=== PATIENT | male | born 1950 | race Caucasian/White ===

== ENCOUNTER 2021-12-14 21:43 | Emergency (ER) | payer MEDICARE, BC, SELFPAY ==
[2021-12-14 21:52] VITALS: PULSE 86; RESP 18; TEMP 36.9; BMI 26.2
--- NOTE | 2021-12-14 22:14 | ED_ITS ---
HPI - Male Genitourinary General Time Seen by Provider: 22:14 <Gladys Lebron MD - Last Filed: 12/15/21 01:26> Date Seen: 12/14/21 <Gladys Lebron MD - Last Filed: 12/15/21 01:26> Chief complaint: Urogenital Problems, Male <Gladys Lebron MD - Last Filed: 12/15/21 01:26> Stated complaint: fever, painful urination <Gladys Lebron MD - Last Filed: 12/15/21 01:26> Time Seen by Provider: 12/14/21 22:02 <Gladys Lebron MD - Last Filed: 12/15/21 01:26> Source: patient and RN notes reviewed <Gladys Lebron MD - Last Filed: 01:26> Mode of arrival: ambulatory <Gladys Lebron MD - Last Filed: 12/15/21 01:26> Limitations: no limitations <Gladys Lebron MD - Last Filed: 12/15/21 01:26> History of Present Illness HPI Narrative: Mr. Jim Is a very pleasant 71-year-old gentleman with remote history of urinary retention who comes to the [facility] with painful urinat ion. Patient notes the onset of urinary pain on WednesdayDecember 12. He states that this is also associated with a headache bilateral leg pain and some diarrhea. 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 that sometimes causes him headache. He did test for COVID at home on the 12 13 and then today. All his tests were negative. He denies a sore throat but has had a runny nose for approximately a week that he thinks his allergies. At home he felt like he had a fever but here in the emergency room initially that temp was normal. A 2nd check shows it to be 100.1 after he has been here and he received Tylenol. Patient denies cough wheezing chest pain difficulty breathing. He states that in the past he had to have a urinary catheter placed for urinary retention. He feels like he has some abdominal distension and thought it may be related to not being able to fully empty his bladder. He also notes that recently the bottom of his feet have been hurting him. <Gladys Lebron MD - Last Filed: 12/15/21 01:26> Related Data Home medications: Previous Rx's Medication Instructions Recorded cephalexin 500 mg capsule 500 mg PO TID Urinary infection 12/15/21 #30 caps <Gladys Lebron MD - Last Filed: 12/15/21 01:26> Allergies/Adverse reactions: Allergies Allergy/AdvReac Type Severity Reaction Status Date / Time Penicillins Allergy Unknown Verified 12/15/21 00:12 <Gladys Lebron MD - Last Filed: 12/15/21 01:26> Review of Systems Status of ROS: Reports: 10 or more systems reviewed and unremarkable except as noted in History and below <Gladys Lebrno MD - Last Filed: 12/15/21 01:26> Const: Reports: chills <Gladys Lebron MD - Last Filed: 12/15/21 01:26> Eyes: Denies: change in vision <Gladys Lebron MD - Last Filed: 12/15/21 01:26> ENMT: Denies: throat pain or throat swelling <Gladys Lebron MD - Last Filed: 12/15/21 01:26> Cardio: Denies: chest pain, palpitations or shortness of breath with exertion <Gladys Lebron MD - Last Filed: 12/15/21 01:26> Resp: Denies: shortness of breath or cough <Gladys Lebron MD - Last Filed: 12/15/21 01:26> GI: Reports: abdominal pain and diarrhea; Denies: vomiting or blood in stool <Gladys Lebron MD - Last Filed: 12/15/21 01:26> : Reports: painful urination, urinary frequency, urinary urgency and blood in urine <Gladys Lebron MD - Last Filed: 12/15/21 01:26> Musculo: Reports: back pain <Gladys Lebron MD - Last Filed: 12/15/21 01:26> Neuro: Reports: headache <Gladys Lebron MD - Last Filed: 12/15/21 01:26> Allergy/Immuno: Denies: throat swelling <Gladys Lebron MD - Last Filed: 12/15/21 01:26> Exam Const: Vital Signs, click to edit/add: Vital Signs - 24 hr 12/14/21 21:52 12/14/21 23:41 12/15/21 01:09 Temperature 98.5 F 100.1 F H 100.6 F H Pulse Rate [Pulse Oximeter] 86 86 Respiratory Rate 18 18 Blood Pressure [Ri ght Upper Arm] 140/63 H Pulse Oximetry 95 Oxygen Delivery Me thod Room Air Room Air 12/15/21 01:09 12/15/21 00:00 12/15/21 00:30 Temperature 100.6 F H Pulse Rate [Pulse Oximeter] 80 Respiratory Rate 18 18 Blood Pressure [Ri ght Upper Arm] 138/65 136/63 Pulse Oximetry 95 Oxygen Delivery Me thod Room Air Room Air 12/15/21 01:00 12/15/21 02:00 12/15/21 02:30 Temperature Pulse Rate [Pulse Oximeter] 90 88 Respiratory Rate 18 18 Blood Pressure [Ri ght Upper Arm] 136/57 L 148/66 H 147/70 H Pulse Oximetry 94 94 Oxygen Delivery Me thod Room Air Room Air Room Air <Gladys Lebron MD - Last Filed: 12/15/21 01:26> Vital Signs, click to edit/add: Vital Signs - 24 hr 12/14/21 21:52 12/14/21 23:41 12/15/21 01:09 Temperature 98.5 F 100.1 F H 100.6 F H Pulse Rate [Pulse Oximeter] 86 86 Respiratory Rate 18 18 Blood Pressure [Ri ght Upper Arm] 140/63 H Pulse Oximetry 95 Oxygen Delivery Me thod Room Air Room Air 12/15/21 01:09 12/15/21 00:00 12/15/21 00:30 Temperature 100.6 F H Pulse Rate [Pulse Oximeter] 80 Respiratory Rate 18 18 Blood Pressure [Ri ght Upper Arm] 138/65 136/63 Pulse Oximetry 95 Oxygen Delivery Me thod Room Air Room Air 12/15/21 01:00 12/15/21 02:00 12/15/21 02:30 Temperature Pulse Rate [Pulse Oximeter] 90 88 Respiratory Rate 18 18 Blood Pressure [Ri ght Upper Arm] 136/57 L 148/66 H 147/70 H Pulse Oximetry 94 94 Oxygen Delivery Me thod Room Air Room Air Room Air <Lani Yuan MD - Last Filed: 12/15/21 03:47> Documenting provider has reviewed patient's vital signs: yes <Gladys naranjo MD - Last Filed: 12/15/21 01:26> Common normals: no apparent distress, oriented x3, no limitations and alert <Gladys Lebron MD - Last Filed: 12/15/21 01:26> General appearance: cooperative, comfortable and well kempt <Gladys Lebron MD - Last Filed: 12/15/21 01:26> HENMT: Common normals: normocephalic and head/scalp atraumatic <Gladys Lebron MD - Last Filed: 12/15/21 01:26> Head and scalp: normocephalic and atraumatic <Gladys Lebron MD - Last Filed: 12/15/21 01:26> Mouth: oral and palatal mucosa normal <Gladys Lebron MD - Last Filed: 12/15/21 01:26> Throat: posterior oropharynx normal <Gladys Lebron MD - Last Filed: 12/15/21 01:26> Eye: Common normals: PERRL <Gladys Lebron MD - Last Filed: 12/15/21 01:26> General eye: normal appearance of both eyes <Gladys Lebron MD - Last Filed: 12/15/21 01:26> Pupil: PERRL <Gladys Lebron MD - Last Filed: 12/15/21 01:26> Neck & C-Spine: Common normals: full ROM, no lymphadenopathy and supple <Gladys Lebron MD - Last Filed: 12/15/21 01:26> Resp: Common normals: normal respiratory effort and clear to auscultation bilaterally <MD Arnoldo Ji Last Filed: 12/15/21 01:26> Effort & inspection: able to speak in complete sentences <MD Arnoldo Ji Last Filed: 12/15/21 01:26> Auscultation: clear to auscultation bilaterally <MD Arnoldo Ji Last Filed: 12/15/21 01:26> Cardio: Common normals: regular rate and regular rhythm <Gladys Lebron MD - Last Filed: 12/15/21 01:26> Rate: regular rate <Gladys Lebron MD - Last Filed: 12/15/21 01:26> Rhythm: regular rhythm <Gladys Lebron MD - Last Filed: 12/15/21 01:26> GI: Common normals: soft to palpation <Gladys Lebron MD - Last Filed: 12/15/21 01:26> Palpation: soft <Gladys Lebron MD - Last Filed: 12/15/21 01:26> Other: Complaints of mild discomfort when pressing abdomen. No specific masses but abdomen does appear to be somewhat protuberant. <Gladys Lebron MD - Last Filed: 12/15/21 01:26> : Common normals: no CVA tenderness <Gladys Lebron MD - Last Filed: 12/15/21 01:26> Bladder/kidney exam: no CVA tenderness <Gladys Lebron MD - Last Filed: 12/15/21 01:26> Back & Pelvis: Common normals: no CVA tenderness <Gladys Lebron MD - Last Filed: 12/15/21 01:26> Extremity: Common normals: normal to inspection <Gladys Lebron MD - Last Filed: 12/15/21 01:26> Other: No pain with palpation. Bottom of feet are with normal color. <Gladys Lebron MD - Last Filed: 12/15/21 01:26> Neuro: Common normals: oriented x3 <Gladys Lebron MD - Last Filed: 12/15/21 01:26> Sensorium/orientation: alert <Gladys Lebron MD - Last Filed: 12/15/21 01:26> Psych: Common normals: mental status grossly normal and thought process normal <Gladys Lebron MD - Last Filed: 12/15/21 01:26> Appearance: well kempt <MD Arnoldo Ji Last Filed: 12/15/21 01:26> Thought process: normal thought process <MD Arnoldo Ji Last Filed: 12/15/21 01:26> Skin: Common normals: no rashes or lesions noted <Gladys Lebron MD - Last Filed: 12/15/21 01:26> General skin exam: no rashes or lesions noted <Gladys Lebron MD - Last Filed: 12/15/21 01:26> Course Course Hospital Course: At this time patient complains of dysuria. Urine by visualization prior to being sent to lab clearly has sediment and is slightly pink. Will also add testing to include CBC, comprehensive panel, COVID, CRP, blood cultures, lactate. IV will be established 1 L of normal saline will be given. <Gladys Lebron MD - Last Filed: 12/15/21 01:26> Reevaluation(s) Reevaluation #1: Patient's urine clearly a positive for urinary tract infection. Currently waiting on CBC and comprehensive panel elevation of CRP noted. Patient will receive Rocephin 1 g IV. Patient noted to have 115 residual urinary volume for postvoid. Melgar catheters offered and patient would like to go forward with this. Uro jet ordered. <Gladys Lebron MD - Last Filed: 12/15/21 01:26> Reevaluation #2: Patient medications: Atorvastatin 20 mg charlene Flomax 0.4 mg daily Viagra <Gladys Lebron MD - Last Filed: 12/15/21 01:26> Vital Signs Vital signs: Initial Vital Signs Temperature 98.5 F 12/14/21 21:52 Temperature Source Temporal Artery Scan 12/14/21 21:52 Pulse Rate 86 12/14/21 21:52 Respiratory Rate 18 12/14/21 21:52 Blood Pressure Position Sitting 12/14/21 21:52 Oxygen Delivery Method 12/14/21 21:52 Vital Signs Temperature 98.5 F 12/14/21 21:52 Pulse Rate 86 12/14/21 21:52 Respiratory Rate 18 12/14/21 21:52 Oxygen Delivery Method 12/14/21 21:52 Temperature 100.6 F H 12/15/21 01:09 Pulse Rate 88 12/15/21 02:00 Respiratory Rate 18 12/15/21 02:00 Blood Pressure 147/70 H 12/15/21 02:30 Pulse Oximetry 94 12/15/21 02:00 Oxygen Delivery Method 12/15/21 02:30 <Gladys Lebron MD - Last Filed: 12/15/21 01:26> Initial Vital Signs Temperature 98.5 F 12/14/21 21:52 Temperature Source Temporal Artery Scan 12/14/21 21:52 Pulse Rate 86 12/14/21 21:52 Respiratory Rate 18 12/14/21 21:52 Blood Pressure Position Sitting 12/14/21 21:52 Oxygen Delivery Method 12/14/21 21:52 Vital Signs Temperature 98.5 F 12/14/21 21:52 Pulse Rate 86 12/14/21 21:52 Respiratory Rate 18 12/14/21 21:52 Oxygen Delivery Method 12/14/21 21:52 Temperature 100.6 F H 12/15/21 01:09 Pulse Rate 88 12/15/21 02:00 Respiratory Rate 18 12/15/21 02:00 Blood Pressure 147/70 H 12/15/21 02:30 Pulse Oximetry 94 12/15/21 02:00 Oxygen Delivery Method 12/15/21 02:30 <Lani Yuan MD - Last Filed: 12/15/21 03:47> MDM - Male Genitourinary MDM Narrative Medical decision making narrative: 1. Urinary tract infection-Rocephin 1 g IV. Patient has penicillin allergy but does not know what that might be. Will be observed in the ED while he is receiving this. Blood cultures have been drawn. 2. Urinary retention-this has been mild but patient does wish to have catheter inserted. I do believe this is reasonable as he did have residual noted on bladder ultrasound. Uro jet ordered. 3. Disposition-patient is signed out to my partner Dr. Yuan for further disposition and he review of remaining outstanding labs. <Gladys Lebron MD - Last Filed: 12/15/21 01:26> 1. Urinary tract infection-Rocephin 1 g IV. Patient has penicillin allergy but does not know what that might be. Will be observed in the ED while he is receiving this. Blood cultures have been drawn. 2. Urinary retention-this has been mild but patient does wish to have catheter inserted. I do believe this is reasonable as he did have residual noted on bladder ultrasound. Uro jet ordered. 3. Disposition-patient is signed out to my partner Dr. Yuan for further disposition and he review of remaining outstanding labs. Accepted care from Dr. Nation. I reviewed his normal lactate. He remains normotensive. I discussed his lab findings and plan of care. He has completed his Rocephin without complication. Will plan to discharge on Keflex 500 mg t.i .d.. He has a follow-up appointment already with his urologist next week. I have advised for him in the daylight hours to call the urologist's office to let them know that he will also need a catheter removal and trial of voiding at that appointment. I have asked the patient if he would stay in the area for 48 hours, in case there are signs of bacteremia or complications from his treatment. He had originally planned to leave tomorrow but states that he will delay his travel home by 1 day. His was agreeable to this. The only other addition I have for them is to use Desitin on the perirectal area when he mentions that he has some mild irritation from loose stools. <Lani Yuan MD - Last Filed: 12/15/21 03:47> Lab Data Attestation: I reviewed the patient's lab results. <Gladys Lebron MD - Last Filed: 12/15/21 01:26> Labs: Lab Results 12/14/21 12/14/21 12/14/21 Range/Units 00:10 00:10 22:22 WBC 13.04 H (4.50-11.00) K/uL RBC 4.15 L (4.30-5.90) m/uL Hgb 13.3 L (13.5-17.5) gm/dL Hct 38.7 (37.0-53.0) % MCV 93 (80-100) fL MCH 32 (26-34) pg MCHC 34 (32-36) gm/dL RDW Coeff of Carol 12.8 (11.5-15.5) % Plt Count 119 L (140-440) K/uL Neut % (Auto) 85.0 H (42.0-72.0) % Lymph % (Auto) 6.1 L (20-44) % [place] % (Auto) 6.1 (0.0-11.0) % Eos % (Auto) 1.5 (0.0-7.0) % Baso % (Auto) 0.1 (0.0-3.0) % Neut # (Auto) 11.10 H (1.7-7.0) K/uL Lymph # (Auto) 0.80 L (0.90-2.90) K/uL [place] # (Auto) 0.80 (0.00-0.90) K/UL Eos # (Auto) 0.20 (0.00-0.50) K/uL Baso # (Auto) 0.00 (0.00-0.30) K/uL Abs Immat Gran (auto) 0.15 (0.00-0.30) K/uL Sodium 136 (135-149) mmol/L Potassium 3.8 (3.6-5.1) mmol/L Chloride 103 (96-114) mmol/L Carbon Dioxide 25 (20-32) mmol/L BUN 21 (7-30) mg/dL Creatinine 1.2 (0.5-1.5) mg/dL Estimated Creat Clear 65.53 Estimated GFR 64 ml/min Glucose 139 H (60-115) mg/dL Venous Lactic Acid (Serial Order) Calcium 9.2 (8.4-10.6) mg/dL Total Bilirubin 0.5 (0.1-1.5) mg/dL AST 89 H (12-35) U/L ALT 61 H (4-50) U/L Alkaline Phosphatase 130 (40-150) U/L C-Reactive Protein 19.8 H (0.5-1.0) mg/dL Total Protein 7.2 (6.0-8.3) g/dL Albumin 4.0 (3.3-5.0) g/dL Urine Color Yellow (Yellow) Urine Appearance Cloudy A (Clear) Urine pH 5.5 (5.0-8.5) Ur Specific [place] 1.020 (1.000-1.030) Urine Protein 2+ A (Negative) Urine Glucose (UA) Negative (Negative) Urine Ketones Trace A (Negative) Urine Blood 3+ A (Negative) Urine Nitrite Positive A (Negative) Urine Bilirubin Negative (Negative) Urine Urobilinogen 1.0 (0.2-1.0) Ur Leukocyte Esterase 3+ A (Negative) Urine RBC 2-5 A (0-2) Urine WBC 25-50 A (0-5) Ur Squamous Epith Cells None (None-Few) Urine Bacteria Many A (None) SARS-CoV-2 (PCR) (Negative) Influenza Type A (PCR) (Negative) Influenza Type B (PCR) (Negative) 12/14/21 12/15/21 Range/Units 22:40 01:04 WBC (4.50-11.00) K/uL RBC (4.30-5.90) m/uL Hgb (13.5-17.5) gm/dL Hct (37.0-53.0) % MCV (80-100) fL MCH (26-34) pg MCHC (32-36) gm/dL RDW Coeff of Carol (11.5-15.5) % Plt Count (140-440) K/uL Neut % (Auto) (42.0-72.0) % Lymph % (Auto) (20-44) % [place] % (Auto) (0.0-11.0) % Eos % (Auto) (0.0-7.0) % Baso % (Auto) (0.0-3.0) % Neut # (Auto) (1.7-7.0) K/uL Lymph # (Auto) (0.90-2.90) K/uL [place] # (Auto) (0.00-0.90) K/UL Eos # (Auto) (0.00-0.50) K/uL Baso # (Auto) (0.00-0.30) K/uL Abs Immat Gran (auto) (0.00-0.30) K/uL Sodium (135-149) mmol/L Potassium (3.6-5.1) mmol/L Chloride (96-114) mmol/L Carbon Dioxide (20-32) mmol/L BUN (7-30) mg/dL Creatinine (0.5-1.5) mg/dL Estimated Creat Clear Estimated GFR ml/min Glucose (60-115) mg/dL Venous Lactic Acid (Serial Order) Calcium (8.4-10.6) mg/dL Total Bilirubin (0.1-1.5) mg/dL AST (12-35) U/L ALT (4-50) U/L Alkaline Phosphatase (40-150) U/L C-Reactive Protein (0.5-1.0) mg/dL Total Protein (6.0-8.3) g/dL Albumin (3.3-5.0) g/dL Urine Color (Yellow) Urine Appearance (Clear) Urine pH (5.0-8.5) Ur Specific [place] (1.000-1.030) Urine Protein (Negative) Urine Glucose (UA) (Negative) Urine Ketones (Negative) Urine Blood (Negative) Urine Nitrite (Negative) Urine Bilirubin (Negative) Urine Urobilinogen (0.2-1.0) Ur Leukocyte Esterase (Negative) Urine RBC (0-2) Urine WBC (0-5) Ur Squamous Epith Cells (None-Few) Urine Bacteria (None) SARS-CoV-2 (PCR) Negative SARS-CoV-2 (Negative) Influenza Type A (PCR) Negative PCR FLU A (Negative) Influenza Type B (PCR) Negative PCR FLU B (Negative) <Gladys Lebron MD - Last Filed: 12/15/21 01:26> Lab Results 12/14/21 12/14/21 12/14/21 Range/Units 00:10 00:10 22:22 WBC 13.04 H (4.50-11.00) K/uL RBC 4.15 L (4.30-5.90) m/uL Hgb 13.3 L (13.5-17.5) gm/dL Hct 38.7 (37.0-53.0) % MCV 93 (80-100) fL MCH 32 (26-34) pg MCHC 34 (32-36) gm/dL RDW Coeff of Carol 12.8 (11.5-15.5) % Plt Count 119 L (140-440) K/uL Neut % (Auto) 85.0 H (42.0-72.0) % Lymph % (Auto) 6.1 L (20-44) % [place] % (Auto) 6.1 (0.0-11.0) % Eos % (Auto) 1.5 (0.0-7.0) % Baso % (Auto) 0.1 (0.0-3.0) % Neut # (Auto) 11.10 H (1.7-7.0) K/uL Lymph # (Auto) 0.80 L (0.90-2.90) K/uL [place] # (Auto) 0.80 (0.00-0.90) K/UL Eos # (Auto) 0.20 (0.00-0.50) K/uL Baso # (Auto) 0.00 (0.00-0.30) K/uL Abs Immat Gran (auto) 0.15 (0.00-0.30) K/uL Sodium 136 (135-149) mmol/L Potassium 3.8 (3.6-5.1) mmol/L Chloride 103 (96-114) mmol/L Carbon Dioxide 25 (20-32) mmol/L BUN 21 (7-30) mg/dL Creatinine 1.2 (0.5-1.5) mg/dL Estimated Creat Clear 65.53 Estimated GFR 64 ml/min Glucose 139 H (60-115) mg/dL Venous Lactic Acid (Serial Order) Calcium 9.2 (8.4-10.6) mg/dL Total Bilirubin 0.5 (0.1-1.5) mg/dL AST 89 H (12-35) U/L ALT 61 H (4-50) U/L Alkaline Phosphatase 130 (40-150) U/L C-Reactive Protein 19.8 H (0.5-1.0) mg/dL Total Protein 7.2 (6.0-8.3) g/dL Albumin 4.0 (3.3-5.0) g/dL Urine Color Yellow (Yellow) Urine Appearance Cloudy A (Clear) Urine pH 5.5 (5.0-8.5) Ur Specific [place] 1.020 (1.000-1.030) Urine Protein 2+ A (Negative) Urine Glucose (UA) Negative (Negative) Urine Ketones Trace A (Negative) Urine Blood 3+ A (Negative) Urine Nitrite Positive A (Negative) Urine Bilirubin Negative (Negative) Urine Urobilinogen 1.0 (0.2-1.0) Ur Leukocyte Esterase 3+ A (Negative) Urine RBC 2-5 A (0-2) Urine WBC 25-50 A (0-5) Ur Squamous Epith Cells None (None-Few) Urine Bacteria Many A (None) SARS-CoV-2 (PCR) (Negative) Influenza Type A (PCR) (Negative) Influenza Type B (PCR) (Negative) 12/14/21 12/15/21 Range/Units 22:40 01:04 WBC (4.50-11.00) K/uL RBC (4.30-5.90) m/uL Hgb (13.5-17.5) gm/dL Hct (37.0-53.0) % MCV (80-100) fL MCH (26-34) pg MCHC (32-36) gm/dL RDW Coeff of Carol (11.5-15.5) % Plt Count (140-440) K/uL Neut % (Auto) (42.0-72.0) % Lymph % (Auto) (20-44) % [place] % (Auto) (0.0-11.0) % Eos % (Auto) (0.0-7.0) % Baso % (Auto) (0.0-3.0) % Neut # (Auto) (1.7-7.0) K/uL Lymph # (Auto) (0.90-2.90) K/uL [place] # (Auto) (0.00-0.90) K/UL Eos # (Auto) (0.00-0.50) K/uL Baso # (Auto) (0.00-0.30) K/uL Abs Immat Gran (auto) (0.00-0.30) K/uL Sodium (135-149) mmol/L Potassium (3.6-5.1) mmol/L Chloride (96-114) mmol/L Carbon Dioxide (20-32) mmol/L BUN (7-30) mg/dL Creatinine (0.5-1.5) mg/dL Estimated Creat Clear Estimated GFR ml/min Glucose (60-115) mg/dL Venous Lactic Acid (Serial Order) Calcium (8.4-10.6) mg/dL Total Bilirubin (0.1-1.5) mg/dL AST (12-35) U/L ALT (4-50) U/L Alkaline Phosphatase (40-150) U/L C-Reactive Protein (0.5-1.0) mg/dL Total Protein (6.0-8.3) g/dL Albumin (3.3-5.0) g/dL Urine Color (Yellow) Urine Appearance (Clear) Urine pH (5.0-8.5) Ur Specific [place] (1.000-1.030) Urine Protein (Negative) Urine Glucose (UA) (Negative) Urine Ketones (Negative) Urine Blood (Negative) Urine Nitrite (Negative) Urine Bilirubin (Negative) Urine Urobilinogen (0.2-1.0) Ur Leukocyte Esterase (Negative) Urine RBC (0-2) Urine WBC (0-5) Ur Squamous Epith Cells (None-Few) Urine Bacteria (None) SARS-CoV-2 (PCR) Negative SARS-CoV-2 (Negative) Influenza Type A (PCR) Negative PCR FLU A (Negative) Influenza Type B (PCR) Negative PCR FLU B (Negative) <Lani Yuan MD - Last Filed: 12/15/21 03:47> Discharge Plan Discharge Clinical Impression: Complicated urinary tract infection <Gladys Lebron MD - Last Filed: 12/15/21 01:26> Patient Disposition: Home, Self-Care <Gladys Lebron MD - Last Filed: 12/15/21 01:26> Instructions: Urinary Tract Infection in Men (DC), Melgar Catheter Placement and Care (ED) <Gladys Lebron MD - Last Filed: 12/15/21 01:26> Additional Instructions: He will begin antibiotics tonight to continue treatment of your urinary infection. The catheter often will stay in place for several days or even up to a few weeks. Please call your urologist right away in the daylight hours to confirm that you can have the catheter removed at your planned follow-up appointment next week. Please stay in the area for the next 48 hours, it is important that we can get a hold of you and initiate more aggressive IV antibiotic therapy if your blood cultures come back unexpectedly positive or if your condition worsens. Unfortunately, I cannot offer you a sooner urology appointment than the 1 that you already have pending. Symptoms worsened significantly in the interim such as fever, weakness, shaking chills, confusion, come back to the emergency department. Unfortunately, bladder spasms and catheter discomfort are common. We also discussed using Desitin cream, zinc oxide paste, to treat irritation around the rectum. This may also be used around the tip of the penis to help with irritation from the catheter. <Gladys Lebron MD - Last Filed: 12/15/21 01:26> Activity Level: No Restrictions <Gladys Lebron MD - Last Filed: 12/15/21 01:26> No Restrictions <Lani Yuan MD - Last Filed: 12/15/21 03:47> Discharge Diet: Regular <Gladys Lebron MD - Last Filed: 12/15/21 01:26> Regular <Lani Yuan MD - Last Filed: 12/15/21 03:47> Prescriptions: New cephalexin 500 mg capsule 500 mg PO TID Qty: 30 0RF <Gladys Lebron MD - Last Filed: 12/15/21 01:26> Follow Up/Referrals: Provider,Not a Local [Primary Care Provider] - <Gladys Lebron MD - Last Filed: 12/15/21 01:26> Stand Alone Forms: [facility] Info Instructions <Gladys Lebron MD - Last Filed: 12/15/21 01:26>
[2021-12-14 23:37] LABS: Appearance Urine Cloudy (Clear); Bilirubin Urine Negative (Negative); Blood Urine 3+ (Negative); Color Urine Yellow (Yellow); Glucose Urine Negative (Negative); Ketones Urine Trace (Negative); Leukocyte Esterase Urine 3+ (Negative); Nitrite Urine Positive (Negative); Protein Urine 2+ (Negative); pH Urine 5.5 (5.0-8.5)
[2021-12-14 23:41] VITALS: BP 140/63; PULSE 86; RESP 18; TEMP 37.8; O2SAT 95
[2021-12-15] VITALS: BP 138/65; RESP 18
[2021-12-15 00:05] LABS: PCR FLU A Negative PCR FLU A (Negative); PCR FLU B Negative PCR FLU B (Negative)
[2021-12-15] MEDS: ACETAMINOPHEN 500 MG TABLET 1000 MG PO (00:10)
[2021-12-15 00:16] LABS: SARS PCR* Negative SARS-CoV-2 (Negative)
[2021-12-15 00:18] LABS: Basophils Percent Auto 0.1 % (0.0-3.0); Eosinophils Percent Auto 1.5 % (0.0-7.0); Hematocrit 38.7 % (37.0-53.0); Hemoglobin* 13.3 gm/dL (13.5-17.5); Immature Granulocytes Abs Auto 0.15 K/uL (0.00-0.30); Lymphocytes Percent Auto 6.1 % (20-44); Mean Corpuscular HGB Conc 34 gm/dL (32-36); Mean Corpuscular Hemoglobin 32 pg (26-34); Mean Corpuscular Volume 93 fL (80-100); Monocytes Percent Auto 6.1 % (0.0-11.0); Platelet Count* 119 K/uL (140-440); RDW Coefficient of Variation % 12.8 % (11.5-15.5); Red Blood Count 4.15 m/uL (4.30-5.90); White Blood Count* 13.04 K/uL (4.50-11.00)
[2021-12-15 00:20] LABS: Slide Review Reflex No
[2021-12-15 00:23] LABS: Bacteria Urine Many; WBC Urine 25-50 (0-5)
[2021-12-15 00:30] VITALS: BP 136/63; PULSE 80; RESP 18; O2SAT 95
[2021-12-15 00:32] LABS: Chloride* 103 mmol/L (96-114); Sodium* 136 mmol/L (135-149)
[2021-12-15 00:33] LABS: Potassium* 3.8 mmol/L (3.6-5.1)
[2021-12-15 00:35] LABS: Alkaline Phosphatase* 130 U/L (40-150); Aspartate Amino Transferase* 89 U/L (12-35); Bilirubin Total* 0.5 mg/dL (0.1-1.5); Carbon Dioxide* 25 mmol/L (20-32); Creatinine* 1.2 mg/dL (0.5-1.5); Est. Creatinine Clearance* 65.53; Estimated Glomerular Filt Rate 64 ml/min; Total Protein* 7.2 g/dL (6.0-8.3)
[2021-12-15 00:36] LABS: Alanine Aminotransferase* 61 U/L (4-50); Blood Urea Nitrogen* 21 mg/dL (7-30); Calcium* 9.2 mg/dL (8.4-10.6); Glucose* 139 mg/dL (60-115)
[2021-12-15 00:55] LABS: C Reactive Protein* 19.8 mg/dL (0.5-1.0)
[2021-12-15 01:00] VITALS: BP 136/57; PULSE 90; RESP 18; O2SAT 94
[2021-12-15 01:09] VITALS: TEMP 38.1
[2021-12-15 01:37] LABS: Lactate Sepsis w/Reflex* 1.4 mmol/L (0.5-1.9)
[2021-12-15] MEDS: cefTRIAXone 1 GM in 0.9 % SODIUM CHLORIDE Mini-bag 100 ML IVPB (01:42)
[2021-12-15] MEDS: 0.9 % SODIUM CHLORIDE 1000 ml 1,000 ML IV (01:45)
[2021-12-15] MEDS: lidocaine HCL 2 % JELLY (TOP) STERILE 6 ML UR (01:45)
[2021-12-15 02:00] VITALS: BP 148/66; PULSE 88; RESP 18; O2SAT 94
[2021-12-15 02:30] VITALS: BP 147/70
== END 2021-12-15 02:57 | disposition home or self-care (01) ==
PROVIDERS: Family Medicine; Emergency Provider Family Medicine
DX: N39.0 Urinary tract infection, site not specified (principal); R33.9 Retention of urine, unspecified
CPT/HCPCS: 36415; 51702; 80053; 81001; 85025; 86140; 87040; 87086; 87186; 87631; 96374; 99284; A9270; J0696; J7030

== ENCOUNTER 2021-12-16 09:25 | Emergency (ER) | payer MEDICARE, BC, SELFPAY ==
[2021-12-16 09:41] VITALS: BP 148/80; PULSE 68; RESP 18; TEMP 36.7; O2SAT 95; BMI 28.2
--- NOTE | 2021-12-16 11:04 | ED.NURSE ---
urine is draining more clear urine now. no leaking. catheter bulb was intact with saline. did aspirate and was in good alignment. catheter draining well now. emptied additional 100 ml reports that he only has the pain when he needs to have a bm.
--- NOTE | 2021-12-16 11:13 | ED.MALEGU ---
HPI - Male Genitourinary General Date Seen: 12/16/21 Chief complaint: Urogenital Problems, Male Stated complaint: Catheter issues/leaking Time Seen by Provider: 12/16/21 09:53 Source: patient Mode of arrival: ambulatory Limitations: no limitations History of Present Illness HPI Narrative: Patient is delightful 71-year-old gentleman who was in the emergency room yesterday, for urinary retention, UTI, and some hematuria. Is a Melgar catheter in place and seems to be flowing around the catheter. No fevers or chills nausea vomiting but would really like the catheter removed. He was placed on Keflex, given a shot of Rocephin in the emergency department. I do note that his urine culture is growing Gram-negative rods. Blood cultures are negative to date. Related Data Previous Rx's Medication Instructions Recorded cephalexin 500 mg capsule 500 mg PO TID Urinary infection 12/15/21 #30 caps Allergies Allergy/AdvReac Type Severity Reaction Status Date / Time Penicillins Allergy Unknown Verified 12/15/21 00:12 Review of Systems Status of ROS: Reports: 6 or more systems reviewed and unremarkable except as noted in History and below PFSH PFS Social History Smoking Status: Former smoker Do you use any of these nicotine containing products: None Second hand tobacco smoke exposure: No How often do you have a drink containing alcohol: 2-4 times a month How many standard drinks containing alcohol do you have on a typical day: 1 or 2 How often do you have six or more drinks on one occasion: Never AUDIT-C Alcohol total score: 2 Non-prescribed substance use: denies use service: Yes Exam Narrative: Exam Narrative: Patient is a maurice gentleman in no apparent distress alert and oriented x3, his abdomen is soft there is no guarding no past splenomegaly, catheter is protruding from his penis with no evidence of redness swelling and not urinating around this area. His catheter shows some clearish reddish tinged urine. But otherwise is draining very well. His abdomen has no percussible tenderness. New No CVA tenderness is noted, there is no groin all swelling, I did have the nurse check him with bladder scan he had 60 mL urine, she checked the ball but was all good. And flushed at x1. At this point he is requesting to go home and I do not think this is unreasonable, his catheterization is draining very well. He is on Keflex which gives good brought strength coverage for Gram-negative rods which likely is E coli. We did talk about worsening signs symptoms he will come back and be seen if this occurs. Const: Vital Signs, click to edit/add: Vital Signs - 24 hr 12/16/21 09:41 Temperature 98.0 F Pulse Rate [Right Pulse Oximeter] 68 Respiratory Rate 18 Blood Pressure [Ri ght Upper Arm] 148/80 H Pulse Oximetry 95 Oxygen Delivery Me thod Room Air Course Vital Signs Vital signs: Initial Vital Signs Temperature 98.0 F 12/16/21 09:41 Temperature Source Temporal Artery Scan 12/16/21 09:41 Pulse Rate 68 12/16/21 09:41 Respiratory Rate 18 12/16/21 09:41 Blood Pressure 148/80 H 12/16/21 09:41 Blood Pressure Mean 102 12/16/21 09:41 Blood Pressure Position Sitting 12/16/21 09:41 Pulse Oximetry 95 12/16/21 09:41 Oxygen Delivery Method 12/16/21 09:41 Vital Signs Temperature 98.0 F 12/16/21 09:41 Pulse Rate 68 12/16/21 09:41 Respiratory Rate 18 12/16/21 09:41 Blood Pressure 148/80 H 12/16/21 09:41 Pulse Oximetry 95 12/16/21 09:41 Oxygen Delivery Method 12/16/21 09:41 Temperature 98.0 F 12/16/21 09:41 Pulse Rate 68 12/16/21 09:41 Respiratory Rate 18 12/16/21 09:41 Blood Pressure 148/80 H 12/16/21 09:41 Pulse Oximetry 95 12/16/21 09:41 Oxygen Delivery Method 12/16/21 09:41 Discharge Plan Discharge Clinical Impression: Urinary tract infection, Melgar catheter in place Patient Disposition: Home w/ Parent or Adult Instructions: Urinary Tract Infection in Men (ED) Additional Instructions: Home rest please call tomorrow to check on whether not the sensitivities are right with your UTI. Return if increasing fevers chills nausea vomiting or other issues. Prescriptions: No Action cephalexin 500 mg capsule 500 mg PO TID Qty: 30 0RF Follow Up/Referrals: Provider,Not a Local [Primary Care Provider] - Stand Alone Forms: [employer] Info Instructions
== END 2021-12-16 11:20 | disposition home or self-care (01) ==
PROVIDERS: Emergency Provider Family Medicine
DX: N39.0 Urinary tract infection, site not specified (principal)
CPT/HCPCS: 99282

== ENCOUNTER 2022-02-07 10:06 | Emergency (ER) | payer MEDICARE, BC, SELFPAY ==
[2022-02-07 10:13] VITALS: BP 123/79; PULSE 71; RESP 20; TEMP 36.6; O2SAT 96; BMI 27.5
[2022-02-07 11:06] LABS: PCR FLU A Negative PCR FLU A (Negative); PCR FLU B Negative PCR FLU B (Negative); PCR RSV Negative PCR RSV (Negative)
--- NOTE | 2022-02-07 11:12 | ED.GENADULT ---
HPI - General Adult General Chief complaint: Cough Stated complaint: Coming down with bronchitis Time Seen by Provider: 02/07/22 11:02 History of Present Illness HPI narrative: 71-year-old man presenting to the emergency department with his with concern of cough and cold symptoms. Cough cough is actually less when prone. He has not had a fever but does have body aches, shoulders ache, slight headache. Notes a history of a bronchitis around this time last year cured up within 2 days with a Z-Jesus. 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 I believe then subsequent pneumonia. Does have some runny nose now. No chest pain. Here in town from [place] hoping to see the grand kids. Started feeling sick yesterday. Related Data Home Medications Medication Instructions Recorded Confirmed atorvastatin 10 mg tablet 10 mg PO DAILY 02/07/22 02/07/22 tamsulosin 0.4 mg capsule (Flomax) 0.8 mg PO DAILY 02/07/22 02/07/22 Previous Rx's Medication Instructions Recorded nirmatrelvir 300 mg (150 mg See Rx Instructions PO .COMPLEX 02/07/22 x2)-ritonavir 100 mg tablet,dose #30 ea pack(EUA) (Paxlovid) Allergies Allergy/AdvReac Type Severity Reaction Status Date / Time Penicillins Allergy Unknown Verified 12/15/21 00:12 Review of Systems Status of ROS: Reports: 6 or more systems reviewed and unremarkable except as noted in History and below PFSH PFSH Social History Smoking Status: Former smoker Do you use any of these nicotine containing products: None Second hand tobacco smoke exposure: No How often do you have a drink containing alcohol: 2-4 times a month How many standard drinks containing alcohol do you have on a typical day: 1 or 2 How often do you have six or more drinks on one occasion: Never AUDIT-C Alcohol total score: 2 Non-prescribed substance use: denies use service: Yes Exam Narrative: Exam Narrative: Seated tall in the bed. Breathing easily. Speaking easily. Sounds congested. Oropharynx is a little irritated in the far posterior oropharynx but no significant cobblestoning. Neck is supple without lymphadenopathy. Cardiovascular is regular rate and rhythm. Lungs are clear with breath sounds throughout. There is no supraclavicular crepitus. No facial swelling erythema or tenderness. Moving all extremities out difficulty. Well-perfused. Const: Vital Signs, click to edit/add: Vital Signs - 24 hr 02/07/22 10:13 Temperature 97.9 F Pulse Rate [Right Pulse Oximeter] 71 Respiratory Rate 20 Blood Pressure [Le ft Upper Arm] 123/79 Pulse Oximetry 96 Oxygen Delivery Me thod Room Air Documenting provider has reviewed patient's vital signs: yes Course Vital Signs Vital signs: Initial Vital Signs Temperature 97.9 F 02/07/22 10:13 Temperature Source Temporal Artery Scan 02/07/22 10:13 Pulse Rate 71 02/07/22 10:13 Respiratory Rate 20 02/07/22 10:13 Blood Pressure 123/79 02/07/22 10:13 Blood Pressure Mean 93 02/07/22 10:13 Blood Pressure Position Sitting 02/07/22 10:13 Pulse Oximetry 96 02/07/22 10:13 Oxygen Delivery Method 02/07/22 10:13 Vital Signs Temperature 97.9 F 02/07/22 10:13 Pulse Rate 71 02/07/22 10:13 Respiratory Rate 20 02/07/22 10:13 Blood Pressure 123/79 02/07/22 10:13 Pulse Oximetry 96 02/07/22 10:13 Oxygen Delivery Method 02/07/22 10:13 Temperature 97.9 F 02/07/22 10:13 Pulse Rate 71 02/07/22 10:13 Respiratory Rate 20 02/07/22 10:13 Blood Pressure 123/79 02/07/22 10:13 Pulse Oximetry 96 02/07/22 10:13 Oxygen Delivery Method 02/07/22 10:13 Medical Decision Making MDM Narrative Medical decision making narrative: Triple swab has already been collected. He would prefer to wait on that result before moving on chest x-ray. Ultimately was COVID positive. Has good renal function --confirmed with patient to move forward with Paxlovid on followup phone call. Lab Data Labs: Lab Results 02/07/22 02/07/22 Range/Units 10:25 12:20 Sodium 140 (135-149) mmol/L Potassium 4.8 (3.6-5.1) mmol/L Chloride 105 (96-114) mmol/L Carbon Dioxide 25 (20-32) mmol/L BUN 17 (7-30) mg/dL Creatinine 0.9 (0.5-1.5) mg/dL Estimated Creat Clear 76.49 Estimated GFR 90 ml/min Glucose 101 (60-115) mg/dL Calcium 9.3 (8.4-10.6) mg/dL SARS-CoV-2 (PCR) POSITIVE SARS-CoV-2 A (Negative) Influenza Type A (PCR) Negative PCR FLU A (Negative) Influenza Type B (PCR) Negative PCR FLU B (Negative) RSV (PCR) Negative PCR RSV (Negative) Discharge Plan Discharge Clinical Impression: SARS-CoV-2 positive, Myalgia Patient Disposition: Home, Self-Care Condition: Stable Additional Instructions: When this blood test is resulted I will call you to confirm whether not you can take this Paxlovid. I have sent this meanwhile to the pharmacy presuming that all will be well. If you start the Paxlovid, should hold your atorvastatin for 8 days, and as I verified in reviewing medication interactions, your tamsulosin as well for the same time. Given what you said, if that is not possible you could dose the tamsulosin every other day. Stay well-hydrated. Quarantine for 10 days from 1st day of symptoms. If becoming increasingly short of breath, get an oximetry monitor and return to the emergency department for oxygen saturations of 90% or less. Prescriptions: New Paxlovid (EUA) 300 mg (150 mg x 2)-100 mg tablets,dose pack See Rx Instructions .ROUTE .COMPLEX Qty: 30 0RF Rx Instructions: take TWO 150 mg tablets of nirmatrelvir with ONE 100 mg tablet of ritonavir twice daily for 5 days No Action tamsulosin [Flomax] 0.4 mg capsule 0.8 mg PO DAILY atorvastatin 10 mg tablet 10 mg PO DAILY Follow Up/Referrals: Provider,Not a Local [Primary Care Provider] - Stand Alone Forms: [employer] Info Instructions
[2022-02-07 11:29] LABS: SARS PCR* POSITIVE SARS-CoV-2 (Negative)
--- OUTSIDE RECORDS SUMMARY | 2022-02-07 12:08 | XMS_ITS | Continuity of Care Document ---
:1950 Author Organization [facility] Care Team Providers Name Role Phone [facility] Unavailable Unavailable Problems Combined list of problems from Department of Defense and [facility] facilities. It does not include entries that were removed or entered in error. Problem Status Onset Problem Date of Comments Source Date Type Resolution History of cardiac Active 06/15/19 Condition Mar 13, 2021 [facility] catheterization 21 Entered By: ALLYSSA GARCIA Comment: cardiac cath LM-NL/LAD-lumina l irreg/LCX-lumina l irreg/RCA-lumina l irregularity/khanh us - normal/ EF 65%/ED 20 Adenomatous polyp Active 02/04/20 Condition Jun 21, 013 [facility] of colon (SNOMED CT Entered By : [facility] [id number]) [place] MAS Comment: tubular adenomas, 2012Jun 07, 2015 Entered By: AUGUSTINE ENRIQUEZ Comment: colonosc 2014 - next due 2017 Benign prostatic Active Condition [facility] hyperplasia (SNOMED [facility] [place] [id number]) Elevated PSA Active Condition [place] [facility] A (SNOMED CT [facility] [id number]) H/O Malignant Active Condition Mar 03, 2017 [facility] melanoma (SNOMED CT Entered By : [facility] [id number]) AUGUSTINE ENRIQUEZ Comment: right shoulder H/O: osteoarthritis Active Condition Jun 07, 2015 [facility] Entered By: AUGUSTINE PATEL Comment: left knee corticosteroid injection 06/18 Impaired fasting Active Condition [facility] glucose [facility] Tobacco dependence Active Condition [facility] [place] [facility] remission [facility] Diagnosis: Active Diagnosis [facility] ICD-10-CM N41.0 [facility] Acute prostatitiswith Provider Comments: Acute prostatitis Diagnosis: Active Diagnosis [place] ICD-10-CM Z23 [facility] CLI CARL Encounter for immunizationwith Provider Comments: Encounter for Immunization Diagnosis: Active Diagnosis [place] ICD-10-CM N39.0 [facility] Urinary tract infection, site not specifiedwith Provider Comments: Urinary tract infection, site not specified Diagnosis: Active Diagnosis [place] ICD-10-CM R73.01 [facility] Impaired fasting glucosewith Provider Comments: Impaired fasting glucose ([facility] [id number]) Diagnosis: Active Diagnosis [place] ICD-10-CM M17.12 [facility] Unilateral primary osteoarthritis, left kneewith Provider Comments: Unilateral Primary Osteoarthritis, left Knee Diagnosis: Active Diagnosis [place] ICD-10-CM R68.89 [facility] Other general symptoms and signswith Provider Comments: General Symptoms & Signs Diagnosis: Active Diagnosis [facility] ICD-10-CM J06.9 [facility] Acute upper respiratory infection, unspecifiedwith Provider Comments: Acute upper Respiratory Infection, unspecified Diagnosis: Active Diagnosis [facility] ICD-10-CM Z71.9 [facility] Counseling, unspecifiedwith Provider Comments: Counseling, unspecified Diagnosis: Active Diagnosis [facility] ICD-10-CM N40.1 [facility] Benign prostatic hyperplasia with lower urinary tract sympwith Provider Comments: Benign prostatic hyperplasia ([facility] [id number]) Diagnosis: Active Diagnosis [place] ICD-10-CM S27.1XXS [facility] Traumatic hemothorax, sequelawith Provider Comments: Traumatic Hemothorax, Sequela Diagnosis: Active Diagnosis [place] ICD-10-CM Z00.01 [facility] Encounter for general adult medical exam w abnormal findingswith Provider Comments: Encounter for General Adult Medical Examination with Abnormal Findings Medications Combined list of outpatient medications from Department of Defense and [facility] facilities. Medications provided include 1) outpatient medications from the last 15 months, and 2) patient-reported medications. Medication Details Route Status Patient Prescription Prescription Last Ordering Order Source Instructions Expires Number Dispense Provider Date Date ASPIRIN TAKE ONE ORAL ACTIVE Nakia MAS 01/08/ MATHEW MONAHAN 81MG TAB,EC TABLET ATRICIA J 2010 [facility] BY MOUTH EVERY 24 HOURS ATORVASTATI TAKE ONE ORAL ACTIVE 11/06/2022 [id number] MINA ,DREA 11/05/ BRONWYN N CA 10MG TABLET 2 2021 [facility] TAB BY [facility]OUTH CLINIC AT BEDTIME FOR CHOLESTE ROL ATORVASTATI TAKE ORAL DISCONT 10/25/2021 [id number] MINA, DREA 12/23/ BRONWYN N CA 20MG ONE-HALF INUED 2 2020 [facility] TAB TABLET CLINIC BY MOUTH AT BEDTIME FOR CHOLESTE ROL CIPROFLOXAC TAKE ONE ORAL 01/24/2022 [id number] M ILLER,RE 12/25/ [place] IN HCL TABLET 2 2021 [facility] 500MG TAB BY MOUTH EVERY 12 HOURS FOR PROSTATI TIS (TAKE 2 HOURS BEFORE OR 6 HOURS AFTER PRODUCTS WITH IRON, CALCIUM, ALUMINUM , MAGNESIU M OR ZINC) FINASTERIDE TAKE ONE ORAL DISCONT 10/25/2021 [id number] MINA,DREA 11/30/ JAMESTO 5MG TAB TABLET INUED 1 2020 [facility] BY [facility] EVERY 24 HOURS FISH OIL TAKE BY ORAL ACTIVE MAS,P 01/08/ FAR GO CAP,ORAL MOUTH ATRICIA J 2010 [facility] EVERY MORNING OTHER-ENTER TAKE VIT ORAL ACTIVE MAS,P 01/08/ [place] NAME IN D 3 1999 ATRICIA J 2010 [facility] S COMMENTS UNITS CAP/TAB MOUTH EVERY MORNING PSYLLIUM TAKE 1 ORAL ACTIVE MAS,P 01/08/ FARG O SUGAR FREE TEASPOON ATRICIA J 2010 [facility] PWDR,ORAL FUL BY MOUTH PRN SULFAMETHOX TAKE 1.5 ORAL DISCONT 01/24/2022 [id number] M ILLER,RE 12/25/ [place] AZOLE TABLETS INUED 2 2021 [facility] 800MG/TRIME (800/160 THOPRIM MG) BY 160MG TAB MOUTH EVERY 12 HOURS ACUTE PROSTATI TIS SULFAMETHOX TAKE 1 ORAL DISCONT 01/24/2022 [id number] BURK ,RE 12/25/ [place] AZOLE TABLET INUED 2 2021 [facility] 800MG/TRIME (800/160 THOPRIM MG) BY 160MG TAB MOUTH EVERY 12 HOURS ACUTE PROSTATI TIS TAMSULOSIN TAKE TWO ORAL ACTIVE 11/06/2022 [id number] DREA ENRIQUEZ 11/05/ JAMESTO HCL 0.4MG CAPSULES 2 2021 [facility] CAP BY [facility]OUTH [facility]INIC EVERY 24 HOURS AFTER SAME MEAL FOR IMPROVED URINATIO N TAMSULOSIN TAKE ONE ORAL DISCONT 10/25/2021 [id number] G EIERDREA 11/30/ JAMESTO HCL 0.4MG CAPSULE INUED 2 2020 [facility] CAP BY [facility]INIC EVERY 24 HOURS AFTER SAME MEAL FOR IMPROVED URINATIO N ZZMULTIVIT TAKE ONE ORAL ACTIVE MAS,P GO W/MINERALS TABLET ATRICIA J 2010 [facility] TAB (WITH MOUTH Q VIT K) DAY Allergies, Adverse Reactions, Alerts Combined list of allergies from Department of Defense and Veterans Affairs facilities. It does not include entries that were removed or entered in error. Substance Category Reaction Severity Reaction Status Date Comments S ource type Reported PENICILLIN Propensity Propensity active [place] to adverse to adverse 1 [facility] reactions to reactions drug to drug (finding) (finding) Immunizations Combined list of available immunizations from the Department of Defense and Veterans Affairs facilities. Immunization Series Date Administered Site Reaction Lot CVX Drug St atus Comments Source Given By Number Code Cosmetologist INFLUENZA complet J AMESTO VACCINE, 2021 ed [facility] QUADRIVALENT, CLINIC ADJUVANTED COVID-19 4 complet FA RGO (MODERNA), 2021 ed [facility] MRNA, LNP-S, PF, 100 MCG/0.5ML DOSE OR 50 MCG/0.25ML DOSE COVID-19 3 complet FA RGO (MODERNA), 2020 ed [facility] MRNA, LNP-S, PF, 100 MCG OR 50 MCG DOSE INFLUENZA, complet JAMESTO INJECTABLE, 2020 ed [facility] QUADRIVALENT, [facility] PRESERVATIVE FREE COVID-19 2 complet FA RGO (MODERNA), 2020 ed [facility] MRNA, LNP-S, PF, 100 MCG/0.5 ML DOSE COVID-19 1 complet FA RGO (MODERNA), 2020 ed [facility] MRNA, LNP-S, PF, 100 MCG/0.5 ML DOSE INFLUENZA, complet PUBLIC UNSPECIFIED 2020 ed HE ALTH FORMULATION SE RVICE ZOSTER 1 complet TONY STO RECOMBINANT 2017 ed [facility] INFLUENZA, complet PUBLIC HIGH DOSE 2017 ed HEAL TH SEASONAL SERVI CE PNEUMOCOCCAL complet [employer]Co [place] POLYSACCHARID 2017 ed [id number] [facility] E [id number] INFLUENZA, complet [place] HIGH DOSE 2016 ed [facility] SEASONAL INFLUENZA, complet [place] HIGH DOSE 2014 ed [facility] SEASONAL PNEUMOCOCCAL complet Wyet h lot [place] CONJUGATE PCV 2015 ed # [id number] [facility] 13 exp 06/19 DTAP, complet SANOFI FARG O UNSPECIFIED 2013 ed LOT:[id number] [facility] FORMULATION AA EXP: INFLUENZA, complet [place] UNSPECIFIED 2012 ed [facility] FORMULATION ZOSTER LIVE complet Merck , [place] 2012 ed lot [facility] #[id number], Exp. Mar 14, 2013 INFLUENZA, complet PUBLIC UNSPECIFIED 2011 ed HE ALTH FORMULATION SE RVICE TD(ADULT) complet [place] UNSPECIFIED 2011 ed [facility] FORMULATION INFLUENZA, complet [place] UNSPECIFIED 2010 ed [facility] FORMULATION PNEUMOCOCCAL, complet Eileen ck lot [place] UNSPECIFIED 2010 ed # [id number] [facility] FORMULATION exp [id number] Results Combined list of recent chemistry, hematology and other laboratory results from Department of Defense and Veterans Affairs, ranging from 15 months to all on record, depending upon the facility. Order Results Value Reference Date Interpretation Specimen Commen ts Source Name Range PROSTATE PROSTATE 17.59 0 - 4 12/22 H Specimen Type: SERUM [facility] SPECIFIC SPECIFIC /2021 Comment: PSA comments: Finasteride and Dutasteride can cause a reduction in serum PSA by approximately 50%. Free PSA levels are not affected. Due to potential for Biotin interference, especially in pat HCS ANTIGEN AG ients taking bio tin in doses of thousands of micrograms/day, the following bias may be seen: Positive: B12, Folate, FT4, Vit D, Testosterone Negative: CEA, PTH, BNP, PSA, HCG, Troponin, HCV, AHBs, HbsAG [MASS/VOLU Ordering Pro vider: MALINA BURK ME] IN Report Released Date/Time: Dec 25, 2020 10:29 AM SERUM OR Reporting Lab: [facility] [address] [place] [address] Performing Lab: [facility] [address] [place] [address] URINALYS SPECIFIC 1.012 1.000 - 12/22 Specimen Type: URINE [facility] IS GRAVITY OF 1.030 /2021 Comment: Pat ients with asymptomatic bacteriuria/funguria/pyuria without UTI symptoms usually do not require treatment with an antimicrobial agent. [facility] URINE Ordering Provid er: MALINA BURK Report Released Date/Time: Dec 25, 2020 10:29 AM Reporting Lab: [facility] [address] [place] [address] Performing Lab: [facility] [address] [place] [address] URINALYS KETONES Neg 12/22 Specimen Type: URINE [facility] IS [PRESENCE] /2021 Comment: Pat ients with asymptomatic bacteriuria/funguria/pyuria without UTI symptoms usually do not require treatment with an antimicrobial agent. [facility] IN URINE Ordering Provi kasie: MALINA BURK Report Released Date/Time: Dec 25, 2020 10:29 AM Reporting Lab: [facility] [address] [place] [address] Performing Lab: [facility] [address] [place] [address] URINALYS GLUCOSE Neg 12/22 Specimen Type: URINE [facility] IS [MASS/VOLU /2021 Comment: Pat ients with asymptomatic bacteriuria/funguria/pyuria without UTI symptoms usually do not require treatment with an antimicrobial agent. [facility] ME] IN Ordering Provid er: MALINA BURK URINE BY Report Release d Date/Time: Dec 25, 2020 10:29 AM TEST STRIP Reporting La b: [facility] [address] [place] [address] Performing Lab: [facility] [address] [place] [address] URINALYS PROTEIN Neg 12/22 Specimen Type: URINE [facility] IS [MASS/VOLU /2021 Comment: Pat ients with asymptomatic bacteriuria/funguria/pyuria without UTI symptoms usually do not require treatment with an antimicrobial agent. [facility] ME] IN Ordering Provid er: MALINA BURK URINE BY Report Release d Date/Time: Dec 25, 2020 10:29 AM TEST STRIP Reporting La b: [facility] [address] [place] [address] Performing Lab: [facility] [address] [place] [address] URINALYS PH OF 5.5 5.0 - 8.0 12/22 Specimen Type : URINE [facility] IS URINE BY /2021 Comment: Patie nts with asymptomatic bacteriuria/funguria/pyuria without UTI symptoms usually do not require treatment with an antimicrobial agent. [facility] TEST STRIP Ordering Pro vider: MALINA BURK Report Released Date/Time: Dec 25, 2020 10:29 AM Reporting Lab: [facility]CS [address] [place] [address] Performing Lab: [facility] [address] [place] [address] URINALYS LEUKOCYTES 4-7 0 - 7 12/22 Specimen Typ e: URINE [facility] IS [#/AREA] /2021 Comment: Patie nts with asymptomatic bacteriuria/funguria/pyuria without UTI symptoms usually do not require treatment with an antimicrobial agent. [facility] IN URINE Ordering Provi kasie: MALINA BURK SEDIMENT Report Release d Date/Time: Dec 25, 2020 10:29 AM BY Reporting Lab: [facility] MICROSCOPY [address] [place] [address] HIGH POWER Performing L ab: [facility] FIELD [address] [place] [address] URINALYS BACTERIA 1+ 12/22 Specimen Type: URINE [facility] IS [PRESENCE] /2021 Comment: Pat ients with asymptomatic bacteriuria/funguria/pyuria without UTI symptoms usually do not require treatment with an antimicrobial agent. [facility] IN URINE Ordering Provi kasie: MALINA BURK SEDIMENT Report Release d Date/Time: Dec 25, 2020 10:29 AM BY LIGHT Reporting Lab: [facility] MICROSCOPY [address] [place] [address] Performing Lab: [facility] [address] [place] [address] URINALYS ERYTHROCYT 8-20 0 - 3 12/22 H Specimen Typ e: URINE [facility] IS ES /2021 Comment: Patien ts with asymptomatic bacteriuria/funguria/pyuria without UTI symptoms usually do not require treatment with an antimicrobial agent. [facility] [#/AREA] Ordering Provi kasie: MALINA BURK IN URINE Report Release d Date/Time: Dec 25, 2020 10:29 AM SEDIMENT Reporting Lab: [facility] H[facility] BY [address] [place] [address] MICROSCOPY Performing L ab: [facility]CS HIGH POWER [address] [place] [address] FIELD URINALYS HEMOGLOBIN 2+ 12/22 Specimen Typ e: URINE [facility] IS [PRESENCE] /2021 Comment: Pat ients with asymptomatic bacteriuria/funguria/pyuria without UTI symptoms usually do not require treatment with an antimicrobial agent. [facility] IN URINE Ordering Provi kasie: MALINA BURK BY TEST Report Released Date/Time: Dec 25, 2020 10:29 AM STRIP Reporting Lab: [facility] [address] [place] [address] Performing Lab: [facility] [address] [place] [address] URINALYS NITRITE Neg 12/22 Specimen Type: URINE [facility] IS [PRESENCE] /2021 Comment: Pat ients with asymptomatic bacteriuria/funguria/pyuria without UTI symptoms usually do not require treatment with an antimicrobial agent. [facility] IN URINE Ordering Provi kasie: MALINA BURK BY TEST Report Released Date/Time: Dec 25, 2020 10:29 AM STRIP Reporting Lab: [facility] [address] [place] [address] Performing Lab: [facility] [address] [place] [address] URINALYS LEUKOCYTE Trace 12/22 Specimen Type : URINE [facility] IS ESTERASE Comment: Patie nts with asymptomatic bacteriuria/funguria/pyuria without UTI symptoms usually do not require treatment with an antimicrobial agent. [facility] [PRESENCE] Ordering Pro vider: MALINA BURK IN URINE Report Release d Date/Time: Dec 25, 2020 10:29 AM BY TEST Reporting Lab: [facility] HCS STRIP [address] [place] [address] Performing Lab: [facility] [address] [place] [address] URINALYS MICROSCOPI YES 12/22 Specimen Typ e: URINE [facility] IS C Comment: Patien ts with asymptomatic bacteriuria/funguria/pyuria without UTI symptoms usually do not require treatment with an antimicrobial agent. [facility] OBSERVATIO Ordering Pro vider: MALINA BURK Report Released Date/Time: Dec 25, 2020 10:29 AM [IDENTIFIE Reporting La b: [facility] R] IN [address] [place] [address] URINE Performing Lab: [facility] HCS SEDIMENT [address] [place] [address] BY LIGHT MICROSCOPY HEMOGLOB HEMOGLOBIN 5.6 4.0 - 6.0 11/05 Specimen T ype: BLOOD [place] IN A1C A1C/HEMOGL /2021 Comment: Tar get A1C values should be individualized. Better understanding of A1C test result accuracy is essential if clinicians are to interpret results for Veterans, and discuss treatment options thr [facility] OBIN.TOTAL ough the proc ess of Shared Decision Making. Providers may contact the Laboratory for performance characteristics of this assay. IN BLOOD Ordering Provi kasie: AUGUSTINE ENRIQUEZ Report Released Date/Time: Nov 05, 2021 08:42 AM Reporting Lab: [facility] [address] [place] [address] Performing Lab: [facility] [address] [place] [address] LIPID CHOLESTERO 128 11/05 Specimen Type : PLASMA [place] PROFILE, L Comment: OSVALDO STEROL comments: Desirable: <200 mg/dL Borderline High: 200-239 mg/dL High: >=240 mg/dL HDL comments: <40 mg/dL: Low HDL-cholesterol (major risk factor for CHD) & [facility] NON-FAST [MASS/VOLU gt;= 60 mg/d L: High HDL-Cholesterol (Negative risk factor for CHD) LDL comments: <100 mg/dL Optimal 100-129 mg/dL Near or above optimal 130-159 mg/dL Borderline high 160-189 mg/dL Hig ING ME] IN h >= 190 mg/dL V elenita High VLDL is not accurate when the trig >400 mg/dl: result not reported Glucose reference range is based on fasting specimen. Estimated Glomerular Filtration Rate (eGFR SERUM OR ) calculated us ing the 2020 Chronic Kidney Disease-Epidemiology (CKD-EPI) Collaboration creatinine equation; units of measure are mL/min/1.73 m2. PLASMA Ordering Provid er: AUGUSTINE ENRIQUEZ Report Released Date/Time: Nov 05, 2021 08:42 AM Reporting Lab: [facility] [address] [place] [address] Performing Lab: [facility] [address] [place] [address] LIPID TRIGLYCERI 59 0 - 150 11/05 Specimen Type : PLASMA [place] PROFILE, [place] Comment: OSVALDO STEROL comments: Desirable: <200 mg/dL Borderline High: 200-239 mg/dL High: >=240 mg/dL HDL comments: <40 mg/dL: Low HDL-cholesterol (major risk factor for CHD) & [facility] NON-FAST [MASS/VOLU gt;= 60 mg/d L: High HDL-Cholesterol (Negative risk factor for CHD) LDL comments: <100 mg/dL Optimal 100-129 mg/dL Near or above optimal 130-159 mg/dL Borderline high 160-189 mg/dL Hig ING ME] IN h >= 190 mg/dL V elenita High VLDL is not accurate when the trig >400 mg/dl: result not reported Glucose reference range is based on fasting specimen. Estimated Glomerular Filtration Rate (eGFR SERUM OR ) calculated us ing the 2020 Chronic Kidney Disease-Epidemiology (CKD-EPI) Collaboration creatinine equation; units of measure are mL/min/1.73 m2. PLASMA Ordering Provid er: AUGUSTINE ENRIQUEZ Report Released Date/Time: Nov 05, 2021 08:42 AM Reporting Lab: [facility] [address] [facility] [address] Performing Lab: [facility] [address] [facility] [address] LIPID CHOLESTERO 59 11/05 Specimen Type : PLASMA [place] PROFILE, L IN /2021 Comment: CHOL ESTEROL comments: Desirable: <200 mg/dL Borderline High: 200-239 mg/dL High: >=240 mg/dL HDL comments: <40 mg/dL: Low HDL-cholesterol (major risk factor for CHD) & [facility] NON-FAST [MASS/VOLU gt;= 60 mg/d L: High HDL-Cholesterol (Negative risk factor for CHD) LDL comments: <100 mg/dL Optimal 100-129 mg/dL Near or above optimal 130-159 mg/dL Borderline high 160-189 mg/dL Hig ING ME] IN h >= 190 mg/dL V elenita High VLDL is not accurate when the trig >400 mg/dl: result not reported Glucose reference range is based on fasting specimen. Estimated Glomerular Filtration Rate (eGFR SERUM OR ) calculated us ing the 2020 Chronic Kidney Disease-Epidemiology (CKD-EPI) Collaboration creatinine equation; units of measure are mL/min/1.73 m2. PLASMA Ordering Provid er: AUGUSTINE ENRIQUEZ Report Released Date/Time: Nov 05, 2021 08:42 AM Reporting Lab: [address] [address] Performing Lab: [address] [address] LIPID CHOLESTERO 61 11/05 Specimen Type : PLASMA [place] PROFILE, L IN LDL /2021 Comment: CHOL ESTEROL comments: Desirable: <200 mg/dL Borderline High: 200-239 mg/dL High: >=240 mg/dL HDL comments: <40 mg/dL: Low HDL-cholesterol (major risk factor for CHD) & [facility] [MASS/VOLU gt;= 60 mg/d L: High HDL-Cholesterol (Negative risk factor for CHD) LDL comments: <100 mg/dL Optimal 100-129 mg/dL Near or above optimal 130-159 mg/dL Borderline high 160-189 mg/dL Hig ING ME] IN h >= 190 mg/dL V elenita High VLDL is not accurate when the trig >400 mg/dl: result not reported Glucose reference range is based on fasting specimen. Estimated Glomerular Filtration Rate (eGFR SERUM OR ) calculated us ing the 2020 Chronic Kidney Disease-Epidemiology (CKD-EPI) Collaboration creatinine equation; units of measure are mL/min/1.73 m2. PLASMA BY Ordering Prov ider: AUGUSTINE ENRIQUEZ DIRECT Report Released Date/Time: Nov 05, 2021 08:42 AM ASSAY Reporting Lab: [address] [address] Performing Lab: [address] [address] LIPID CHOLESTERO 12 5 - 40 11/05 Specimen Type : PLASMA [place] PROFILE, L IN VLDL /2021 Comment: CHO LESTEROL comments: Desirable: <200 mg/dL Borderline High: 200-239 mg/dL High: >=240 mg/dL HDL comments: <40 mg/dL: Low HDL-cholesterol (major risk factor for CHD) & [facility] [MASS/VOLU gt;= 60 mg/d L: High HDL-Cholesterol (Negative risk factor for CHD) LDL comments: <100 mg/dL Optimal 100-129 mg/dL Near or above optimal 130-159 mg/dL Borderline high 160-189 mg/dL Hig ING ME] IN h >= 190 mg/dL V elenita High VLDL is not accurate when the trig >400 mg/dl: result not reported Glucose reference range is based on fasting specimen. Estimated Glomerular Filtration Rate (eGFR SERUM OR ) calculated us ing the 2020 Chronic Kidney Disease-Epidemiology (CKD-EPI) Collaboration creatinine equation; units of measure are mL/min/1.73 m2. PLASMA BY Ordering Prov ider: AUGUSTINE ENRIQUEZ CALCULATIO Report Relea sed Date/Time: Nov 05, 2021 08:42 AM N Reporting Lab: [facility] [address] [place] [address] Performing Lab: [facility] [address] [place] [address] CHEM7 CREATININE 1.0 0.7 - 1.2 11/05 Specimen Ty pe: PLASMA [place] [MASS/VOLU /2021 Comment: CHO LESTEROL comments: Desirable: <200 mg/dL Borderline High: 200-239 mg/dL High: >=240 mg/dL HDL comments: <40 mg/dL: Low HDL-cholesterol (major risk factor for CHD) & [facility] ME] IN gt;= 60 mg/dL: H igh HDL-Cholesterol (Negative risk factor for CHD) LDL comments: <100 mg/dL Optimal 100-129 mg/dL Near or above optimal 130- 159 mg/dL Borderline high 160-189 mg/dL Hig SERUM OR h >= 190 mg/dL Very High VLDL is not accurate when the trig >400 mg/dl: result not reported Glucose reference range is based on fasting specimen. Estimated Glomerular Filtration Rate (eGFR PLASMA ) calculated usi ng the 2020 Chronic Kidney Disease-Epidemiology (CKD-EPI) Collaboration creatinine equation; units of measure are mL/min/1.73 m2. Ordering Provid er: AUGUSTINE ENRIQUEZ Report Released Date/Time: Nov 05, 2021 08:42 AM Reporting Lab: [facility] [address] [place] [address] Performing Lab: [facility] [address] [place] [address] CHEM7 UREA 15 - 11/05 Specimen Type: P LASMA [place] NITROGEN /2021 Comment: OSVALDO STEROL comments: Desirable: <200 mg/dL Borderline High: 200-239 mg/dL High: >=240 mg/dL HDL comments: <40 mg/dL: Low HDL-cholesterol (major risk factor for CHD) & [facility] [MASS/VOLU gt;= 60 mg/dL : High HDL-Cholesterol (Negative risk factor for CHD) LDL comments: <100 mg/dL Optimal 100-129 mg/dL Near or above optimal 130- 159 mg/dL Borderline high 160-189 mg/dL Hig ME] IN h >= 190 mg/dL V elenita High VLDL is not accurate when the trig >400 mg/dl: result not reported Glucose reference range is based on fasting specimen. Estimated Glomerular Filtration Rate (eGFR SERUM OR ) calculated us ing the 2020 Chronic Kidney Disease-Epidemiology (CKD-EPI) Collaboration creatinine equation; units of measure are mL/min/1.73 m2. PLASMA Ordering Provid er: AUGUSTINE ENRIQUEZ Report Released Date/Time: Nov 05, 2021 08:42 AM Reporting Lab: [facility] [address] [place] [address] Performing Lab: [facility] [address] [place] [address] CHEM7 GLUCOSE 108 74 - 109 11/05 Specimen Type: PLASMA NENANA [MASS/VOLU /2021 Comment: CHO LESTEROL comments: Desirable: <200 mg/dL Borderline High: 200-239 mg/dL High: >=240 mg/dL HDL comments: <40 mg/dL: Low HDL-cholesterol (major risk factor for CHD) [facility]] IN gt;= 60 mg/dL: H igh HDL-Cholesterol (Negative risk factor for CHD) LDL comments: <100 mg/dL Optimal 100-129 mg/dL Near or above optimal 130- 159 mg/dL Borderline high 160-189 mg/dL Hig SERUM OR h >= 190 mg/dL Very High VLDL is not accurate when the trig >400 mg/dl: result not reported Glucose reference range is based on fasting specimen. Estimated Glomerular Filtration Rate (eGFR PLASMA ) calculated usi ng the 2020 Chronic Kidney Disease-Epidemiology (CKD-EPI) Collaboration creatinine equation; units of measure are mL/min/1.73 m2. Ordering Provid er: AUGUSTINE ENRIQUEZ Report Released Date/Time: Nov 05, 2021 08:42 AM Reporting Lab: [facility] [address] [facility] [address] Performing Lab: [facility] [address] [facility] [address] CHEM7 SODIUM 140 136 - 145 11/05 Specimen Type: PLASMA NENANA [MOLES/ /2021 Comment: GENEVA VANEGAS comments: Desirable: <200 mg/dL Borderline High: 200-239 mg/dL High: >=240 mg/dL HDL comments: <40 mg/dL: Low HDL-cholesterol (major risk factor for CHD) & [facility]] IN gt;= 60 mg/dL: H igh HDL-Cholesterol (Negative risk factor for CHD) LDL comments: <100 mg/dL Optimal 100-129 mg/dL Near or above optimal 130- 159 mg/dL Borderline high 160-189 mg/dL Hig SERUM OR h >= 190 mg/dL Very High VLDL is not accurate when the trig >400 mg/dl: result not reported Glucose reference range is based on fasting specimen. Estimated Glomerular Filtration Rate (eGFR PLASMA ) calculated usi ng the 2020 Chronic Kidney Disease-Epidemiology (CKD-EPI) Collaboration creatinine equation; units of measure are mL/min/1.73 m2. Ordering Provid er: AUGUSTINE ENRIQUEZ Report Released Date/Time: Nov 05, 2021 08:42 AM Reporting Lab: [facility] [address] [facility] [address] Performing Lab: [facility] [address] [facility] [address] CHEM7 POTASSIUM 4.0 3.5 - 5.0 11/05 Specimen Typ e: PLASMA NENANA [/ /2021 Comment: GENEVA VANEGAS comments: Desirable: <200 mg/dL Borderline High: 200-239 mg/dL High: >=240 mg/dL HDL comments: <40 mg/dL: Low HDL-cholesterol (major risk factor for CHD) [facility]] IN gt;= 60 mg/dL: H igh HDL-Cholesterol (Negative risk factor for CHD) LDL comments: <100 mg/dL Optimal 100-129 mg/dL Near or above optimal 130- 159 mg/dL Borderline high 160-189 mg/dL Hig SERUM OR h >= 190 mg/dL Very High VLDL is not accurate when the trig >400 mg/dl: result not reported Glucose reference range is based on fasting specimen. Estimated Glomerular Filtration Rate (eGFR PLASMA ) calculated usi ng the 2020 Chronic Kidney Disease-Epidemiology (CKD-EPI) Collaboration creatinine equation; units of measure are mL/min/1.73 m2. Ordering Provid er: AUGUSTINE ENRIQUEZ Report Released Date/Time: Nov 05, 2021 08:42 AM Reporting Lab: [facility] [address] [facility] [place] [address] Performing Lab: [facility] [address] [facility] [address] CHEM7 CHLORIDE 107 98 - 107 11/05 Specimen Type: PLASMA NENANA [MOLES/VOL /2021 Comment: CHO LESTEROL comments: Desirable: <200 mg/dL Borderline High: 200-239 mg/dL High: >=240 mg/dL HDL comments: <40 mg/dL: Low HDL-cholesterol (major risk factor for CHD) [facility]] IN gt;= 60 mg/dL: H igh HDL-Cholesterol (Negative risk factor for CHD) LDL comments: <100 mg/dL Optimal 100-129 mg/dL Near or above optimal 130- 159 mg/dL Borderline high 160-189 mg/dL Hig SERUM OR h >= 190 mg/dL Very High VLDL is not accurate when the trig >400 mg/dl: result not reported Glucose reference range is based on fasting specimen. Estimated Glomerular Filtration Rate (eGFR PLASMA ) calculated usi ng the 2020 Chronic Kidney Disease-Epidemiology (CKD-EPI) Collaboration creatinine equation; units of measure are mL/min/1.73 m2. Ordering Provid er: AUGUSTINE ENRIQUEZ Report Released Date/Time: Nov 05, 2021 08:42 AM Reporting Lab: [facility] [address] [facility] [place] [address] Performing Lab: [facility] [address] [facility] [address] [facility] [address] CHEM7 CARBON 21 - 11/05 L Specimen Type: P LASMA NENANA DIOXIDE, /2021 Comment: OSVALDO STEROL comments: Desirable: <200 mg/dL Borderline High: 200-239 mg/dL High: >=240 mg/dL HDL comments: <40 mg/dL: Low HDL-cholesterol (major risk factor for CHD) [facility] TOTAL gt;= 60 mg/dL: H igh HDL-Cholesterol (Negative risk factor for CHD) LDL comments: <100 mg/dL Optimal 100-129 mg/dL Near or above optimal 130-159 mg/dL Borderline high 160-189 mg/dL Hig [MOLES/VOL h >= 190 mg/d L Very High VLDL is not accurate when the trig >400 mg/dl: result not reported Glucose reference range is based on fasting specimen. Estimated Glomerular Filtration Rate (eGFR UME] IN ) calculated usi ng the 2020 Chronic Kidney Disease-Epidemiology (CKD-EPI) Collaboration creatinine equation; units of measure are mL/min/1.73 m2. SERUM OR Ordering Provi kasie: AUGUSTINE ENRIQUEZ PLASMA Report Released Date/Time: Nov 05, 2021 08:42 AM Reporting Lab: [facility] [address] [facility] [address] Performing Lab: [facility] [address] [facility] [address] CHEM7 GLOMERULAR 79.0 60 11/05 Specimen Type : PLASMA NENANA /2021 Comment: CHO LESTEROL comments: Desirable: <200 mg/dL Borderline High: 200-239 mg/dL High: >=240 mg/dL HDL comments: <40 mg/dL: Low HDL-cholesterol (major risk factor for CHD) & [facility] RATE/1.73 gt;= 60 mg/dL: High HDL-Cholesterol (Negative risk factor for CHD) LDL comments: <100 mg/dL Optimal 100-129 mg/dL Near or above optimal 130- 159 mg/dL Borderline high 160-189 mg/dL Hig SQ h >= 190 mg/dL V elenita High VLDL is not accurate when the trig >400 mg/dl: result not reported Glucose reference range is based on fasting specimen. Estimated Glomerular Filtration Rate (eGFR M.PREDICTE ) calculated using the 2020 Chronic Kidney Disease-Epidemiology (CKD-EPI) Collaboration creatinine equation; units of measure are mL/min/1.73 m2. D [VOLUME Ordering Prov ider: AUGUSTINE ENRIQUEZ RATE/AREA] Report Relea sed Date/Time: Nov 05, 2021 08:42 AM IN SERUM Reporting Lab: [facility] OR PLASMA [address] [facility] [address] BY Performing Lab: [facility] CREATININE [address] [facility] [address] -BASED FORMULA (MDRD) CBC+DIFF LEUKOCYTES 5.7 4.8 - 10.8 11/05 Specimen Type: BLOOD NENANA [#/VOLUME] /2021 No comment en tered. [facility] IN BLOOD Ordering Provi kasie: AUGUSTINE ENRIQUEZ BY Report Released Date/Time: Nov 05, 2021 08:42 AM AUTOMATED Reporting Lab : [facility] COUNT [address] [place] [address] Performing Lab: [facility] [address] [place] [address] CBC+DIFF ERYTHROCYT 4.79 4.5 - 6.1 11/05 Specimen T ype: BLOOD NENANA ES No comment enter ed. [facility] [#/VOLUME] Ordering Pro vider: AUGUSTINE ENRIQUEZ IN BLOOD Report Release d Date/Time: Nov 05, 2021 08:42 AM BY Reporting Lab: [facility] AUTOMATED [address] [place] [address] COUNT Performing Lab: [facility] [address] [place] [address] CBC+DIFF HEMOGLOBIN 15.3 13.5 - 11/05 Specimen Typ e: BLOOD NENANA [MASS/VOLU 17.5 /2021 No comment en tered. [facility] ME] IN Ordering Provid er: AUGUSTINE ENRIQUEZ BLOOD Report Released Date/Time: Nov 05, 2021 08:42 AM Reporting Lab: [facility] [address] [place] [address] Performing Lab: [facility] [address] [place] [address] CBC+DIFF HEMATOCRIT 44 42 - 52 11/05 Specimen Typ e: BLOOD NENANA [VOLUME /2021 No comment enter ed. [facility] FRACTION] Ordering Prov ider: AUGUSTINE ENRIQUEZ OF BLOOD Report Release d Date/Time: Nov 05, 2021 08:42 AM BY Reporting Lab: [facility] AUTOMATED [address] [place] [address] COUNT Performing Lab: [facility] [address] [place] [address] CBC+DIFF MCV 92.7 80 - 100 11/05 Specimen Type: BLOOD NENANA [ENTITIC /2021 No comment ente red. [facility] VOLUME] BY Ordering Pro vider: AUGUSTINE ENRIQUEZ AUTOMATED Report Releas ed Date/Time: Nov 05, 2021 08:42 AM COUNT Reporting Lab: [facility] [address] [place] [address] Performing Lab: [facility] [address] [place] [address] CBC+DIFF MCH 31.9 27 - 31 08/03 H Specimen Type: BLOOD NENANA [ENTITIC /2021 No comment ente red. [facility] MASS] BY Ordering Provi kasie: AUGUSTINE ENRIQUEZ AUTOMATED Report Releas ed Date/Time: Nov 05, 2021 08:42 AM COUNT Reporting Lab: [facility] [address] [place] [address] Performing Lab: [facility] [address] [place] [address] CBC+DIFF MCHC 34.5 33 - 37 08/ Specimen Type: BLOOD NENANA [MASS/VOLU /2021 No comment en tered. [facility] ME] BY Ordering Provid er: AUGUSTINE ENRIQUEZ AUTOMATED Report Releas ed Date/Time: Nov 05, 2021 08:42 AM COUNT Reporting Lab: [facility] [address] [place] [address] Performing Lab: [facility] [address] [place] [address] CBC+DIFF PLATELETS 200 150 - 450 08 Specimen Ty pe: BLOOD NENANA [#/VOLUME] /2021 No comment en tered. [facility] IN BLOOD Ordering Provi kasie: AUGUSTINE ENRIQUEZ BY Report Released Date/Time: Nov 05, 2021 08:42 AM AUTOMATED Reporting Lab : [facility] COUNT [address] [place] [address] Performing Lab: [facility] [address] [place] [address] CBC+DIFF PLATELET 10.5 7.4 - 10.4 08 H Specimen Ty pe: BLOOD NENANA MEAN /2021 No comment enter ed. [facility] VOLUME Ordering Provid er: AUGUSTINE ENRIQUEZ [ENTITIC Report Release d Date/Time: Nov 05, 2021 08:42 AM VOLUME] IN Reporting La b: [facility] BLOOD BY [address] [place] [address] AUTOMATED Performing La b: [facility] COUNT [address] [place] [address] CBC+DIFF ERYTHROCYT 42.0 36.0 - 08/ Specimen Typ e: BLOOD NENANA E 47.0 /2021 No comment enter ed. [facility] DISTRIBUTI Ordering Pro vider: RIMA ENRIQUEZA A ON WIDTH Report Release d Date/Time: Nov 05, 2021 08:42 AM [RATIO] BY Reporting La b: [facility] AUTOMATED [address] [place] [address] COUNT Performing Lab: [facility] [address] [place] [address] CBC+DIFF EOSINOPHIL 3.9 08/ Specimen Typ e: BLOOD NENANA S/ No comment enter ed. [facility] LEUKOCYTES Ordering Pro vider: RIMA ENRIQUEZA A IN BLOOD Report Release d Date/Time: Nov 05, 2021 08:42 AM BY Reporting Lab: [facility] AUTOMATED [address] [place] [facility] [place] [place] [address] COUNT Performing Lab: [facility] [address] [place] [address] CBC+DIFF EOSINOPHIL 0.2 0 - 0.5 11/05 Specimen Typ e: BLOOD NENANA S No comment enter ed. [facility] [#/VOLUME] Ordering Pro vider: RIMA ENRIQUEZA A IN BLOOD Report Release d Date/Time: Nov 05, 2021 08:42 AM BY Reporting Lab: [facility] AUTOMATED [address] [place] [facility] [place] [place] [address] COUNT Performing Lab: [facility] [address] [place] [address] CBC+DIFF BASOPHILS/ 0.7 08/ Specimen Typ e: BLOOD NENANA No comment enter ed. [facility] LEUKOCYTES Ordering Pro vider: RIMA ENRIQUEZA A IN BLOOD Report Release d Date/Time: Nov 05, 2021 08:42 AM BY Reporting Lab: [facility] AUTOMATED [address] [place] [address] COUNT Performing Lab: [facility] [address] [place] [address] CBC+DIFF BASOPHILS 0.0 0 - 0.2 08/03 Specimen Type : BLOOD NENANA [#/VOLUME] /2021 No comment en tered. [facility] IN BLOOD Ordering Provi kasie: AUGUSTINE ENRIQUEZ A BY Report Released Date/Time: Nov 05, 2021 08:42 AM AUTOMATED Reporting Lab : [facility] COUNT [address] [place] [address] Performing Lab: [facility] [address] [place] [address] CBC+DIFF NEUTROPHIL 59.5 11/05 Specimen Typ e: BLOOD NENANA S/ No comment enter ed. [facility] LEUKOCYTES Ordering Pro vider: RIMA ENRIQUEZA A IN BLOOD Report Release d Date/Time: Nov 05, 2021 08:42 AM BY Reporting Lab: [facility] AUTOMATED [address] [place] [address] COUNT Performing Lab: [facility] [address] [place] [address] CBC+DIFF NEUTROPHIL 3.4 2 - 8 11/05 Specimen Typ e: BLOOD NENANA No comment enter ed. [facility] [#/VOLUME] Ordering Pro vider: RIMA ENRIQUEZA A IN BLOOD Report Release d Date/Time: Nov 05, 2021 08:42 AM BY Reporting Lab: [facility] AUTOMATED [address] [place] [address] COUNT Performing Lab: [facility] [address] [place] [address] CBC+DIFF LYMPHOCYTE 29.4 11/05 Specimen Typ e: BLOOD NENANA S/ No comment enter ed. [facility] LEUKOCYTES Ordering Pro vider: RIMA ENRIQUEZA A IN BLOOD Report Release d Date/Time: Nov 05, 2021 08:42 AM BY Reporting Lab: [facility] AUTOMATED [address] [place] [address] COUNT Performing Lab: [facility] [address] [place] [address] CBC+DIFF LYMPHOCYTE 1.7 1 - 4 11/05 Specimen Typ e: BLOOD NENANA No comment enter ed. [facility] [#/VOLUME] Ordering Pro vider: RIMA ENRIQUEZA A IN BLOOD Report Release d Date/Time: Nov 05, 2021 08:42 AM BY Reporting Lab: [facility] AUTOMATED [address] [place] [address] COUNT Performing Lab: [facility] [address] [place] [address] CBC+DIFF MONOCYTES/ 6.1 11/05 Specimen Typ e: BLOOD NENANA 100 /2021 No comment enter ed. [facility] LEUKOCYTES Ordering Pro vider: AUGUSTINE ENRIQUEZ IN BLOOD Report Release d Date/Time: Nov 05, 2021 08:42 AM BY Reporting Lab: [facility] AUTOMATED [address] [place] [address] COUNT Performing Lab: [facility] [address] [place] [address] CBC+DIFF MONOCYTES 0.4 0 - 0.6 11/05 Specimen Type : BLOOD NENANA [#/VOLUME] /2021 No comment en tered. [facility] IN BLOOD Ordering Provi kasie: AUGUSTINE ENRIQUEZ BY Report Released Date/Time: Nov 05, 2021 08:42 AM AUTOMATED Reporting Lab : [facility] COUNT [address] [place] [address] Performing Lab: [facility] [address] [place] [address] CBC+DIFF IMMATURE 0.4 11/05 Specimen Type: BLOOD NENANA GRANULOCYT /2021 No comment en tered. [facility] ES/100 Ordering Provid er: AUGUSTINE ENRIQUEZ LEUKOCYTES Report Relea sed Date/Time: Nov 05, 2021 08:42 AM IN BLOOD Reporting Lab: [facility] BY [address] [place] [address] AUTOMATED Performing La b: [facility] COUNT [address] [place] [address] CBC+DIFF IMMATURE 0.0 0 - 0.07 11/05 Specimen Type : BLOOD NENANA GRANULOCYT /2021 No comment en tered. [facility] ES Ordering Provid er: AUGUSTINE ENRIQUEZ [#/VOLUME] Report Relea sed Date/Time: Nov 05, 2021 08:42 AM IN BLOOD Reporting Lab: [facility] BY [address] [place] [address] AUTOMATED Performing La b: [facility] COUNT [address] [place] [address] CBC+DIFF NUCLEATED 0.0 0 - 0.13 11/05 Specimen Typ e: BLOOD NENANA ERYTHROCYT /2021 No comment en tered. [facility] ES/100 Ordering Provid er: AUGUSTINE ENRIQUEZ LEUKOCYTES Report Relea sed Date/Time: Nov 05, 2021 08:42 AM [RATIO] IN Reporting La b: [facility] BLOOD BY [address] [facility] [address] AUTOMATED Performing La b: [facility] COUNT [address] [place] [address] COVID-19 SARS-COV-2 Negative 03/04 Specimen Ty pe: NASOPHARYNX [facility] DIAGNOST (COVID-19) /2020 Comment: Myriam domínguez ([phone]) This is an emergency use authorized test. Testing performed on the [employer] MDX PCR instrument. [facility] IC PANEL RNA Ordering Provi kasie: ALLYSSA RIZVI (DIASORI [PRESENCE] Report Rele ased Date/Time: Mar 03, 2021 02:07 PM N) IN Reporting Lab: [facility] RESPIRATOR [address] [facility] [address] Y SPECIMEN Performing L ab: [facility] BY RAJENDRA [address] [facility] [address] WITH PROBE DETECTION PROSTATE PROSTATE 2.62 0 - 4 12/11 Specimen Type: SERUM [facility] SPECIFIC SPECIFIC /2020 Comment: PSA comments: Finasteride and Dutasteride can cause a reduction in serum PSA by approximately 50%. Free PSA levels are not affected. Due to potential for Biotin interference, especially in [facility] ANTIGEN [employer] ients taking bio tin in doses of thousands of micrograms/day, the following bias may be seen: Positive: B12, Folate, FT4, Vit D, Testosterone Negative: CEA, PTH, BNP, PSA, HCG, Troponin, HIV, HCV, AHBs, HbsAG [MASS/VOLU Ordering Pro vider: MALINA BURK] IN Report Released Date/Time: Dec 25, 2019 10:53 AM SERUM OR Reporting Lab: [facility] PLASMA [address] [facility] [address] Performing Lab: [facility] [address] [facility] [address] URINALYS SPECIFIC 1.013 1.000 - 12/11 Specimen Type: URINE [facility] IS GRAVITY OF 1.030 /2020 Comment: Pat ients with asymptomatic bacteriuria/funguria/pyuria without UTI symptoms usually do not require treatment with an antimicrobial agent. [facility] URINE Ordering Provid er: MALINA BURK Report Released Date/Time: Dec 25, 2019 10:53 AM Reporting Lab: [facility] [address] [facility] [address] Performing Lab: [facility] [address] [facility] [address] URINALYS KETONES Neg 12/11 Specimen Type: URINE [facility] IS [PRESENCE] /2020 Comment: Pat ients with asymptomatic bacteriuria/funguria/pyuria without UTI symptoms usually do not require treatment with an antimicrobial agent. [facility] IN URINE Ordering Provi kasie: MALINA BURK Report Released Date/Time: Dec 25, 2019 10:53 AM Reporting Lab: [facility] [address] [facility] [address] Performing Lab: [facility] [address] [facility] [address] URINALYS GLUCOSE Neg 12/11 Specimen Type: URINE [facility] IS [MASS/VOLU /2020 Comment: Pat ients with asymptomatic bacteriuria/funguria/pyuria without UTI symptoms usually do not require treatment with an antimicrobial agent. [facility]] IN Ordering Provid er: MALINA BURK URINE BY Report Release d Date/Time: Dec 25, 2019 10:53 AM TEST STRIP Reporting La b: [facility] [address] [facility] [address] Performing Lab: [facility] [address] [facility] [address] URINALYS PROTEIN Neg 12/11 Specimen Type: URINE [facility] IS [MASS/VOLU /2020 Comment: Pat ients with asymptomatic bacteriuria/funguria/pyuria without UTI symptoms usually do not require treatment with an antimicrobial agent. [facility]] IN Ordering Provid er: MALINA BURK URINE BY Report Release d Date/Time: Dec 25, 2019 10:53 AM TEST STRIP Reporting La b: [facility] [address] [facility] [address] Performing Lab: [facility] [address] [facility] [address] URINALYS PH OF 5.5 5.0 - 8.0 12/11 Specimen Type : URINE [facility] IS URINE BY /2020 Comment: Patie nts with asymptomatic bacteriuria/funguria/pyuria without UTI symptoms usually do not require treatment with an antimicrobial agent. [facility] TEST STRIP Ordering Pro vider: MALINA BURK Report Released Date/Time: Dec 25, 2019 10:53 AM Reporting Lab: [facility] [address] [facility] [address] Performing Lab: [facility] [address] [facility] [address] URINALYS HEMOGLOBIN Neg 12/11 Specimen Typ e: URINE [facility] IS [PRESENCE] /2020 Comment: Pat ients with asymptomatic bacteriuria/funguria/pyuria without UTI symptoms usually do not require treatment with an antimicrobial agent. [facility] IN URINE Ordering Provi kasie: MALINA BURK BY TEST Report Released Date/Time: Dec 25, 2019 10:53 AM STRIP Reporting Lab: [facility] [address] [facility] [address] Performing Lab: [facility] [address] [facility] [address] URINALYS NITRITE Neg 12/11 Specimen Type: URINE [facility] IS [PRESENCE] /2020 Comment: Pat ients with asymptomatic bacteriuria/funguria/pyuria without UTI symptoms usually do not require treatment with an antimicrobial agent. [facility] IN URINE Ordering Provi kasie: MALINA BURK BY TEST Report Released Date/Time: Dec 25, 2019 10:53 AM STRIP Reporting Lab: [facility] [address] [facility] [address] Performing Lab: [facility] [address] [facility] [address] URINALYS LEUKOCYTE Neg 12/11 Specimen Type : URINE [facility] IS ESTERASE Comment: Patie nts with asymptomatic bacteriuria/funguria/pyuria without UTI symptoms usually do not require treatment with an antimicrobial agent. [facility] [PRESENCE] Ordering Pro vider: MALINA BURK IN URINE Report Release d Date/Time: Dec 25, 2019 10:53 AM BY TEST Reporting Lab: [facility] STRIP [address] [facility] [address] Performing Lab: [facility] [address] [facility] [address] CHEM7 CREATININE 1.1 0.7 - 1.2 12/11 Specimen Ty pe: PLASMA NENANA [MASS/VOLU /2020 Comment: Non -Fasting Reference range is based on fasting specimen. eGFR results >60 are somewhat imprecise. Chronic Kidney Disease less than 60 ml/min/1.73 m2. Kidney failure less than 15 ml/min/1.[address] [facility]] IN Ordering Provid er: AUGUSTINE ENRIQUEZ SERUM OR Report Release d Date/Time: Dec 11, 2020 02:11 PM PLASMA Reporting Lab: [address] [address] Performing Lab: [address] [address] CHEM7 UREA 15 8 - 12/11 Specimen Type: P LASMA NENANA NITROGEN /2020 Comment: Non-F asting Reference range is based on fasting specimen. eGFR results >60 are somewhat imprecise. Chronic Kidney Disease less than 60 ml/min/1.73 m2. Kidney failure less than 15 ml/min/1.73 m2. [facility] [MASS/VOLU Ordering Pro vider: AUGUSTINE ENRIQUEZ ID] IN Report Released Date/Time: Dec 11, 2020 02:11 PM SERUM OR Reporting Lab: [facility] PLASMA [address] [place] [address] Performing Lab: [address] [address] CHEM7 GLUCOSE 100 74 - 109 12/11 Specimen Type: PLASMA NENANA [MASS/VOLU /2020 Comment: Non -Fasting Reference range is based on fasting specimen. eGFR results >60 are somewhat imprecise. Chronic Kidney Disease less than 60 ml/min/1.73 m2. Kidney failure less than 15 ml/min/1.[address] [facility]] IN Ordering Provid er: AUGUSTINE ENRIQUEZ SERUM OR Report Release d Date/Time: Dec 11, 2020 02:11 PM PLASMA Reporting Lab: [address] [address] Performing Lab: [address] [address] CHEM7 SODIUM 136 136 - 145 12/11 Specimen Type: PLASMA NENANA [MOLES/VOL /2020 Comment: Non -Fasting Reference range is based on fasting specimen. eGFR results >60 are somewhat imprecise. Chronic Kidney Disease less than 60 ml/min/1.73 m2. Kidney failure less than 15 ml/min/1.73 m2. [facility] UME] IN Ordering Provid er: MINAAUGUSTINE VARELA Judit SERUM OR Report Release d Date/Time: Dec 11, 2020 02:11 PM PLASMA Reporting Lab: [address] [address] Performing Lab: [address] [address] CHEM7 POTASSIUM 4.1 3.5 - 5.0 12/11 Specimen Typ e: PLASMA NENANA [MOLES/VOL /2020 Comment: Non -Fasting Reference range is based on fasting specimen. eGFR results >60 are somewhat imprecise. Chronic Kidney Disease less than 60 ml/min/1.73 m2. Kidney failure less than 15 ml/min/1.73 m2. [facility] UME] IN Ordering Provid er: AUGUSTINE ENRIQUEZ SERUM OR Report Release d Date/Time: Dec 11, 2020 02:11 PM PLASMA Reporting Lab: [address] [address] Performing Lab: [address] [address] [address] CHEM7 CHLORIDE 100 98 - 107 12/11 Specimen Type: PLASMA NENANA [MOLES/VOL /2020 Comment: Non -Fasting Reference range is based on fasting specimen. eGFR results >60 are somewhat imprecise. Chronic Kidney Disease less than 60 ml/min/1.73 m2. Kidney failure less than 15 ml/min/1.73 m2. [facility] UME] IN Ordering Provid er: AUGUSTINE ENRIQUEZ SERUM OR Report Release d Date/Time: Dec 11, 2020 02:11 PM PLASMA Reporting Lab: [address] [address] Performing Lab: [address] [address] CHEM7 CARBON 23 22 - 29 12/11 Specimen Type: P LASMA NENANA DIOXIDE Comment: Non-F asting Reference range is based on fasting specimen. eGFR results >60 are somewhat imprecise. Chronic Kidney Disease less than 60 ml/min/1.73 m2. Kidney failure less than 15 ml/min/1.73 m2. [facility] TOTAL Ordering Provid er: AUGUSTINE ENRIQUEZ [MOLES/VOL Report Relea sed Date/Time: Dec 11, 2020 02:11 PM UME] IN Reporting Lab: [facility] [place] [address] [address] PLASMA Performing Lab: [facility] [address] [address] CHEM7 GLOMERULAR >60.0 60 12/11 Specimen Type : PLASMA NENANA Comment: Non -Fasting Reference range is based on fasting specimen. eGFR results >60 are somewhat imprecise. Chronic Kidney Disease less than 60 ml/min/1.73 m2. Kidney failure less than 15 ml/min/1.73 m2. [facility] RATE/1.73 Ordering Prov ider: AUGUSTINE ENRIQUEZ SQ Report Released Date/Time: Dec 11, 2020 02:11 PM M.PREDICTE Reporting La b: [facility] D [[address] [address] RATE/AREA] Performing L ab: [facility] IN SERUM [address] [address] OR PLASMA BY CREATININE -BASED FORMULA (MDRD) Vital Signs Combined list of inpatient and outpatient Vital Signs from Department of Defense and Veterans Affairs, ranging from 12 months to all on record, depending upon the facility. Vital Sign Value Date Comments Source PAIN 1 12/25/2021 10:51:00 [facility] PAIN 7 12/22/2021 11:02:21 [facility] SYSTOLIC BLOOD PRESSURE 117 11/05/2021 08:52:53 [facility] DIASTOLIC BLOOD PRESSURE 69 11/05/2021 08:52:53 [facility] PULSE OXIMETRY 95% 11/05/2021 08:52:53 [facility] WEIGHT 223.2 11/05/2021 08:52:53 [facility] BMI 30kg/m2 11/05/2021 08:52:53 [facility] PAIN 2 11/05/2021 08:52:53 [facility] HEIGHT 72.5 11/05/2021 08:52:53 [facility] TEMPERATURE 98.2 11/05/2021 08:52:53 [facility] PULSE 61 11/05/2021 08:52:53 [facility] RESPIRATION 20 11/05/2021 08:52:53 [facility] SYSTOLIC BLOOD PRESSURE 119 05/21/2021 14:09:06 [facility] DIASTOLIC BLOOD PRESSURE 69 05/21/2021 14:09:06 [facility] PULSE OXIMETRY 95% 05/21/2021 14:09:06 [facility] WEIGHT 220.4 05/21/2021 14:09:06 [facility] BMI 30kg/m2 05/21/2021 14:09:06 [facility] PAIN 4 05/21/2021 14:09:06 [facility] HEIGHT 72.5 05/21/2021 14:09:06 [facility] TEMPERATURE 98.4 05/21/2021 14:09:06 [facility] PULSE 70 05/21/2021 14:09:06 [facility] RESPIRATION 20 05/21/2021 14:09:06 [facility] Encounters Combined list of: 1) Encounters from Department of [facility] facilities going back up to the last 18 months. 2) Encounters from the Department of Defense facilities going back up to 280 months. Location Location Encounter Encounter Reason Attending ADM DC Stat us Disposition Source Details Type Number For Provider Date Date Visit Outpatient 42680-5.43 DREA GUTIÉRREZ 10/03 [place] Encounter [id number] RA MD HC S Outpatient 25040-5.43 10/22 TONY STO Encounter 7GK. [facility] 17 CLINIC Outpatient 06709-1.43 MIN[place],DEBR 10/24 [place] Encounter [id number] A [facility] 09 CLINIC TRIAMCINOL 65121-7.43 Diagnos MINA,DEBR 10/24 JAMESTO ONE ACET [id number] is: A [facility] INJ NOS 07 ICD-10- CLINIC CM Z00.01 Encount er for general adult medical exam w abnorma l finding s
w ith Provide r Comment s: Encount er for General Adult Medical Examina tion with Abnorma l Finding s Outpatient 21134-4.43 10/24 TONY STO Encounter [id number] [facility] Outpatient 85560-6.43 10/25 [place] [id number] [facility] 08937-9.43 10/30 T[place]Y STO Encounter [id number] [facility] Outpatient 14653-0.43 ANIBAL BARCLAY 11/22 [place] Encounter [id number] [facility] 48286-5.43 [place],DEBR 11/25 [place] [id number] [facility] 02287-6.43 12/02 [place] Encounter [id number] /[facility]21 [facility] 39004-4.43 12/04 [place] Encounter [id number] /2021 MD HC S HC PRO 40625-5.43 Diagnos DREA GUTIÉRREZ 12/06 [employer] PHONE CALL [id number] is: [facility] V A 11-20 MIN 35 ICD-10- CLINIC CM Z71.9 Motor Equipment Captain ing, unspeci fied
with Provide r Comment s: Motor Equipment Captain ing, unspeci fied Outpatient 29386-5.43 Jaky SPARKS 12/06 [place] Encounter [id number] [facility] 03757-7.43 12/07 [place] [facility] [id number] [facility] 78163-3.43 12/07 [place] Encounter [id number] [facility] 44976-8.43 Jaky SPARKS 12/10 [place] Encounter [id number] [facility] 17576-7.43 BHARGAV FLORES 12/10 [place] Encounter [id number] VINCE R [facility] Outpatient 69943-4.43 12/11 [place] Encounter [id number] [facility] 38790-4.43 12/11 TONY STO Encounter [id number] [facility] 12 CLINIC OFFICE O/P 34235-0.43 Diagnos MINA,DEBR 12/11 JAMESTO EST MOD [id number] is: A [facility] 30-39 MIN 12 ICD-10- CLINIC CM S27.1XX S Traumat ic hemotho rax, sequela
wi th Provide r Comment s: Traumat ic Hemotho rax, Sequela Outpatient 67161-5.43 TOY BURK 12/11 [place] Encounter [id number] CY R [facility]2020 [facility] 49161-7.43 12/11 [place] Encounter [id number] [facility] 52941-8.43 BROCK,DREA 12/12 [place] Encounter [id number] RA J /2020 [facility] 83130-0.43 12/17 [place] Encounter [id number] [facility] 28387-4.43 12/17 [place] Encounter [id number] [facility] 27358-1.43 12/18 [place] Encounter [id number] [facility] 69916-3.43 12/18 [place] Encounter [id number] [facility] 58398-0.43 DREA GUTIÉRREZ 12/23 [place] Encounter [id number] RA J /2020 [facility] 61258-1.43 Diagnos BURK,REG 12/25 [place] Encounter [id number] is: AN R /2020 [facility] ICD-10- CM N40.1 Benign prostat ic hyperpl wayne with lower urinary tract symp
with Provide r Comment s: Benign prostat ic hyperpl way[place] ([facility] [id number]) Outpatient 60081-1.43 01/15 [place] Encounter [id number] [facility] 30506-8.43 02/11 [place] Encounter [id number] [facility] 71997-2.43 02/24 [place] Encounter [id number] [facility] HC PRO 18701-5.43 Diagnos CARMITA DE 03/03 F KAREN PHONE CALL [id number] is: EEN C /2020 [facility] 5-10 MIN ICD-10- CM Z71.9 Motor Equipment Captain ing, unspeci fied
with Provide r Comment s: Motor Equipment Captain ing, unspeci fied Outpatient 92499-9.43 Diagnos STADUM,LIS 03/03 [place] Encounter [id number] is: A [facility] S ICD-10- CM J06.9 Acute upper respira tory infecti on, unspeci fied
with Provide r Comment s: Acute upper Respira tory Infecti on, unspeci fied Outpatient 93098-3.43 03/04 TONY STO Encounter [id number] [facility] 18 CLINIC HC PRO 92868-1.43 Diagnos PELAYIC,RA 03/05 F KAREN PHONE CALL [id number] is: [facility] 5-10 MIN ICD-10- CM Z71.9 Motor Equipment Captain ing, unspeci fied
with Provide r Comment s: Motor Equipment Captain ing, unspeci fied Outpatient 71247-2.43 Diagnos STADUM,LIS 03/05 [place] Encounter [id number] is: A [facility] S ICD-10- CM J06.9 Acute upper respira tory infecti on, unspeci fied
with Provide r Comment s: Acute upper Respira tory Infecti on, unspeci fied HC PRO 30450-1.43 Diagnos BROCK,DREA 03/12 J AMESTO PHONE CALL [id number] is: RA WN V A 5-10 MIN 48 ICD-10- CLINIC CM R68.89 Other general symptom s and signs<b r/>with Provide r Comment s: General Symptom s & Signs Outpatient 24757-6.43 04/07 [facility] O Encounter [id number] MD HC S Outpatient 65175-3.43 GUSSIAAS,M 04/15 [place] Encounter [id number] ONICA [facility] H[facility] Outpatient 49507-3.43 05/21 TONY STO Encounter [id number] [facility] 16 CLINIC OFFICE O/P 76222-6.43 Diagnos MINA,DEBR 05/21 JAMESTO EST LOW [id number] is: A [facility] 20-29 MIN 20 ICD-10- CLINIC CM M17.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
with Provide r Comment s: Unilate ral Primary Osteoar thritis , left Knee Outpatient 38199-8.43 05/21 [facility] [id number] [facility] 16341-3.43 08/19 [place] En[facility] [id number] [facility] 95020-2.43 09/23 [facility] ST[place] Encounter [id number] [facility] Outpatient 20922-6.43 10/23 [place] ST[place] Encounter [id number] [facility] Outpatient 79801-5.43 11/05 T[place] ST[place] Encounter [id number] [facility] OFFICE O/P 01889-2.43 Diagnos MINA,DEBR 11/05 [facility] EST MOD [id number] is: A A [facility] 30-39 MIN 77 ICD-10- CLINIC CM R73.01 Impaire d fasting glucose
wi Provide r Comment s: Impaire d fasting glucose (SCT [id number] 07) OFFICE O/P 08645-8.43 Diagnos [id number]: RA J /2021 [facility] MINIMAL 07 ICD-10- CLINIC PROB CM N39.0 Urinary tract infecti on, site not specifi ed
with Provide r Comment s: Urinary tract infecti on, site not specifi ed IMMUNIZATI 20170-9.43 Diagnos RAUSER,CAR 12/24 [facility] ON ADMIN [id number] is: LI N /2021 [facility] 48 ICD-10- CLINIC CM Z23 Encount er for immuniz ation<b r/>with Provide r Comment s: Encount er for Immuniz ation OFFICE O/P 71375-0.43 Diagnos BURK,REG 12/25 [place] EST MOD [id number] is: AN R /2021 [facility] 30-39 MIN ICD-10- CM N41.0 Acute prostat itis
with Provide r Comment s: Acute prostat itis Outpatient 08407-8.43 [place] 12/29 [place] Encounter [id number] ,TRISHA [facility] Outpatient 03559-8.43 [place] 12/30 [place] Encounter [id number] ,TRISHA /2021 [facility] RYANN Social History Combined list of available smoking, tobacco, and other social history [facility]. Social History Type Response Date Comment Source Tobacco smoking [facility] FORMER USER 11/05/2021 [facility] status NHIS History of tobacco VA-TOBACCO QUIT 15 YRS 11/05/2021 [facility] use OR MORE History of tobacco VA-TOBACCO FORMER USER 10/24/2020 [facility] use History of tobacco VA-TOBACCO FORMER USER 11/21/2019 [facility] use History of tobacco LIFETIME NON-TOBACCO 12/15/2017 [facility] use USER History of tobacco FORMER TOBACCO USE >1Y 03/03/2017 [facility] use <7Y History of tobacco FORMER TOBACCO USE >1Y 05/07/2016 [facility] use <7Y History of tobacco FORMER TOBACCO USE >1Y 06/07/2015 [facility] use <7Y History of tobacco CURRENT TOBACCO USER 05/10/2013 F [facility] use History of tobacco CURRENT TOBACCO USER 05/04/2012 F [facility] use History of tobacco CURRENT TOBACCO USER 01/08/2011 F [facility] use Plan of Care List of future care activities from Department of Veterans Affairs facilities. Additional future care activities may be listed in the Assessment and Plan section. Date/Time Care Activity Care Activity Detail Facility 02/19/2022 AMBULATORY - MEDICINE AMBULATORY - MEDICINE [facility]
--- OUTSIDE RECORDS SUMMARY | 2022-02-07 12:09 | XMS_ITS | Encounter Summary ---
:1950 Author Organization [facility] Address [address] [place] [id number] Support Name Relationship Address Phone USHA CORNEJO Unavailable [address] [place] [address] USHA CORNEJO Unavailable [address] [place] [address] Insurance Providers: All historical and current Section Date Range: From patient's date of to the date document was created.This section includes the names of all active insurance providers for the patient. Insurance Type of Plan Start of End of Group Member Insurance Policy P atient's Provider Coverage Name Policy Policy Number ID Provider's Haji's Relationship Coverage Coverage Telephone Name to Policy Number Haji [place] Apr 05, [id number],W P ATIENT SUPPLEMEN ARE 2018 09 [id number] [phone] ILLARD LIU SUPPL 1A EMENT [place] Apr 05, [id number], W [facility] SUPPLEMEN ARE [id number] [phone] ILLARD LIU SUPPL 1A EMENT [place] Oct 03, [id number], W [facility] SUPPLEMEN ARE [phone] ILLARD LIU SUPPL ENT MEDICARE MEDICARE PART Oct 03, PART A [id number] 800 CLEMENTE,W P ATIENT (WNR) (M) A 2013 [id number] [phone] ILLARD MEDICARE MEDICARE PART Oct 03, PART B [id number] 800 CLE[place],W P ATIENT (WNR) (M) B 2013 [id number] [phone] ILLARD MEDICARE MEDICARE PART Oct 03, PART A [id number] 800 CLEMENT[place],W P ATIENT (WNR) (M) A 2013 EV03 [id number] AMOS MEDICARE MEDICARE PART Oct 03, PART B [id number] [address] Nakia RAMIREZIENT (WNR) (M) B 2013 EV03 [phone] [facility] [place] [facility] Apr 05, [id number] [phone] Layla MARTÍNEZ [facility] [place] [facility] 2018 [id number] 1 AMOS [place] SUPPL 1A EMENT Selected Encounter This section includes the information on record at [place] for the Encounter. Date/Time Encounter Type Encounter Reason Provider Source Description Dec 25, 2021 OFFICE O/P EST UROLOGY CLINIC ICD-10-CM N41.0 BURKROB Starkey 10:30 AM MOD 30-39 MIN Acute prostatitis with Provider Comments: Acute prostatitis IHE Encounter Template Text not used by CO Assessments - Encounter Diagnoses This section includes the primary and secondary diagnoses documented for the Encounter. Date/Time Primary/Secondary Diagnosis Name Provider Source Diagnosis Dec 25, 2021 PRIMARY Acute prostatitis MALINA BURK R [facility] 11:17 AM Dec 25, 2021 SECONDARY Benign prostatic WMMALINA R [facility] 11:17 AM hyperplasia with lower urinary tract symp Dec 25, 2021 SECONDARY Elevated prostate [facility] 11:17 AM specific antigen [PSA] Dec 25, 2021 SECONDARY Feeling of WMMALINA R [facility] 11:17 AM incomplete bladder emptying Dec 25, 2021 SECONDARY Male erectile WMMALINA R [facility] 11:17 AM dysfunction, unspecified Dec 25, 2021 SECONDARY Nocturia WMMALINA R [facility] 11:17 AM Plan of Treatment: Future Appointments (+ 6 months) and Future Tests (+/- 45 days) The Plan of Treatment section includes future care activities for the patient from all [place] treatmentfacilities. This section includes future appointments and future orders which are active, pending orscheduled.Future Appointments This section includes appointments that were scheduled to occur 6 months from the date of the Encounter, up to a maximum of 20 appointments. The data comes from all [place] treatment facilities. Appointment Date/Time Appointment Type Appointment Facili ty Name Feb 19, 2022 09:00 AM AMBULATORY - MEDICINE [facility] Feb 20, 2022 07:30 AM AMBULATORY - SURGERY [facility] Lab Results: +/- 30 days of the encounter This section includes the Chemistry and Hematology Lab Results on record with CO for the patient. Radiology Reports and Pathology Reports are provided separately, in subsequent sections.Lab Results This section contains the Chemistry/Hematology Results that were resulted 30 days before or 30 daysafter the date of the Encounter. Date/Time Source Result Type Result - Unit Interpretation Reference Range Comment Dec 22, 2021 08:49 [facility] PROSTATE SPECIFIC Specimen T ype: SERUM AM ANTIGEN Comment: PSA co mments: Finasteride and Dutasteride can cause a reduction in serum PSA by approximately 50%. Free PSA levels are not affected. Due to potential for Biotin interference, especially in pat ients taking bio tin in doses of thousands of micrograms/day, the following bias may be seen: Positive: B12, Folate, FT4, Vit D, Testosterone Negative: CEA, PTH, BNP, PSA, HCG, Troponin, HCV, AHBs, HbsAG Ordering Provid er: MALINA BURK Report Released Date/Time: Dec 25, 2020 10:29 AM Reporting Lab: [facility] [address] [place] [address] Performing Lab: [facility] [address] [place] [address] PROSTATE SPECIFIC ANTIGEN 17.59 H 0-4 Dec 22, 2021 08:49 [facility] URINALYSIS Specimen Typ e: URINE AM Comment: Patien ts with asymptomatic bacteriuria/funguria/pyuria without UTI symptoms usually do not require treatment with an antimicrobial agent. Ordering Provid er: MALINA BURK Report Released Date/Time: Dec 25, 2020 10:29 AM Reporting Lab: [facility] [address] [place] [address] Performing Lab: [facility] [address] [place] [address] SPECIFIC GRAVITY 1.012 1.000-1.030 URINE KETONES Neg Neg-Trace URINE GLUCOSE Neg Neg-Trace URINE PROTEIN Neg Neg-Trace URINE PH 5.5 5.0-8.0 URINE WBC/HPF 4-7 0-7 URINE BACTERIA 1+ URINE RBC/HPF 8-20 H 0-3 URINE BLOOD 2+ Neg-Trace NITRITE, URINE Neg Neg LEUKOCYTE ESTERASE Trace Neg-Trace URINE MICROSCOPIC YES Vital Signs: All taken on the encounter date This section contains inpatient and outpatient Vital Signs collected on the date of the Encounter. Date/Time Temperature Pulse Blood Respiratory SP02 Pain Height Weight Arias dy Source Pressure Rate Mass Index Dec 25 [facility] 2021 10:51 [facility] AM Social History: Smoking Status (Most current) and Tobacco Use (All prior to encounter date) This section includes the most current, and the historical, smoking and tobacco-related health factors from the [facility] where the Encounter took place.Current Smoking Status This section includes the most current smoking, or tobacco-related health factor, from the [facility] where the Encounter took place. Date/Time Current Smoking Status Comment Facility May 07, 2016 08:37 AM FORMER TOBACCO USE >1Y <7Y [facility] Tobacco Use History This section includes a history of the smoking, or tobacco- related health factors, that were collected on or before the date of the Encounter. The data comes from the [facility] where the Encounter took place. Date/Time Smoking Status/Tobacco Use Comment [facility] Jun 07, 2015 09:01 AM FORMER TOBACCO USE >1Y <7Y [facility] May 10, 2013 08:37 AM CURRENT TOBACCO USER [facility] May 04, 2012 08:46 AM CURRENT TOBACCO USER [facility] Jan 08, 2011 08:48 AM CURRENT TOBACCO USER [facility] Radiology Reports: +/- 30 days of the encounter Radiology Reports For cases when an order for radiology services may have been completed prior to the date of the Encounter, the report list includes the Radiology Reports that were completed up to 30 days before date of the Encounter. For cases when an order for radiology services may have been completed after the date of the Encounter, the report list also includes the Radiology Reports that were completed up to 30days after date of the Encounter. The data comes from all [place] treatment facilities. Date/Time Radiology Report Provider Source Dec 25, 2021 11:[address] CHEST W/O CONTRAST: STEPHON MCKNIGHT [facility] AMY CORNEJO [id number] -[birth year] 7 M Exm Date: DEC 25, 2021@11:23 Req Phys: AUGUSTINE ENRIQUEZ Loc: [facility] PACT TEA M 2 (Req'g Loc) Img Loc: OOS CT SCAN Service: Unknown (Case [id number] COMPLETE) CT CHEST W/O CONTRAST (CT De tailed) CPT:66493 Reason for Study: tobacco use, lung cancer scre en Clinical History: Coordinate with: Urology Please contact the ordering provider at Ext. na or pager for critical results. Imaging Status Past 90 Days: No data available Report Status: Verified Date Reported: DEC 25, 2021 Date Verified: DEC 25, 2021 [facility] E-Sig:/ES/Stephon Mcknight MD Report: EXAMINATION: CT chest without IV contrast. DLP: 80.04/CTDIvol Mean: 2.02/Effective Dose: 1.1. ClearRead softw are was also used to assess the images; in this regard, findings not specifically highlighted by the radiologist are implied to b e inconsequential or false positives. \H\ \N\INDICATION: tobacco use, lung cancer screen \H\ \N\COMPARISON: CT chest dated 020\H\ \N\ FINDINGS: Lungs: No acute airspace opacity. No pleural ef fusion. No pneumothorax. No suspicious pulmonary nodule. A couple scattered punctate pulmonary nodules, similar versus comp arison. Right lower lobe focal scarring. Minimal centrilobula r emphysema. No significant interstitial fibrosis. Mediastinum: No pathologic lymphadenopathy. No ascending thoracic aortic aneurysm. No cardiomegaly. No significan t calcific coronary atherosclerosis. Thoracic wall: Unremarkable. Upper abdomen: Hepatic steatosis. Punctate focu s of left-sided nonobstructing nephrolithiasis. Moderate pancre atic fatty atrophy. Osseous: No acute osseous findings or aggressiv e osseous lesions. Mild/moderate multilevel vertebral osteoarthrit is. A couple chronic midthoracic mild vertebral body anterio r wedge compression deformities. Multiple right-sided r ib deformities, from old healed fractures. L1 pedicular enostos is. Other: Unremarkable. Impression: No suspicious pulmonary nodule. If patient meet s appropriate criteria, recommend continued annual CT lung ca ncer screening. Primary Diagnostic Code: NO ALERT REQUIRED Primary Interpreting Staff: Stephon Mcknight MD, Radiologist [facility]) /MIKEL Pathology Reports: +/- 30 days of the encounter Pathology Reports For cases when an order for pathology services may have been completed prior to the date of the Encounter, the report list includes the Pathology Reports that were completed up to 30 days before date of the Encounter. For cases when an order for pathology services may have been completed after the date of the Encounter, the report list also includes the Pathology Reports that were completed up to 30days after date of the Encounter. The data comes from all [place] treatment facilities. Date/Time Pathology Report Provider Source Dec 22, 2021 08:49 AM LR MICROBIOLOGY REPORT: [facility] Accession [UID]: [id number] [[id number]] Receive d: Dec 23, 2021@07:51 Collection sample: URINE Collection date: Dec 08:49 Provider: MALINA BURK Test(s) ordered: CULT, URINE ................. completed: Dec 25, 2021 10:39 * BACTERIOLOGY FINAL REPORT => Dec 25, 2021 10:5 4 TECH CODE: [id number] CULTURE RESULTS: PSEUDOMONAS AERUGINOSA - Quanti ty: 70,000 CFU/mL ANTIBIOTIC SUSCEPTIBILITY TEST RESULTS: PSEUDOMONAS AERUGINOSA : SUSC INTP GENTAMICIN.................... <=1 S CIPROFLOXACIN................. S S CEFTAZIDIME................... 4 S TOBRAMYCIN.................... <=1 S IMIPENEM (GR NEG)............. 1 S PIPER/TAZO.................... 8 S LEVOFLOXACIN(GN).............. I I =--=--=--=--=--=--=--=--=--=--=--=--=--= --=--=--=--=--=--=--=--=--=--=--=--=-- Performing Laboratory: Bacteriology Report Performed By: [facility] [CLIA# [id number]] [address] [place] [id number] Encounter Notes: All associated encounter notes This section contains the clinical notes associated to the Encounter. Date/Time Encounter Note(s) Provider Source Dec 25, 2021 11:18 AM MEDICATION MGT NOTE: MALINA BURK [facility] LOCAL TITLE: MEDICATION RECONCILIATION SURGICAL SPECIALTY 2B STANDARD TITLE: MEDICATION MGT NOTE DATE OF NOTE: DEC 25, 2021@11:18 ENTRY DATE: DEC 25, 2021@11:18:08 AUTHOR: MALINA BURK EXP COSIGNER: URGENCY: STATUS: COMPLETED AMY CORNEJO Date of : Oct Today's Date: DEC 25, 2021 This medication list was provided to you and/or caregiver per your medical record at the [facility]. (This list is accurate as of the time & date of this appointment.) The following have been reviewed with patient/ca regiver: Active VA Medications, Remote Active VA Prescriptions, Non-VA Medicatio ns, and Discontinued VA Prescriptions within the last 90 days, Pending I npatient and Outpatient Medication orders, Inpatient Medications, and Al lergies - Remote and Local Counseling was provided on new/revised medicatio ns; written instructions provided; understanding was verbalized on all ch anges. Antibiotics have also been prescribed and written instructions provide d on antimicrobial stewardship, understanding was verbalized. If there are any discrepancies, please address t hem with the provider who ordered that medication for you. ACTIVE = Medication you should be taking at [facility] e. HOLD = Active medication that hasn't been fille d by pharmacy yet due to patient request. PENDING = Active medication ordered by your prov ider that will be processed and filled by the pharmacy. * Always take medications exactly as prescribed. * Carry the most current medication list with yo u at all times. * Always bring your current medications (and lis t) to clinic visits * to be sure they are correct. Active and Recently Outpatient Medicatio ns (including Supplies): Active Outpatient Medications Status 1) ATORVASTATIN CALCIUM 10MG TAB TAKE ONE TABLET BY ACTIVE MOUTH AT BEDTIME FOR CHOLESTEROL 2) SULFAMETHOXAZOLE 800/TRIMETH 160MG TAB TAKE 1 .5 ACTIVE TABLETS (800/160MG) BY MOUTH EVERY 12 HOURS ACU TE PROSTATITIS 3) TAMSULOSIN HCL 0.4MG CAP TAKE TWO CAPSULES BY MOUTH ACTIVE EVERY 24 HOURS AFTER SAME MEAL FOR IMPROVED URINATION Active Non-VA Medications Status 1) Non-VA ASPIRIN 81MG EC TAB 81MG MOUTH EVERY 2 4 HOURS ACTIVE 2) Non-VA FISH OIL 1000MG ORAL CAP MOUTH EVERY M ORNING ACTIVE 3) Non-VA OTHER-ENTER NAME IN COMMENTS CAP/TAB V IT D 3 ACTIVE 2000 UNITS MOUTH EVERY MORNING 4) Non-VA PSYLLIUM SF ORAL PWD 1 TEASPOONFUL JAMIE TH ACTIVE NEEDED 5) Non-VA ZZMULTIVIT W/MINERALS TAB (WITH VIT K) 1 ACTIVE TABLET MOUTH EVERY DAY 8 Total Medications FACILITY ALLERGY/ADR -------- No Remote Allergy/ADR Data available for this [facility] PENICILLIN For standard medication refills please call: 04-12 [phone] or by going to: [email or web address]. Dec 25, 2021 11:18 AM SURGERY NOTE: MALINA BURK CO H LOCAL TITLE: SURGERY/ANESTHESIA SCHEDULING NOTE STANDARD TITLE: SURGERY NOTE DATE OF NOTE: DEC 25, 2021@11:18 ENTRY DATE: DEC 25, 2021@11:18:27 AUTHOR: MALINA BURK EXP COSIGNER: URGENCY: STATUS: COMPLETED SURGERY/ANESTHESIA SCHEDULING NOTE Has ADDE NDA SURGERY/PROCEDURE: cystoscopy LENGTH OF PROCEDURE: 20 minutes SIDE/LATERALITY: Other DIAGNOSIS: urinary retention/frequent UTIs. ankita knowles seen in clinic. needs lab draw PSA prior to cysto in the AM. no need for C T urogram. PATIENT DISPOSITION: Outpatient Only SPECIAL EQUIPMENT: Yes Special equipment flexibl e cystoscope PROSTHETIC CONSULT: not needed CLEARED FOR SURGERY: Yes IS PLANNED SURGICAL PROCEDUR E FOR PALLIATION, EITHER THERAPEUTIC OR DIAGNOSTIC: Yes FROZEN SECTIONS: No ANESTHESIA: local CLINICALLY INDICATED DATE: Feb ATTENDING SURGEON: Dr. Weaver Patient is not on dialysis. Patient is on blood thinners. Aspirin Do not hold this medication. Patient is not on immunosuppressants. /jaiml/ MALINA BURK PA-C [facility]IN[facility] Signed: 12/25/2021 11:19 12/25/2021 ADDENDUM STATUS: COMPLETED schedule 02/20/22 /jamil/ K[facility]IL [facility] Signed: 12/25/2021 11:30 Dec 25, 2021 11:13 AM EDUCATION NOTE: ESTELA DE [facility] LOCAL TITLE: EDUCATION NOTE - OUTPATIENT STANDARD TITLE: EDUCATION NOTE DATE OF NOTE: DEC 25, 2021@11:13 ENTRY DATE: DEC 25, 2021@11:13:43 AUTHOR: ESTELA DE EXP COSIGNER: URGENCY: STATUS: COMPLETED EDUCATION NOTE - OUTPATIENT Has ADDENDA EDUCATION NEEDS: Patient has the following education needs: test s/procedures cystoscopy BARRIERS AFFECTING LEARNING: No barriers to education INSTRUCTIONAL PREFERENCE Doing Hearing Reading Visual Education: Clinical Skills' education given. Title of document: cystoscopy Level of Understanding: Good Education provided to: Patient , Family/other Verbalizes understanding OPTIONAL comment: scheduled for Feb 20 at 0730 /jamil/ Estela De [facility] Signed: 12/25/2021 11:15 12/25/2021 ADDENDUM STATUS: COMPLETED Will do a PSA blood draw in [facility] the day before /pita De [facility] Signed: 12/25/2021 11:19 Dec 25, 2021 11:11 AM UROLOGY PHYSICIAN REMITTANCE CLERK NOTE: Jkay BURK [facility] LOCAL TITLE: UROLOGY PHYSICIAN REMITTANCE CLERK NOTE STANDARD TITLE: UROLOGY PHYSICIAN REMITTANCE CLERK NOTE DATE OF NOTE: DEC 25, 2021@11:11 ENTRY DATE: DEC 25, 2021@11:11:21 AUTHOR: MALINA BURK EXP COSIGNER: URGENCY: STATUS: COMPLETED UROLOGY PHYSICIAN REMITTANCE CLERK NOTE Has ADDEND A REASON FOR VISIT: F/U BPH/LUTS; ELEVATED PSA (Bi ll) PRESENT ILLNESS:AMY Monroy is a 71 y.o. male who is seen in the urology clinic today for f/u of BPH/LUTS. Last s een/contacted Dec 2020 with recs of continuing meds, cont viagra prn and rec heck in 1 year. Pt called in Apr 2021 and reported dizziness and then quit e finasteride and the dizziness went away. Urinary shelley, pt had significant UTI treated in [facility] on . was given 10 days of keflex for thi s. needed an indwelling yoo for a week as well because he couldnt urin ate. the yoo was removed at [facility] on . prior to 12sept h ad a day or two of frequency/urgency and pain in the prostate area. pain got too great, so went into the local UC and was txd for UTI. pt is onl y so,so with urination. he can urinate on his own now, but nocturia is 4-5. frequency is q1-2hrs. no more dysuria. no burning. no testicular pain. no f/c/n/v/d. has 1 more pill of keflex left. To note, he did have increa sing trouble to urinate this past summer and appx 3 months ago flomax was inc reased from 1 to 2 capsules. Drinks 1 (12 oz) mug coffee in am. No tea or pop . Drinks 64 oz water. Meds: Reviewed. Uro Meds: flomax 0.8mg, viagra P RN PSH: TRUS + BIOPSY OF PROSTATE 2013 BILATERAL INGUINAL HERNIA REPAIR COLONOSCOPY RIGHT ANKLE SURGERY HEMORRHOIDECTOMY CHEST TUBE FOR COLLAPSED LUNG 2020 VATS 2020 FH: NO FAMILY H/O PROSTATE CANCER SOC: Claudine, LACEY; , RETIRED, WORKED FOR [employer]; avid [employer] (likes pheasants in [facility]) PHYSICAL EXAM: General Appearance: WD, middle aged WM in NAD Rectum: no rectal masses. Prostate: soft, nontender, no nodules; approx. 3 0-35 grams (2019) deferred today due to prostate infection. PVR = 100 mL; 36 mL 2019; 116 mL 2018; 138 mL 2 018; 150 mL 2016 LABS: SERUM PSA Ref range low 0 Ref range high 4 ng/mL [b] Dec 22, 2021 08:49 17.59 H [b] Dec 11, 2020 14:16 2.62 Stopped finasteride Apr 2021 [c] Nov 21, 2019 09:24 2.11 [b] Dec 12, 2018 08:53 2.13 [b] Dec 23, 2017 15:16 2.61 [e] Dec 16, 2016 09:28 3.02 [f] Apr 22, 2016 08:58 2.50 [j] Apr 25, 2015 11:43 5.05 H [m] Jul 31, 2014 11:01 6.03 H [n] Jan 04, 2014 08:17 6.82 H [o] Jun 29, 2013 09:22 4.07 H [q] Jun 01, 2013 08:37 4.07 H [v] May 10, 2013 08:38 4.42 H [z] May 04, 2012 11:04 3.60 ---- CHEMISTRY PROFILE ---- SERUM Nov 20 Nov 20 Dec 27 May 12 Reference 2019 2019 2018 2017 09:24 09:24 09:37 08:20 Units Ranges CREAT 1.0 1.1 1.0 mg/dL .7 - 1. TESTOS 508 ng/dl ---- URINALYSIS PROFILE ---- URINE Dec 22 Dec 11 Nov 20 Dec 12 Reference 2021 2020 2019 2018 08:49 14:16 09:24 08:53 Units Ranges COLOR APPEARA SP.GRAV 1.012 1.013 1.017 1.015 1 - 1.03 UR. BLD 2+ Neg Neg Neg Ref: Neg-Trace KETONES Neg Neg Neg Neg Ref: Neg-Trace GLU Neg Neg Neg Neg Ref: Neg-Trace PROTEIN Neg Neg Neg Neg Ref: Neg-Trace PH 5.5 5.5 5.5 6.0 5 - 8 NITRITE Neg Neg Neg Neg Ref: Neg LEUK ES Trace Neg Neg Neg Ref: Neg-Trace WBC/HPF 4-7 /HPF 0 - 7 RBC/HPF 8-20 H /HPF 0 - 3 UR.BACT 1+ PROSTATE SIZE BY US: 92 GRAMS IN 2014 IMPRESSION: ACUTE PROSTATITIS ENLARGED PROSTATE WITH LUTS INCOMPLETE BLADDER EMPTYING NOCTURIA ELEVATED PSA MALE ERECTILE DYSFUNCTION PLAN: PSA/UA/PVR dw pt and spouse. culture not b ack Stop keflex Start bactrim DS f30d #60. RBSIsaiah dw pt Cont flomax. THe combo of flomax and finasteirde caused too much dizziness Will do cysto in mid February to see if pt is s urgical candidate pt continues to get UTIs at times. likely due t o not emptying well and cant tolerate finasteride Will repeat PSA prior to cysto that AM as well and make sure PSA is coming down. PSA should be around 5 with out finasteirde if PSA still up significantly, then will need b x. last bx 2013 F/u depends on cysto or f/u PRN TEST RESULTS, ASSESSMENT AND RECOMENDATIONS DISC USSED WITH PATIENT WHO UNDERSTANDS AND ACCEPTS. /jamil/ MALINA BURK PA-C UROLOGY CLINIC Signed: 12/25/2021 11:17 12/25/2021 ADDENDUM STATUS: COMPLETED called [id number]. nee ds to stop bactrim. pseudo is resistant to bactrim. pt verbalized understanding. will mail praveen Vuong. GREER diaz pt. he verbalized understanding. ---- MICROBIOLOGY ---- Accession [UID]: [id number] [[id number]] Receiv ed: Dec 23, 2021@07:51 Collection sample: URINE Collection date: Dec 042021 08:49 Test(s) ordered: CULT, URINE ................. completed: Dec 25, 2021 10:39 * BACTERIOLOGY FINAL REPORT => Dec 25, 2021 10: 54 TECH CODE: [id number] CULTURE RESULTS: PSEUDOMONAS AERUGINOSA - Quant ity: 70,000 CFU/mL ANTIBIOTIC SUSCEPTIBILITY TEST RESULTS: PSEUDOMONAS AERUGINOSA : SUSC INTP GENTAMICIN.................... <=1 S CIPROFLOXACIN................. S S CEFTAZIDIME................... 4 S TOBRAMYCIN.................... <=1 S IMIPENEM (GR NEG)............. 1 S PIPER/TAZO.................... 8 S LEVOFLOXACIN(GN).............. I I =--=--=--=--=--=--=--=--=-- =--=--=--=--=--=--=--=--=--=--=--=--=--=--=--=--=-- /jamil/ MALINA BURK PA-C UROLOGY CLINIC Signed: 12/25/2021 16:14 Dec 25, 2021 10:50 AM UROLOGY NURSING NOTE: ESTELA DE [facility] LOCAL TITLE: UROLOGY NURSING NOTE STANDARD TITLE: UROLOGY NURSING NOTE DATE OF NOTE: DEC 25, 2021@10:50 ENTRY DATE: DEC 25, 2021@10:50:47 AUTHOR: ESTELA DE EXP COSIGNER: URGENCY: STATUS: COMPLETED MEDICATION REVIEW for MEDICATION RECONCILIATION: * ACTIVE OUTPATIENT MEDICATIONS: Active and Recently Outpatient Medicatio ns (including Supplies): Active Outpatient Medications Status 1) ATORVASTATIN CALCIUM 10MG TAB TAKE ONE TABLET BY ACTIVE MOUTH AT BEDTIME FOR CHOLESTEROL 2) TAMSULOSIN HCL 0.4MG CAP TAKE TWO CAPSULES BY MOUTH ACTIVE EVERY 24 HOURS AFTER SAME MEAL FOR IMPROVED URINATION Active Non-VA Medications Status 1) Non-VA ASPIRIN 81MG EC TAB 81MG MOUTH EVERY 2 4 HOURS ACTIVE 2) Non-VA FISH OIL 1000MG ORAL CAP MOUTH EVERY M ORNING ACTIVE 3) Non-VA OTHER-ENTER NAME IN COMMENTS CAP/TAB V IT D 3 ACTIVE 2000 UNITS MOUTH EVERY MORNING 4) Non-VA PSYLLIUM SF ORAL PWD 1 TEASPOONFUL JAMIE TH ACTIVE NEEDED 5) Non-VA ZZMULTIVIT W/MINERALS TAB (WITH VIT K) 1 ACTIVE TABLET MOUTH EVERY DAY 7 Total Medications Medication review for medication reconciliation done. No changes noted. WOMEN's HEALTH: PATIENT is EXCLUDED from the women's health que stions. ABUSE SCREENING: Do you have any concerns about feeling safe, neg lected or abused? No reported concerns. Are you having or have you had thoughts of harmi ng yourself in the last 12 months? No Allergy/Adverse Drug Reaction information * ALLERGY/ADVERSE DRUG REACTION: PENICILLIN (Jan 08, 2011) Does the patient report any new allergies? No Latex Allergy: Does patient have latex allergy or sensitivity? Patient previously reports No latex allergy/se nsitivity at this time. Pain Screening: Patient's last recorded pain score: 7 (12/23/19 22 11:02) Does patient have pain?: Yes Patient pain rating. 1 Has ongoing problems with pain?:No Is on pain control medications/treatments?: No Comprehensive Pain Assessment: Origin/Cause of pain: Comment: UTI Location of pain: Comment: penis while urinating Quality: Describe the pain. Comment: Burning Onset, duration, patterns, alleviating/aggravat ing factors: Effects of pain on day to day living. Comment: Sleep, Physical Activity Pain Goal: 0 Post Void Residual (PVR) obtained today? Yes, PVR obtained today. Patient instructed to void and empty bladder pr ior to bladder scan. Bladder scan ordered per provider for LUTs Bladder scan showed 100 mL of urine remaining i n bladder. Patient tolerated procedure well. Results repor santiago to provider. Comments: f/u BPH/LUTs; elevated PSA /es/ Estela Carmen De LPN [facility] Signed: 12/25/2021 10:57
--- OUTSIDE RECORDS SUMMARY | 2022-02-07 12:09 | XMS_ITS | Encounter Summary ---
:[address] [facility] Address [address] [place] [address] Support Name Relationship Address Phone USHA CORNEJO Unavailable [address] [place] [address] USHA CORNEJO Unavailable [address] [place] [address] Insurance Providers: All historical and current Section [...] Haji [place] Apr 05, [id number],W P ATIENT SUPPLEMEN ARE 2018 09 [id number] [phone] ILLARD LIU SUPPL 1A EMENT [place] Apr 05, [id number], W [facility] SUPPLEMEN ARE 2018 09 [id number] [phone] ILLARD LIU SUPPL 1A EMENT [place] MED[place] Oct 03, [id number], W [facility] SUPPLEMEN ARE [phone] ILLARD LIU SUPPL EMENT MEDICARE MEDICARE PART Oct 03, PART A [id number] 800 [place],W P ATIENT (WNR) (M) A 2013 EV03 [phone] ILLARD MEDICARE MEDICARE PART Oct 03, PART B [id number] 800 [place],W P ATIENT (WNR) (M) B 2013 EV03 [phone] ILLARD MEDICARE MEDICARE PART Oct 03, PART A [id number] 800 [place],W P ATIENT (WNR) (M) A 2013 EV03 [phone] AMOS MEDICARE MEDICARE PART Oct 03, PART B [id number] Layla CORNEJO ATIENT (WNR) (M) B 2013 EV03 [phone] [facility] Apr 05, [id number] [phone] Layla MARTÍNEZ PATIENT OF [facility] ARE 2018 09 [id number] [facility] [place] SUPPL 1A EMENT Selected Encounter This section includes the information on record at [facility] for the Encounter. Date/Time Encounter Type Encounter Reason Provider Source Description Nov 05, 2021 OFFICE O/P EST PRIMARY ICD-10-CM MINAGRACIELA A 09:00 AM MOD 30-39 MIN CARE/MEDICINE R73.01 Impaired fasting glucose with Provider Comments: Impaired fasting glucose ([facility] [id number]) IHE Encounter Template Text not used by [facility] Assessments - Encounter Diagnoses This section includes the primary and secondary diagnoses documented for the Encounter. Date/Time Primary/Secondary Diagnosis Name Provider Source Diagnosis Nov 06, 2021 PRIMARY Impaired fasting MINA,GRACIELA BARNHARTWN [place] 07:19 AM glucose CLINIC Nov 06, 2021 SECONDARY Benign prostatic MINA,GRACIELA MCLAIN [place] 07:19 AM hyperplasia with CLINIC lower urinary tract symp Nov 06, 2021 SECONDARY Elevated prostate MINAGRACIELA VARELA [place] 07:19 AM specific antigen CLINIC [PSA] Nov 06, 2021 SECONDARY Nocturia GRACIELA ENRIQUEZWN [place] 07:19 AM CLINIC Nov 06, 2021 SECONDARY Other specified MINAGRACIELA V A 07:19 AM postprocedural CLINIC states Nov 06, 2021 SECONDARY Personal history of MINA,GRACIELA BARNHART [facility] 07:19 AM colonic polyps CLINIC Nov 06, 2021 SECONDARY Personal history of MINAGRACIELA [facility] 07:19 AM malignant melanoma CLINIC of skin Nov 06, 2021 SECONDARY Personal history of MINAGRACIELA VARELA [facility] 07:19 AM nicotine dependence CLINIC Nov 06, 2021 SECONDARY Poor urinary stream MINAGRACIELA VARELA [facility] 07:19 AM CLINIC Nov 06, 2021 SECONDARY Spontaneous [place]AGRACIELAWN [place] 07:19 AM ecchymoses CLINIC Nov 06, 2021 SECONDARY Unspecified MINA,GRACIELA MCLAIN [place] 07:19 AM osteoarthritis, CLINIC unspecified site Plan of Treatment: Future Appointments (+ 6 months) and Future Tests (+/- 45 days) The Plan of Treatment section includes future care activities for the patient from [facility] This section includes future appointments and future orders which are active, pending orscheduled.Future Appointments This section includes appointments that were scheduled to occur 6 months from the date of the Encounter, up to a maximum of 20 appointments. The data comes from all [facility]. Appointment Date/Time Appointment Type Appointment Facili ty Name Dec 22, 2021 09:00 AM AMBULATORY MEDICINE [facility] Dec 22, 2021 09:30 AM AMBULATORY MEDICINE [facility] Dec 25, 2021 10:30 AM [facility] SURGERY [facility] Dec 25, 2021 11:30 AM [facility] Feb 19, 2022 09:00 [facility] Feb 20, 2022 07:30 AM [facility] Active, Pending, and Scheduled Orders This section includes a listing of several types of active, pending, and scheduled orders, including clinic medications orders, diagnostic test orders, procedure orders and consult orders; where the start date of the order is 45 days before the date of the Encounter or 45 days after the date of the Encounter. The data comes from all [facility]. 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 Radiology Reports and Pathology Reports are provided separately, in subsequent sections.Lab Results This section contains the Chemistry/Hematology Results that were resulted 30 days before or 30 daysafter the date of the Encounter. Date/Time Source Result Type Result - Unit Interpretation Reference Range Comment Nov 05, 2021 09:26 [facility] HEMOGLOBIN A1C Specimen Type: BLOOD AM Comment: Target A1C values should be individualized. Better understanding of A1C test result accuracy is essential if clinicians are to interpret results for Veterans, and discuss treatment options thr ough the process of Shared Decision Making. Providers may contact the Laboratory for performance characteristics of this assay. Ordering Provid er: GRACIELA ENRIQUEZ Report Released Date/Time: Nov 05, 2021 08:42 AM Reporting Lab: [facility] [address] [place] [address] Performing Lab: [address] [place] [address] HEMOGLOBIN A1C 5.6 4.0-6.0 Nov 05, 2021 09:26 AM [facility] CHEM7 Speci men Type: PLASMA Comment: SEA SALMERON comments: Desirable: <200 mg/dL Borderline High: 200- 239 mg/dL High: >=240 mg/dL HDL comments: <40 mg/dL: Low HDL-cholesterol (major risk factor for CHD) >= 60 mg/dL: H igh HDL-Choleste rol (Negative risk factor for CHD) LDL comments: <100 mg/dL Optimal 100-129 mg/dL Near or above optimal 130-159 mg/dL Borderline high 160- 189 mg/dL High >= 190 mg/dL Very High VL DL is not accura te when the trig >400 mg/dl: result not reported Glucose reference range is based on fasting specimen. Estimated Glomerular Filtration Rate (eGFR) calculated using the 2020 Chronic Ki dney Disease-Epi demiology (CKD-EPI) Collaboration creatinine equation; units of measure are mL/min/1.73 m2. Ordering Provid er: GRACIELA ENRIQUEZ Report Released Date/Time: Nov 05, 2021 08:42 AM Reporting Lab: [facility] [address] [place] [address] Performing Lab: [place] [address] [place] [address] CREATININE 1.0 0.7-1.2 UREA NITROGEN 15 8-23 GLUCOSE 108 74-109 SODIUM 140 136-145 POTASSIUM 4.0 3.5-5.0 CHLORIDE 107 98-107 CO2 21 L 22-29 EGFR_CKD_EPI 79.0 >=60 Nov 05, 2021 [facility] LIPID PROFILE, Specimen Ty pe: PLASMA 09:26 AM NON-FASTING Comment: SEA SALMERON comments: Desirable: <200 mg/dL Borderline High: 200-239 mg/dL High: >=240 mg/dL HDL comments: <40 mg/dL: Low HDL-cholesterol (major risk factor for CHD) >= 60 mg/dL: H igh HDL-Choleste rol (Negative risk factor for CHD) LDL comments: <100 mg/dL Optimal 100-129 mg/dL Near or above optimal 130-159 mg/dL Borderline high 160- 189 mg/dL High >= 190 mg/dL Very High VL DL is not accura te when the trig >400 mg/dl: result not reported Glucose reference range is based on fasting specimen. Estimated Glomerular Filtration Rate (eGFR) calculated using the 2020 Chronic dney Disease-Epi demiology (CKD-EPI) Collaboration creatinine equation; units of measure are mL/min/1.73 m2. Ordering Provid er: GRCAIELA ENRIQUEZ Report Released Date/Time: Nov 05, 2021 08:42 AM Reporting Lab: [facility] [address] [place] [address] Performing Lab: [facility] [address] [place] [address] CHOLESTEROL 128 SEE COMMENTS TRIGLYCERIDE 59 0-150 HDL 59 SEE COMMENTS LDL MEASURED 61 SEE COMMENTS VLDL CALCULATION 12 5-40 Nov 05, 2021 09:26 AM [facility] CBC+DIFF Speci men Type: BLOOD No comment enter ed. Ordering Provid er: GRACIELA ENRIQUEZ Report Released Date/Time: Nov 05, 2021 08:42 AM Reporting Lab: [facility] [address] [place] [address] Performing Lab: [facility] [address] [place] [address] WBC 5.7 4.8-10.8 RBC 4.79 4.5-6.1 HGB 15.3 13.5-17.5 HCT 44 42-52 MCV 92.7 80-100 MCH 31.9 H 27-31 MCHC 34.5 33-37 PLT 200 150-450 MPV 10.5 H 7.4-10.4 RDW 42.0 36.0-47.0 EO % 3.9 EO ABS 0.2 0-0.5 BASO % 0.7 BASO ABS 0.0 0-0.2 NEUTROPHIL % 59.5 NEUTROPHIL ABS 3.4 2-8 LYMPH % 29.4 LYMPH, ABS 1.7 1-4 MONO % 6.1 MONO,ABS 0.4 0-0.6 IMMATURE GRAN % 0.4 IMMATURE GRAN ABS 0.0 0-0.07 NRBC % 0.0 0-0.13 Vital Signs: All taken on the encounter date This section contains inpatient and outpatient Vital Signs collected on the date of the Encounter. Date/Time Temperature Pulse Blood Respiratory SP02 Pain Height Weight Michelle dy Source Pressure Rate Mass Index Nov 05 [facility]2021 08:56 [facility] Nov 05, 98.2 F 61 117/69 20 /min 95 % 2 72.5 in 223.2 30 JAMEST O 2021 08:52 /min mm[Hg] lb WN [facility] Social History: Smoking Status (Most current) and Tobacco Use (All prior to encounter date) This section includes the most current, and the historical, smoking and tobacco-related health factors from the [place] facility where the Encounter took place.Current Smoking Status This section includes the most current smoking, or tobacco-related health factor, from the [place] facility where the Encounter took place. Date/Time Current Smoking Status Comment Facility Nov 05, 2021 09:00 AM SD-TOBACCO FORMER USER [facility] Tobacco Use History This section includes a history of the smoking, or tobacco- related health factors, that were collected on or before the date of the Encounter. The data comes from the [facility] where the Encounter took place. Date/Time Smoking Status/Tobacco Use Comment [facility] it Nov 05, 2021 09:00 AM SD-TOBACCO QUIT 15 YRS OR MORE [facility] Oct 24, 2020 08:30 AM VA-TOBACCO FORMER USER [facility] Oct 24, 2020 08:30 AM VA-TOBACCO QUIT 5 TO < 15 YRS [facility] Nov 21, 2019 09:00 AM VA-TOBACCO FORMER USER [facility] Nov 21, 2019 09:00 AM SD-TOBACCO QUIT 5 TO < 15 YRS [facility] Dec 15, 2017 04:23 PM LIFETIME NON-TOBACCO USER [facility] Mar 03, 2017 08:30 AM FORMER TOBACCO USE >1Y <7Y [facility] Encounter Notes: All associated encounter notes This section contains the clinical notes associated to the Encounter. Date/Time Encounter Note(s) Provider Source Nov 06, 2021 04:16 PM PRIMARY CARE LETTERS: GRACIELA ENRIQUEZ [facility] LOCAL TITLE: PRIMARY CARE LETTER STANDARD TITLE: PRIMARY CARE LETTERS DATE OF NOTE: NOV 06, 2021@16:16 ENTRY DATE: NOV 06, 2021@16:16:22 AUTHOR: GRACIELA ENRIQUEZ EXP COSIGNER: URGENCY: STATUS: COMPLETED [facility] [address] [place] [address] KHURRAM CORNEJO [address] [facility] [address] NOV 06, 2021 Dear [place]: I am writing to review the results of your recen t lab testing. The blood counts, including white cells, red mari ls and platelets, are normal. There is no anemia or blood disorder. The A1c is a screening test for diabetes. Your r esults are normal. Keep up the good work! The cholesterol levels are within target. Please continue your current regimen. The kidney function and electrolytes are normal. This looks fine. To clarify any of the information in this letter , to coordinate the scheduling of appointments, or for health care advice regar ding new symptoms or illness, please call . CELL COUNTS (CBC): White cells: 5.7 (11/05/21 09:26) Hemoglobin: 15.3 (11/05/21 09:26) Platelets: 200 (11/05/21 09:26) DIABETES LABS: Blood sugar: 108 (11/05/21 09:26) A1C: 5.6 (11/05/21 09:26) Your goal is less than 5.7 CHOLESTEROL PANEL: Total cholesterol: 128 (11/05/21 09:26) Your goal is less than 200 Triglycerides: 59 (11/05/21 09:26) Your goal is less than 150 HDL (Good cholesterol): 59 (11/05/21 09:26) Your goal is more than 40 LDL (Bad cholesterol): Collection DT Spec LDL-c a 10/24/2020 09:22 PLASM 58 target <70 - 100 KIDNEY FUNCTION: Creatinine: 1.0 (11/05/21 09:26) BUN: 15 (11/05/21 09:26) Sodium: 140.0 (11/05/21:26) Potassium: 4.0 (11/05/21 09:26) The [facility] strives to fulfill the p romise of caring for those who have borne the chong by serving and honori ng the men and women who are [employer]. Sincerely, Graciela Enriquez MD Nov 05, 2021 09:30 AM MEDICATION MGT NOTE: GRACIELA ENRIQUEZ [facility] LOCAL TITLE: MEDICATION RECONCILIATION [facility] STANDARD TITLE: MEDICATION MGT NOTE DATE OF NOTE: NOV 05, 2021@09:30 ENTRY DATE: NOV 05, 2021@09:30:25 AUTHOR: GRACIELA ENRIQUEZ EXP COSIGNER: URGENCY: STATUS: COMPLETED KHURRAM CORNEJO Date of : Oct Today's Date: NOV 05, 2021 1. lab today 2. increase tamsulosin (flomax) to 2 capsules (0 .8mg) nightly for bladder emptying and prostate - urology to followup in S eptember 3. CT for lung cancer screen [facility]. dermatology referral for melanoma surveillanc e 5. 1 year [facility] appt This medication list was provided to you and/or caregiver per your medical record at the [facility] (This list is accurate as of the time & date of this appointment.) The following have been revi ewed with patient/caregiver: Active VA Medications, Remote Active VA Prescriptio ns, Non-VA Medications, and Discontinued VA Prescriptions within the last 90 days, Pending I npatient and Outpatient Medication orders, Inpatient Medications, and Al lergies - Remote and Local Counseling was provided on new/revised medicatio ns; written instructions provided; understanding was verbalized on all ch anges. If there are any discrepancies, please address t hem with the provider who ordered that medication for you. ACTIVE = Medication you should be taking at [facility] e. HOLD = Active medication that hasn't [...] 10MG TAB TAKE ONE TABLET BY ACTIVE (S) MOUTH AT BEDTIME FOR CHOLESTEROL 2) TAMSULOSIN HCL 0.4MG CAP TAKE TWO CAPSULES BY MOUTH ACTIVE (S) EVERY 24 HOURS AFTER SAME MEAL FOR [...] TABLET MOUTH EVERY DAY 7 Total Medications FACILITY ALLERGY/ADR -------- No Remote Allergy/ADR Data available for this [facility] PENICILLIN For standard medication refills please call: [phone] or by going to: [email or web address].[place].gov. Nov 05, 2021 08:53 AM PRIMARY CARE NURSING NOTE: VICENTE DICKEY [facility] LOCAL TITLE: PRIMARY CARE NURSING NOTE STANDARD TITLE: PRIMARY CARE NURSING NOTE DATE OF NOTE: NOV 05, 2021@08:53 ENTRY DATE: NOV 05, 2021@08:53:29 AUTHOR: VICENTE DICKEY EXP COSIGNER: URGENCY: STATUS: COMPLETED PRIMARY CARE NURSING NOTE Has ADDENDA REASON FOR VISIT/CONCERNS: VAP for humberto l exam, fasting for lab work. Has skin concerns/moles to check today, hx of melanoma, s topped finasteride d/t dizziness and now having urinary concerns 6+ mon ths ongoing, great toe/black spot on the nail. LEVEL OF CONSCIOUSNESS: Alert, Appropriate, Orie nted X3 Are you having or have you had thoughts of harmi ng yourself in the last 12 months? No ABUSE SCREENING: Do you have any concerns about feeling safe, neg lected or abused? No reported concerns. WOMEN's HEALTH: PATIENT is EXCLUDED from the women's health que stions. Allergy/Adverse Drug Reaction information * ALLERGY/ADVERSE DRUG REACTION: PENICILLIN (Jan 08, 2011) Does the patient report any new allergies? No Latex Allergy: Does patient have latex allergy or sensitivity? No MEDICATION REVIEW for MEDICATION RECONCILIATION: * ACTIVE OUTPATIENT MEDICATIONS: Active and Recently Outpatient Medicatio ns (including Supplies): Inactive Outpatient Medications Status 1) ATORVASTATIN CALCIUM 20MG TAB TAKE ONE-HALF T ABLET BY MOUTH AT BEDTIME FOR CHOLESTEROL 2) TAMSULOSIN HCL 0.4MG CAP TAKE ONE CAPSULE BY MOUTH EVERY 24 HOURS AFTER SAME MEAL FOR [...] for medication reconciliation done. No changes noted. Non-VA Medication Discrepancies Identified: add ed Align probiotic capsule, one daily Provider notified. PAIN ASSESSMENT: Pain Screening: Patient's last recorded pain score: 2 (11/06/19 22 08:52) Does patient have pain?: Yes some pain to left knee, not new Patient pain rating. 2 Has ongoing problems with pain?:No Is on pain control medications/treatments?: No PLAN OF CARE: Assessment and Plan: Per Advance Directive /2018: ADVANCE DIRECTIVE NOTIFICATION: Patient was given written [facility] rights: 1. Accept or refuse any medical treatment. 2. Complete a durable power of equine internship for [facility] care. 3. Complete a living will. The patient has no Advance Directive currently on file. Does the patient want to create an Advance Dire ctive for Health Care? The [place] Advance Directive information folder was given to patient/family. The patient has no questions about completing [facility] advance directive forms. Suicide Screen: C-SSRS Screening [place] Suicide Severity Rating Scale (C-SSRS) screener 1. Over the past month, have you wished you wer e or wished you could go to sleep and not wake up? No 2. Over the past month, have you had any actual thoughts of killing yourself? No 3. Over the past month, have you been thinking about how you might do this? Response not required due to responses to other questions. 4. Over the past month, have you had these thou ghts and had some intention of acting on them? Response not required due to responses to other questions. 5. Over the past month, have you started to wor k out or worked out the details of how to kill yourself? Response not required due to responses to other questions. 6. If yes, at any time in the past month did yo u intend to carry out this plan? Response not required due to responses to other questions. 7. In your lifetime, have you ever done anythin g, started to do anything, or prepared to do anything to end you r life (for example, collected pills, obtained a gun, gave away valu guerrero, went to the roof but didn't jump)? No 8. If YES, was this within the past 3 months? Response not required due to responses to other questions. Pressure Ulcer Risk (Outpatient): Does the [place] report; - any current pressure ulcers, - a history of pressure ulcers, - a pressure ulcer/wound from a product manager medical device, such as an artificial limb, braces, splint, implanted pump , automatic implanted cardioverter-defibrillator, oxygen tu artis, yoo/condom catheter, tracheostomy, feeding tu be or other medical devices? - or is the [place] bed-confined, a wheelchair user, or requires assistance to transfer or to change position? Pressure Ulcer Risk - NO Patient is not a Pressure Ulcer Risk. Relationship Health & Safety Screen: RELATIONSHIP HEALTH & SAFETY SCREEN ENVIRONMENTAL SAFETY CHECK: Environment is safe to proceed INFORMED CONSENT TO SCREEN & DOCUMENT: Individual consents to documentation? Yes Individual consents to proceed with screening? Yes PRIMARY SCREEN: In the past 12 months, how often did a current or former intimate partner (e.g., boyfriend, girlfriend, , , se xual partner): Scream or curse at you: Never Insult or talk down to you: Never Threaten you with harm: Never Physically hurt you: Never In the past 12 months, how often did a current or former intimate partner force or pressure you to have sexual co ntact against your will, or when you were unable to say no? Never PRIMARY SCREEN RESULTS: The individual denied all forms of IPV above (i .e., answered never to all 5 items above). ??The [employer] tool is [place] copyright protected by Primo Ponce MD, and the user has full rights to use it throughout the [employer] system. DISPOSITION: Individual declined accepting information or re sources. Tobacco Use Screening: The patient is a former tobacco user. The patient quit fifteen or more years ago. Alcohol Use Screen (AUDIT-C): Alcohol Screen: SCREEN FOR ALCOHOL (AUDIT-C) An alcohol screening test (AUDIT-C) was negativ e (score=4). 1. How often did you have a drink containing al cohol in the past year? Four or more times a week 2. How many drinks containing alcohol did you h ave on a typical day when you were drinking in the past year? One or two drinks 3. How often did you have six or more drinks on one occasion in the past year? Never /es/ SINDHU Rodney CBOC Signed: 11/05/2021 09:01 11/05/2021 ADDENDUM STATUS: UNSIGNED You may not VIEW this UNSIGNED Addendum. 11/05/2021 ADDENDUM STATUS: COMPLETED COVID-19 Immunization: Moderna COVID-19 Vaccine given previously Patient received a prior dose of the Moderna CO VID-19 Vaccine. Date: August 19, 2021 Series: Series 4 Location: [facility] [place] /es/ SINDHU Rodney CBOC Signed: 11/05/2021 09:32 Nov 05, 2021 08:37 AM PRIMARY CARE ATTENDING NOTE: GRACIELA ENRIQUEZ [facility] LOCAL TITLE: PRIMARY CARE ATTENDING NOTE STANDARD TITLE: PRIMARY CARE ATTENDING NOTE DATE OF NOTE: NOV 05, 2021@08:37 ENTRY DATE: NOV 05, 2021@08:37:18 AUTHOR: GRACIELA ENRIQUEZ EXP COSIGNER: URGENCY: STATUS: COMPLETED KHURRAM CORNEJO DONNA [id number] HISTORY OF PRESENT ILLNESS: 71 MALE seen for delvin ual exam. Khurram mentions increased d ifficulty with urination since stopping finasteride. See urology notes Apr - finasteride stopped and dizziness improved. Gradually Khurram has had in creased nocturia (now 2-4 times per night), weakened stream, feeling like he can't urinate after certain beverages (wine, certain types of beer). Next urology followup December. Khurram is otherwise feeling fairly well. He not iced a black discoloration under his left great toe. He doesn't recall bump ing or injuring it. Khurram does have a prior hi story of malignant melanoma s/p excision from right shoulder. He has not had full derm skin exam or followup in quite some time. PAST MEDICAL HISTORY: 1. History of cardiac catheterization ACTIVE cardiac cath LM-NL/LAD-luminal irreg/LCX-lumina l irreg/RCA-luminal irregularity/ramus - normal/ EF 65%/ED 20 2. Impaired fasting glucose ACTIVE 3. H/O: osteoarthritis ACTIVE 4. Elevated PSA (SNOMED CT [id number]) ACTIVE 5. Adenomatous polyp of colon (SNOMED CT 403499 006) ACTIVE tubular adenomas, 2013 colonosc 2015 - next due 2017 6. H/O Malignant melanoma (SNOMED CT 297326517) ACTIVE right shoulder 7. Benign prostatic hyperplasia (SNOMED CT 2665 35754) ACTIVE 8. Tobacco dependence in remission ACTIVE MEDICATIONS: Active Outpatient Medications (incl uding Supplies): Active Non-VA Medications Status 1) Non-VA ASPIRIN [...] K) 1 ACTIVE TABLET MOUTH EVERY DAY ALLERGIES: PENICILLIN (Jan 08, 2011) PAST SURGICAL HISTORY: hernia, right ankle surgery, hemorrhoid procedur e, right lung hemothorax evacuation SOCIAL HISTORY: quit 2013 1 ppd x 35+ years REVIEW OF SYSTEMS: Positive:see HPI Remaing ROS negative Allergic/Immunologic: PHYSICAL EXAM: see vitals record General: Alert, well oriented, in no acute distr ess. Eyes: pupils equal and reactive, no icterus or i njection Ears,nose: Ears clear. Neck: No thyromegaly or adenopathy Chest: No rhonchi, rales or wheezes. Clear to michelle th bases Cardiovascular: Regular rate, No murmur. Abdomen: soft, nontender, no mass, Normal BS pre sent. Extremities: No edema Skin: ecchymosis under proximal and lateral righ t great toenail Neurologic: No gross neurologic deficits LABS/RADIOLOGY: ASSESSMENT: 1. Health maintenance exam - colon cancer - done at [facility] Apr, 3 polyps, repeat 5 years, prostate cancer screening - disc ontinue age >70, and immunizations discussed. Enc ouraged physical activity and weight management. ASA discussed. Criteria for lung cancer scre ening reviewed - CT due. AAA screening recommendations reviewed - US neg '13. 1. History of cardiac catheterization ACTIVE cardiac cath LM-NL/LAD-luminal irreg/LCX-lumina l irreg/RCA-luminal irregularity/ramus - normal/ EF 65%/ED 20 2. Impaired fasting glucose ACTIVE lab pending 3. H/O: osteoarthritis ACTIVE 4. Elevated PSA (SNOMED CT 609390171) ACTIVE 6. H/O Malignant melanoma (SNOMED CT [id number]) ACTIVE right shoulder - recommended dermatology follow up for surveillance 7. Benign prostatic hyperplasia (SNOMED CT 4622 67491) ACTIVE see below 8. Tobacco dependence in remission ACTIVE Subungal hematoma - mild, asymptomatic PLANS: 1. lab today 2. increase tamsulosin (flomax) to 2 capsules (0 .8mg) nightly for bladder emptying and prostate - urology to followup in S eptember 3. CT for lung cancer screen - [facility] Han clarke 4. dermatology referral for melanoma surveillanc e 5. 1 year [facility] app[facility] CLINICAL REMINDERS: /es/ Graciela Enriquez MD Provider, Claudine CB Signed: 11/06/2021 07:19
--- OUTSIDE RECORDS SUMMARY | 2022-02-07 12:09 | XMS_ITS | Encounter Summary ---
:1950 Author Organization [facility] Address [address] [place] [address] Support Name Relationship Address Phone USHA CORNEJO Unavailable [address] [place] [address] USHA CORNEJO Unavailable [address] [place] [address] Insurance Providers: All historical and current Section [...] Haji [place] Apr 05, [id number],W P ATIENT SUPPLEMEN ARE 2018 09 [id number] [phone] ILLARD LIU SUPPL 1A EMENT [place] [place] Apr 05, [id number], W [facility] [place] SUPPLEMEN ARE 2018 09 [id number] [phone] ILLARD LIU SUPPL 1A EMENT [employer] [place] MEDIC Oct 03, [id number] [address], W [facility] [place] SUPPLEMEN ARE [phone] ILLARD LIU SUPPL EMENT MEDICARE MEDICARE PART Oct 03, PART A [id number] [address],W P ATIENT (WNR) (M) A 2013 EV03 [phone] ILLARD MEDICARE MEDICARE PART Oct 03, PART B [id number] [address],W P ATIENT (WNR) (M) B 2013 EV03 [phone] [place] MEDICARE MEDICARE PART Oct 03, PART A [id number] [address],W P ATIENT (WNR) (M) A 2013 EV03 [phone] I[place] MEDICARE MEDICARE PART Oct 03, PART B [id number] 800 Layla CORNEJO ATIENT (WNR) (M) B [id number] [facility] MEDICARE MEDIC Apr 05, [id number] Layla MARTÍNEZ [place] [facility] [place] [facility] [place] 2018 09 [id number] 1 AMOS [place] SUPPL 1A EMENT Selected Encounter This section includes the information on record at [place] for the Encounter. Date/Time Encounter Type Encounter Reason Provider Source Description Dec 24, 2021 IMMUNIZATION PRIMARY ICD-10-CM Z23 MIGUELITO FLORES 01:26 PM ADMIN CARE/MEDICINE Encounter for N immunization with Provider Comments: Encounter for Immunization IHE Encounter Template Text not used by [facility] Assessments - Encounter Diagnoses This section includes the primary and secondary diagnoses documented for the Encounter. Date/Time Primary/Secondary Diagnosis Name Provider Source Diagnosis Dec 24, 2021 PRIMARY Encounter for MIGUELITO FLORES [facility] 01:27 PM immunization CLINIC Plan of Treatment: Future Appointments (+ 6 months) and Future Tests (+/- 45 days) The Plan of Treatment section includes future care activities for the patient from all [place] treatmentfacilities. This section includes future appointments and future orders which are active, pending orscheduled.Future Appointments This section includes appointments that were scheduled to occur 6 months from the date of the Encounter, up to a maximum of 20 appointments. The data comes from all [place] treatment facilities. Appointment Date/Time Appointment Type Appointment Facili ty Name Dec 25, 2021 10:30 AM [facility] SURGERY [facility] Dec 25, 2021 11:30 AM AMBULATORY - MEDICINE [facility] Feb 19, 2022 09:00 AM AMBULATORY - MEDICINE [facility] Feb 20, 2022 07:30 AM AMBULATORY - [facility] Lab Results: +/- 30 days of the encounter This section includes the Chemistry and Hematology Lab Results on record with [place] for the patient. Radiology Reports and Pathology Reports are provided separately, in subsequent sections.Lab Results This section contains the Chemistry/Hematology Results that were resulted 30 days before or 30 daysafter the date of the Encounter. Date/Time Source Result Type Result - Unit Interpretation Reference Range Comment Dec 22, 2021 08:49 [facility] PROSTATE SPECIFIC Specimen T ype: SERUM AM [...] 25, 2020 10:29 AM Reporting Lab: [facility] [address] [place] [address] Performing Lab: [facility] [address] [place] [address] PROSTATE SPECIFIC ANTIGEN 17.59 H 0-4 Dec 22, 2021 08:49 [facility] URINALYSIS Specimen Typ e: URINE AM Comment: Patien ts with asymptomatic bacteriuria/funguria/pyuria without UTI symptoms usually do not require treatment with an antimicrobial agent. Ordering Provid er: MALINA BURK Report Released Date/Time: Dec 25, 2020 10:29 AM Reporting Lab: [facility] [address] [place] [address] Performing Lab: [facility] [address] [place] [address] SPECIFIC GRAVITY 1.012 1.000-1.030 URINE KETONES Neg Neg-Trace URINE GLUCOSE Neg Neg-Trace URINE PROTEIN Neg Neg-Trace URINE PH 5.5 5.0-8.0 URINE WBC/HPF 4-7 0-7 URINE BACTERIA 1+ URINE RBC/HPF 8-20 H 0-3 URINE BLOOD 2+ Neg-Trace NITRITE, URINE Neg Neg LEUKOCYTE ESTERASE Trace Neg-Trace URINE MICROSCOPIC YES Immunizations: All administered on the encounter date This section contains immunizations associated to the Encounter. Immunization Series Date Issued Reaction Comments INFLUENZA VACCINE, QUADRIVALENT, ADJUVANTED Dec 24 Social History: Smoking Status (Most current) and Tobacco Use (All prior to encounter date) This section includes the most current, and the historical, smoking and tobacco-related health factors from the [facility] where the Encounter took place.Current Smoking Status This section includes the most current smoking, or tobacco-related health factor, from the [place] facility where the Encounter took place. Date/Time Current Smoking Status Comment Facility Nov 05, 2021 09:00 AM VA-TOBACCO FORMER USER [facility] Tobacco Use History This section includes a history of the smoking, or tobacco- related health factors, that were collected on or before the date of the Encounter. The data comes from the [place] facility where the Encounter took place. Date/Time Smoking Status/Tobacco Use Comment Facil ity Nov 05, 2021 09:00 AM AR-TOBACCO QUIT 15 YRS OR MORE [facility] Oct 24, 2020 08:30 AM VA-TOBACCO FORMER USER [facility] Oct 24, 2020 08:30 AM VA-TOBACCO QUIT 5 TO < 15 YRS [facility] Nov 21, 2019 09:00 AM VA-TOBACCO FORMER USER [facility] Nov 21, 2019 09:00 AM AR-TOBACCO QUIT 5 TO < 15 YRS [facility] Dec 15, 2017 04:23 PM LIFETIME NON-TOBACCO USER [facility] Mar 03, 2017 08:30 AM FORMER TOBACCO USE >1Y <7Y [facility] Radiology Reports: +/- 30 days of the [...] the Encounter. The data comes from all [place] treatment facilities. Date/Time Radiology Report Provider Source Dec 25, 2021 11:[address] CHEST W/O CONTRAST: STEPHON MCKNIGHT [facility] AMY CORNEJO [facility] [id number] -OCT 18 194 9 M Exm Date: DEC 25, 2021@11:23 Req Phys: AUGUSTINE ENRIQUEZ Pat Loc: [facility] PACT TEA M 2 (Req'g Loc) Img Loc: OOS CT SCAN Service: Unknown (Case [id number] COMPLETE) CT CHEST W/O CONTRAST (CT De tailed) CPT:64340 Reason for Study: tobacco use, lung cancer scre en Clinical History: Coordinate with: Urology Please contact the ordering provider at Ext. na or pager for critical results. Imaging Status Past 90 Days: No data available Report Status: Verified Date Reported: DEC 25, 2021 Date Verified: DEC 25, 2021 Floor Runner E-Sig:/ES/Stephon Mcknight MD Report: EXAMINATION: CT chest [...] Primary Interpreting Staff: Stephon Mcknight MD, Radiologist [facility] (Teofilo ifier) /JACI Pathology Reports: +/- 30 days of the [...] the Encounter. The data comes from all [place] treatment facilities. Date/Time Pathology Report Provider Source Dec 22, 2021 08:49 AM LR MICROBIOLOGY REPORT: [facility] Accession [UID]: [id number] [[id number]] Receive d: Dec 23, 2021@07:51 Collection sample: URINE Collection date: Dec 08:49 Provider: MALIAN BURK Test(s) ordered: CULT, URINE ................. completed: Dec 25, 2021 10:39 * BACTERIOLOGY FINAL REPORT => Dec 25, 2021 10:5 4 TECH CODE: [id number] CULTURE RESULTS: PSEUDOMONAS AERUGINOSA - Quanti ty: 70,000 CFU/mL ANTIBIOTIC SUSCEPTIBILITY TEST RESULTS: PSEUDOMONAS AERUGINOSA : SUSC INTP GENTAMICIN.................... <=1 S CIPROFLOXACIN................. S S CEFTAZIDIME................... 4 S TOBRAMYCIN.................... <=1 S IMIPENEM (GR NEG)............. 1 S PIPER/TAZO.................... 8 S LEVOFLOXACIN(GN).............. I I =--=--=--=--=--=--=--=--=--=--=--=--=--= --=--=--=--=--=--=--=--=--=--=--=--=-- Performing Laboratory: Bacteriology Report Performed By: [facility] [CLIA# [id number]] [address] [place] [address] Encounter Notes: All associated encounter notes This section contains the clinical notes associated to the Encounter. Date/Time Encounter Note(s) Provider Source Dec 24, 2021 01:26 PM IMMUNIZATION NOTE: MIGUELITO FLROES [facility] LOCAL TITLE: Outpatient Influenza Nursing Note STANDARD TITLE: IMMUNIZATION NOTE DATE OF NOTE: DEC 24, 2021@13:26 ENTRY DATE: DEC 24, 2021@13:26:32 AUTHOR: MIGUELITO FLORES EXP COSIGNER: URGENCY: STATUS: COMPLETED The patient was given the influenza VIS which li sts the benefits and side effects of the vaccine and which reviews the ris ks of not receiving the flu vaccine. The VIS was reviewed with the patient a nd they were given an opportunity to ask questions. The patient was pr ovided education on how to decrease the risk of influen za infection including social distancing and use of good hand hygiene. The patient denied any prior severe reaction to the flu vaccine or its components. The patient gave verb al consent to receive the vaccine. The seasonal influenza vaccine VIS given to the patient: VIS version date Nov. The patient received seasonal influenza vaccine today - Influenza, Quadrivalent, Adjuvanted (Fluad) 0.5 ml IM toda y in Left Deltoid. 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 08/11/2022 Administered by protocol/policy Complications: None /es/ MIGUELITO FLORES LPN LICENSED PRACTICAL NURSE, YURI IZAGUIRRE Signed: 12/24/2021 13:27
--- OUTSIDE RECORDS SUMMARY | 2022-02-07 12:09 | XMS_ITS | Encounter Summary ---
:1950 Author Organization [facility] Address [address] [place] [address] Support Name Relationship Address Phone USHA CORNEJO Unavailable [address] [place] [address] USHA CORNEJO Unavailable [address] [place] [address] Insurance Providers: All historical and current Section [...] [place] Apr 05, [id number],W P ATIENT SUPPLEMEN ARE 2018 09 [id number] [phone] ILLARD LIU SUPPL 1A EMENT [place] Apr 05, [id number], W [facility] SUPPLEMEN ARE 2018 09 [id number] [phone] ILLARD LIU SUPPL 1A EMENT [employer] [place] Oct 03, [id number] [address], W [facility] SUPPLEMEN ARE [phone] ILLARD LIU SUPPL EMENT MEDICARE MEDICARE PART Oct 03, PART A [id number] [address],W P ATIENT (WNR) (M) A 2013 EV03 [phone] ILLARD MEDICARE MEDICARE PART Oct 03, PART B [id number] [address],W P ATIENT (WNR) (M) B 2013 EV03 [phone] [place] MEDICARE MEDICARE PART Oct 03, PART A [id number] [address],W P ATIENT (WNR) (M) A 2013 EV03 [phone] AMOS MEDICARE MEDICARE PART Oct 03, PART B [id number] 800 Layla CORNEJO (WNR) (M) B 2013 EV03 [phone] AMOS [place] MED[place] MEDIC Apr 05, [id number] Layla MARTÍNEZ PATIENT OF [facility] ARE 2018 09 [id number] 1 AMOS [place] SUPPL 1A EMENT Selected Encounter This section includes the information on record at [place] for the Encounter. Date/Time Encounter Type Encounter Description Reason Provider Source Sep 23, 2021 09:37 Outpatient Encounter ADMIN PAT ACTIVTIES AM (MASNONCT) IHE Encounter Template Text not used by [place] Plan of Treatment: Future Appointments (+ 6 months) and Future Tests (+/- 45 days) The Plan of Treatment section includes future care activities for the patient from all [place] [facility] This section includes future appointments and future orders which are active, pending orscheduled.Future Appointments This section includes appointments that were scheduled to occur 6 months from the date of the Encounter, up to a maximum of 20 appointments. The data comes from all [place] treatment [facility]. Appointment Date/Time Appointment Type Appointment Facili ty Name Nov 05, 2021 08:30 AM [facility] Nov 05, 2021 09:00 AM [facility] Nov 05, 2021 09:30 AM AM[facility]ULATORY MEDICINE [facility] Dec 22, 2021 09:00 AM AMBULATORY [facility] Dec 22, 2021 09:30 AM AMBULATORY MEDICINE [facility] Dec 25, 2021 10:30 AM AMBULATORY SURGERY [facility] Dec 25, 2021 11:[address] [facility] Feb 19, 2022 09:00 AM AMBULATORY MEDICINE [facility] Feb 20, 2022 07:30 AM [facility] Active, Pending, and Scheduled Orders This section includes a listing of several types of active, pending, and scheduled orders, including clinic medications orders, diagnostic test orders, procedure orders and consult orders; where the start date of the order is 45 days before the date of the Encounter or 45 days after the date of the Encounter. The data comes from all [place] treatment facilities. 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 Date/Time Current Smoking Status Comment Facility Oct 24, 2020 08:30 AM VA-TOBACCO FORMER USER [facility] Tobacco Use History This section includes a history of the smoking, or tobacco- related health factors, that were collected on or before the date of the Encounter. The data comes from the [facility] where the Encounter took place. Date/Time Smoking Status/Tobacco Use Comment [facility] Oct 24, 2020 08:30 AM [place]-TOBACCO QUIT 5 TO < 15 YRS [facility] Nov 21, 2019 09:00 AM VA-TOBACCO FORMER USER [facility] Nov 21, 2019 09:00 AM VA-TOBACCO QUIT 5 TO < 15 YRS [facility] Dec 15, 2017 04:23 PM LIFETIME NON-TOBACCO USER [facility] Mar 03, 2017 08:30 AM FORMER TOBACCO USE >1Y <7Y [facility] Encounter Notes: All associated encounter notes This section contains the clinical notes associated to the Encounter. Date/Time Encounter Note(s) Provider Source Sep 23, 2021 09:38 AM PRIMARY CARE LETTERS: JEROME CANNON [facility] LOCAL TITLE: SCHEDULING ATTEMPT LETTER STANDARD TITLE: PRIMARY CARE LETTERS DATE OF NOTE: SEP 23, 2021@09:38 ENTRY DATE: SEP 23, 2021@09:38:43 AUTHOR: JEROME CANNON EXP COSIGNER: URGENCY: STATUS: COMPLETED [facility] [address] [facility] [place] [address] AMY CORNEJO [address] [facility] [address] [place]: SEP 23, 2021 We have attempted to contact you via telephone t o schedule an appointment with [facility] but have been unsuccessfu l in reaching you. Please contact our scheduling staff at [phone] as soon as possible. We are available Wednesday-Wednesday from 8:00 am to 4 :00 pm to take your call. Please respond within the next 14 days. If you h ave already made your appointment, disregard this letter. We look forward to hearing from you soon. Sincerely, [facility] Health Care Staff Sep 23, 2021 09:37 AM ADMINISTRATIVE NOTE: JEROME CANNON [facility] LOCAL TITLE: ADMINISTRATIVE NOTE: PHONE ATTEMPT STANDARD TITLE: ADMINISTRATIVE NOTE DATE OF NOTE: SEP 23, 2021@09:37 ENTRY DATE: SEP 23, 2021@09:37:10 AUTHOR: JEROME CANNON EXP COSIGNER: URGENCY: STATUS: COMPLETED There was a phone attempt to schedule an appoint ment for [facility] The outcome of this attempted phone contact: [facility]: Sep Please provide comments/details: PID10/19/21 PER RTC 1 YEAR [place] APPOINTMENT w/ [facility] PACT TEAM 2-Left message to schedule /jamil/ JENNIFER Lincoln Advanced Education General Manager,[place] CBO C Signed: 09/23/2021 09:38
--- OUTSIDE RECORDS SUMMARY | 2022-02-07 12:09 | XMS_ITS | Encounter Summary ---
:1950 Author Organization [facility] Address [address] [place] [address] Support Name Relationship Address Phone USHA CORNEJO Unavailable [address] [place] [address] USHA CORNEJO Unavailable [address] [place] [address] Insurance Providers: All historical and current Section [...] Haji [place] Apr 05, [id number],W P ATIENT SUPPLEMEN ARE 2018 09 [id number] [phone] ILLARD LIU SUPPL 1A EMENT [place] Apr 05, [id number], W [facility] SUPPLEMEN ARE [id number] [phone] ILLARD LIU SUPPL 1A EMENT [place] Oct 03, [id number] [address], [address] [facility] SUPPLEMEN ARE [phone] ILLARD LIU SUPPL EMENT MEDICARE MEDICARE PART Oct 03, PART A [id number] [address],W P ATIENT (WNR) (M) A 2013 EV03 [phone] [facility] Oct 03, PART B [id number] [address],W P ATIENT (WNR) (M) B 2013 EV03 [phone] [facility] Oct 03, PART A [id number] [address],W P ATIENT (WNR) (M) A 2013 EV03 [phone] AM[facility] MEDICARE MEDICARE PART Oct 03, PART B [id number] [address] P ATIENT (WNR) (M) B 2013 EV03 [phone] [facility] [place] MED[place] MEDIC Apr 05, [id number] [phone] Layla MARTÍNEZ PATIENT OF [facility] ARE 2018 09 [id number] 1 AMOS [place] SUPPL 1A EMENT Selected Encounter This section includes the information on record at [place] for the Encounter. Date/Time Encounter Type Encounter Reason Provider Source Description Dec 22, 2021 OFFICE O/P EST PRIMARY ICD-10-CM N39.0 AUGUSTINE GUTIÉRREZ 09:30 AM MINIMAL PROB CARE/MEDICINE Urinary tract infection, site not specified with Provider Comments: Urinary tract infection, site not specified IHE Encounter Template Text not used by [place] Assessments - Encounter Diagnoses This section includes the primary and secondary diagnoses documented for the Encounter. Date/Time Primary/Secondary Diagnosis Name Provider Source Diagnosis Dec 22, 2021 PRIMARY Urinary tract AUGUSTINE GUTIÉRREZ [facility] 11:13 AM infection, site CLINIC not specified Plan of Treatment: Future Appointments (+ 6 [...] ty Name Dec 25, 2021 10:30 AM AMBULATORY - SURGERY [facility] Dec 25, 2021 11:30 AM AMBULATORY - MEDICINE [facility] Feb 19, 2022 09:00 AM AMBULATORY MEDICINE [facility] Feb 20, 2022 07:30 AM AMBULATORY [facility] Lab Results: +/- 30 days of the [...] Reference Range Comment Dec 22, 2021 08:49 [facility] PROSTATE SPECIFIC Specimen T ype: [...] Dec 25, 2020 10:29 AM Reporting Lab: [facility] [address] [place] [address] Performing Lab: [facility] [address] [facility] [place] [address] PROSTATE SPECIFIC ANTIGEN 17.59 H 0-4 Dec 22, 2021 08:49 [facility] URINALYSIS Specimen Typ e: URINE AM Comment: Patien ts with asymptomatic bacteriuria/funguria/pyuria without UTI symptoms usually do not require treatment with an antimicrobial agent. Ordering Provid er: MALINA BURK Report Released Date/Time: Dec 25, 2020 10:29 AM Reporting Lab: [facility] [address] [place] [address] Performing Lab: [facility] [address] [facility] [place] [address] SPECIFIC GRAVITY 1.012 1.000-1.030 URINE KETONES Neg [...] dy Source Pressure Rate Mass Index Dec 222021 11:02 [facility] Dec 22 97.9 F 79 112/72 18 /min 95 % 2021 10:00 /min mm[Hg] [facility] Social History: Smoking Status (Most current) and Tobacco Use (All prior to encounter date) This section includes the most current, and the historical, smoking and tobacco-related health factors from the [facility] where the Encounter took place.Current Smoking Status This section includes the most current smoking, or tobacco-related health factor, from the [facility] where the Encounter took place. Date/Time Current Smoking Status Comment Facility Nov 05, 2021 09:00 AM VA-TOBACCO FORMER USER [facility] Tobacco Use History This section includes a history of the smoking, or tobacco- related health factors, that were collected on or before the date of the Encounter. The data comes from the [facility] where the Encounter took place. Date/Time Smoking Status/Tobacco Use Comment [facility] it Nov 05, 2021 09:00 AM AR-TOBACCO QUIT 15 YRS OR MORE [facility] Oct 24, 2020 08:30 AM VA-TOBACCO FORMER USER [facility] Oct 24, 2020 08:30 AM VA-TOBACCO QUIT 5 TO < 15 YRS [facility] Nov 21, 2019 09:00 AM VA-TOBACCO FORMER USER [facility] Nov 21, 2019 09:00 AM AR-TOBACCO QUIT 5 TO < 15 YRS [facility] Dec 15, 2017 04:23 PM LIFETIME NON-TOBACCO USER [facility] Mar 03, 2017 08:30 AM FORMER TOBACCO USE >1Y <7Y [facility] Radiology Reports: +/- 30 days of the [...] AM CT CHEST W/O CONTRAST: STEPHON MCKNIGHT [facility] AMY CORNEJO DONNA [id number] -OCT 18 9 M Exm Date: DEC 25, 2021@11:23 Req Phys: AUGUSTINE DOBBINS Pat Loc: [facility] PACT TEA M 2 (Req'g Loc) Img Loc: OOS CT SCAN Service: Unknown (Case [id number] COMPLETE) CT CHEST W/O CONTRAST (CT De tailed) CPT:64967 Reason for Study: tobacco use, lung cancer scre en Clinical History: Coordinate with: Urology Please contact the ordering provider at Ext. na or pager for critical results. Imaging Status Past 90 Days: No data available Report Status: Verified Date Reported: DEC 25, 2021 Date Verified: DEC 25, 2021 Director Food Safety E-Sig:/ES/Stephon Mcknight MD Report: EXAMINATION: CT chest [...] Primary Interpreting Staff: Stephon Mcknight MD, Radiologist [facility] (Teofilo ifier) /Kunal Pathology Reports: +/- 30 days of the [...] 22, 2021 08:49 AM LR MICROBIOLOGY REPORT: MANDEEP MAN [facility] Accession [UID]: [id number] [[id number]] Receive d: Dec 23, 2021@07:51 Collection sample: URINE Collection date: Dec 08:49 Provider: MALINA BURK Test(s) ordered: CULT, URINE ................. completed: Dec 25, 2021 10:39 * BACTERIOLOGY FINAL REPORT => Dec 25, 2021 10:5 4 TECH CODE: [id number] CULTURE RESULTS: PSEUDOMONAS AERUGINOSA - Quanti ty: 70,000 CFU/mL ANTIBIOTIC SUSCEPTIBILITY TEST RESULTS: PSEUDOMONAS AERUGINOSA : SUSC INTP GENTAMICIN.................... <=1 S CIPROFLOXACIN................. S S CEFTAZIDIME................... 4 S TOBRAMYCIN.................... <=1 S IMIPENEM (GR NEG)............. 1 S PIPER/TAZO.................... 8 S LEVOFLOXACIN(GN).............. I I =--=--=--=--=--=--=--=--=--=--=--=--=--= --=--=--=--=--=--=--=--=--=--=--=--=-- Performing Laboratory: Bacteriology Report Performed By: [facility] [CLIA# [id number]] [address] [facility] [place] [address] Encounter Notes: All associated encounter notes This section contains the clinical notes associated to the Encounter. Date/Time Encounter Note(s) Provider Source Dec 22, 2021 11:45 AM NURSING NOTE: AUGUSTINE GUTIÉRREZ [facility] LOCAL TITLE: NURSING MEDS/TMNTS STANDARD TITLE: NURSING NOTE DATE OF NOTE: DEC 22, 2021@11:45 ENTRY DATE: DEC 22, 2021@11:45:45 AUTHOR: AUGUSTINE GUTIÉRREZ EXP COSIGNER: URGENCY: STATUS: COMPLETED Yoo catheter removed without incident. 23mls was in the catheter balloon. Patient tolerated procedure well. 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 Signed: 12/22/2021 11:46 Dec 22, 2021 10:56 AM NURSING NOTE: AUGUSTINE GUTIÉRREZ [facility] LOCAL TITLE: UNSCHEDULED NURSING NOTE STANDARD TITLE: NURSING NOTE DATE OF NOTE: DEC 22, 2021@10:56 ENTRY DATE: DEC 22, 2021@10:56:39 AUTHOR: AUGUSTINE GUTIÉRREZ EXP COSIGNER: URGENCY: STATUS: COMPLETED Reason for visit: [place] zachery lutz in [facility] on 12/14/21 when he began to have severe bladder spasms with fever, sweats , and chills. He reports going the the ER there where after doing a n US of the bladder they placed a yoo and started him on Cephelexin 500mg po TID x 10 days. He den ies that he had had any difficulty starting his urin annemarie stream when he went into the ER. Records are not available on [facility]. Since that time his fever has resolved and the spasms have occured less however still happen. W hen he has them he will get leaking of urine between the catheter and urethr a. Yesterday he noticed blood in his urine: he did not have any clots but the bag got red.Today his urine is clear and light straw colored. No mucous or clots. Duration: 1 report of blood in yoo yesterday. Yoo in x 1 week. Prior treatment/home remedies: none Assessment: VSS Afebrile. Color pink warm dry. Gait stable and steady. Yoo patent returning clear light straw colored urine. No leaking, redness, swelling, ,or bleeding note d around the meatus. Nursing treatments: UA obtained per Urology order. Report given to Dr. Dobbins. Order to remove the Yoo is received . ABUSE SCREENING: Do you have any concerns about feeling safe, neg lected or abused? No reported concerns. Are you having or have you had thoughts of harmi ng yourself in the last 12 months? No WOMEN's HEALTH: PATIENT is EXCLUDED from the [...] PSYLLIUM SF ORAL PWD 1 TEASPOONFUL JAMIE ACTIVE NEEDED 5) Non-VA ZZMULTIVIT W/MINERALS TAB (WITH VIT K) 1 ACTIVE TABLET MOUTH EVERY DAY 7 Total Medications Medication review for medication reconciliation done. No changes noted. Non-VA Medication Discrepancies Identified: on antibiotics as listed above Provider notified. PAIN ASSESSMENT: Pain Screening: Patient's last recorded pain score: 2 (11/06/19 08:56) Does patient have pain?: Yes Patient pain rating. 7 Has ongoing problems with pain?:No Is on pain control medications/treatments?: No Comprehensive Pain Assessment: Origin/Cause of pain: Comment: UTI Location of pain: Comment: pelvic: bladder spasm Quality: Describe the pain. Comment: Sharp, Intermittent Pain Goal: 0 Patient provided information on management of p ain. * Report pain and describe how the pain feels. * Pain will be scored on a 0-10 scale, with 10 the worst. * Don't wait to report or treat your pain. Pain medication works best and can better manage the pain befor e it becomes severe. * A treatment plan will be developed by you and your care team in the management of your pain. Patient understanding of education. Comment: Verbalized Understanding PLAN OF CARE: Assessment : Reported UTI on 12/14/21: Finishing up 10 day sup ply of antibiotics. Yoo in place returning clear light colored str aw urine. Afebrile. VSS. Conferred with Dr. Dobbins. Order to remove yoo received. PLAN: 1. Yoo removed without incident. 2. Drink enough liquids to keep urine light stra w colored to clear. 3. Keep appointment with urology on 12/25/21. Brett l the clinic if you have any concerns prior to that time. 4. Finish antibiotic meds. and his voice understanding and agr eement with this plan. 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
--- OUTSIDE RECORDS SUMMARY | 2022-02-07 12:09 | XMS_ITS | Encounter Summary ---
:1950 Author Organization Department [facility] Address [address] [place] [address] Support Name Relationship Address Phone USHA CORNEJO Unavailable [address] [place] [address] USHA CORNEJO Unavailable [address] [place] [address] Insurance Providers: All historical and current Section [...] [place] Apr 05, [id number],W P ATIENT SUPPLEMEN ARE 2018 09 [id number] [phone] ILLARD LIU SUPPL 1A EMENT [place] Apr 05, [id number], W [facility] SUPPLEMEN ARE 2018 09 [id number] [phone] ILLARD LIU SUPPL 1A EMENT [place] Oct 03, [id number], W [facility] SUPPLEMEN ARE [phone] ILLARD LIU SUPPL EMENT MEDICARE MEDICARE PART Oct 03, PART A [id number] [address],W P ATIENT (WNR) (M) A 2013 EV03 [phone] ILLARD MEDICARE MEDICARE PART Oct 03, PART B [id number] [address],W P ATIENT (WNR) (M) B 2013 EV03 [phone] ILLARD MEDICARE MEDICARE PART Oct 03, PART A [id number] [address],W P ATIENT (WNR) (M) A 2013 EV03 [phone] AMOS MEDICARE MEDICARE PART Oct 03, PART B [id number] 800 Layla CORNEJO (WNR) (M) B 2013 EV03 [phone] [facility] [place] MEDICARE MEDIC Apr 05, [id number] Layla MARTÍNEZ PATIENT OF [facility] ARE 2018 09 [id number] 1 AMOS [place] SUPPL 1A EMENT Selected Encounter This section includes the information on record at [place] for the Encounter. Date/Time Encounter Type Encounter Description Reason Provider Source Oct 23, 2021 09:13 Outpatient Encounter ADMIN PAT ACTIVTIES AM (MASNONCT) IHE Encounter Template Text not used by [place] Plan of Treatment: Future Appointments (+ 6 months) and Future Tests (+/- 45 days) The Plan of Treatment section includes future care activities for the patient from [facility] This section includes future appointments and future orders which are active, pending orscheduled.Future Appointments This section includes appointments that were scheduled to occur 6 months from the date of the Encounter, up to a maximum of 20 appointments. The data comes from all [place] treatment [facility]. Appointment Date/Time Appointment Type Appointment Facili ty Name Nov 05, 2021 08:[address] [facility] Nov 05, 2021 09:00 AM [facility] Nov 05, 2021 09:30 AM AMBULATORY MEDICINE [facility] Dec 22, 2021 09:00 AM AMBULATORY [facility] Dec 22, 2021 09:30 AM AMBULATORY MEDICINE [facility] Dec 25, 2021 10:30 AM AMBULATORY SURGERY [facility] Dec 25, 2021 11:30 AM AMBULATORY [facility] Feb 19, 2022 09:00 AM AMBULATORY MEDICINE [facility] Feb 20, 2022 07:30 AM [facility] Active, Pending, and Scheduled Orders This section includes a listing of several types of active, pending, and scheduled orders, including clinic medications orders, diagnostic test orders, procedure orders and consult orders; where the start date of the order is 45 days before the date of the Encounter or 45 days after the date of the Encounter. The data comes from all [place] treatment facilities. Test Date/Time Test Type Test Details Facility Name Nov 06, 2021 07:21 AM Consult Order [facility]-DERMATOLOGY [facility] Cons Gum Remover's Choice Lab Results: +/- 30 days of the encounter This section includes the Chemistry and Hematology Lab Results on record with [place] for the patient. Radiology Reports and Pathology Reports are provided separately, in subsequent sections.Lab Results This section contains the Chemistry/Hematology Results that were resulted 30 days before or 30 daysafter the date of the Encounter. Date/Time Source Result Type Result - Unit Interpretation Reference Range Comment Nov 05, 2021 09:26 [facility] HEMOGLOBIN A1C Specimen Type: BLOOD AM Comment: Target A1C values should be individualized. Better understanding of A1C test result accuracy is essential if clinicians are to interpret results for Veterans, and discuss treatment options thr ough the process of Shared Decision Making. Providers may contact the Laboratory for performance characteristics of this assay. Ordering Provid er: AUGUSTINE ENRIQUEZ Report Released Date/Time: Nov 05, 2021 08:42 AM Reporting Lab: [facility] [address] [place] [address] Performing Lab: [facility] [address] [place] [address] HEMOGLOBIN A1C 5.6 4.0-6.0 Nov 05, 2021 [facility] LIPID PROFILE, Specimen Ty pe: PLASMA 09:26 [...] Nov 05, 2021 08:42 AM Reporting Lab: [facility] [address] [place] [address] Performing Lab: [facility] [address] [place] [address] CHOLESTEROL 128 SEE COMMENTS TRIGLYCERIDE 59 0-150 HDL 59 SEE COMMENTS LDL MEASURED 61 SEE COMMENTS VLDL CALCULATION 12 5-40 Nov 05, 2021 09:26 AM [facility] CHEM7 Speci men Type: PLASMA Comment: CHOLES TEROL comments: Desirable: <200 mg/dL Borderline High: 200- [...] Nov 05, 2021 08:42 AM Reporting Lab: [facility] [address] [place] [address] Performing Lab: [facility] [address] [place] [address] CREATININE 1.0 0.7-1.2 UREA NITROGEN 15 8-23 GLUCOSE 108 74-109 SODIUM 140 136-145 POTASSIUM 4.0 3.5-5.0 CHLORIDE 107 98-107 CO2 21 L 22-29 EGFR_CKD_EPI 79.0 >=60 Nov 05, 2021 09:26 AM [facility] CBC+DIFF Speci men Type: BLOOD No comment enter ed. Ordering Provid er: AUGUSTINE ENRIQUEZ Report Released Date/Time: Nov 05, 2021 08:42 AM Reporting Lab: [facility] [address] [place] [address] Performing Lab: [facility] [address] [place] [address] WBC 5.7 4.8-10.8 RBC 4.79 4.5-6.1 HGB [...] ABS 0.0 0-0.07 NRBC % 0.0 0-0.13 Social History: Smoking Status (Most current) and Tobacco Use (All prior to encounter date) This section includes the most current, and the historical, smoking and tobacco-related health factors from the [place] facility where the Encounter took place.Current Smoking Status This section includes the most current smoking, or tobacco-related health factor, from the [place] facility where the Encounter took place. Date/Time Current Smoking Status Comment Facility Oct 24, 2020 08:30 AM VA-TOBACCO FORMER USER [facility] Tobacco Use History This section includes a history of the smoking, or tobacco- related health factors, that were collected on or before the date of the Encounter. The data comes from the [place] facility where the Encounter took place. Date/Time Smoking Status/Tobacco Use Comment [facility] Oct 24, 2020 08:30 AM [place]-TOBACCO QUIT 5 TO < 15 YRS [facility] Nov 21, 2019 09:00 AM VA-TOBACCO FORMER USER [facility] Nov 21, 2019 09:00 AM [place]-TOBACCO QUIT 5 TO < 15 YRS [facility] Dec 15, 2017 04:23 PM LIFETIME NON-TOBACCO USER [facility] Mar 03, 2017 08:30 AM FORMER TOBACCO USE >1Y <7Y [facility] Encounter Notes: All associated encounter notes This section contains the clinical notes associated to the Encounter. Date/Time Encounter Note(s) Provider Source Oct 23, 2021 09:15 AM PRIMARY CARE LETTERS: JEROME CANNON [facility] LOCAL TITLE: SCHEDULING ATTEMPT LETTER STANDARD TITLE: PRIMARY CARE LETTERS DATE OF NOTE: OCT 23, 2021@09:15 ENTRY DATE: OCT 23, 2021@09:15:17 AUTHOR: JEROME CANNON EXP COSIGNER: URGENCY: STATUS: COMPLETED [facility] [address] [facility] [address] AMY CORNEJO [address] [place] [address] Dear : OCT 23, 2021 We have attempted to contact you via telephone t o schedule an appointment with [facility] but have been unsuccessfu l in reaching you. Please contact our scheduling staff at [phone] as soon as possible. We are available Wednesday-Wednesday from 8:00 am to 4 :00 pm to take your call. Please respond within the next 14 days. If you ryan dang already made your appointment, disregard this letter. We look forward to hearing from you soon. Sincerely, [facility] Care Staff Oct 23, 2021 09:13 AM ADMINISTRATIVE NOTE: JEROME CANNON [facility] LOCAL TITLE: ADMINISTRATIVE NOTE: PHONE ATTEMPT STANDARD TITLE: ADMINISTRATIVE NOTE DATE OF NOTE: OCT 23, 2021@09:13 ENTRY DATE: OCT 23, 2021@09:13:53 AUTHOR: JEROME CANNON EXP COSIGNER: URGENCY: STATUS: COMPLETED There was a phone attempt to schedule an appoint ment for [facility] The outcome of this attempted phone contact: [facility]: Oct Please provide comments/details: left message t o reschedule: PID 10/19/21 [facility] PACT TEAM 2/INTAKE/JAMLAB for annual- le ave original PID dates /jamil/ JENNIFER [facility] Advanced Survey Engineer,[employer]angs [employer] C Signed: 10/23/2021 09:15
--- OUTSIDE RECORDS SUMMARY | 2022-02-07 12:10 | XMS_ITS | Encounter Summary ---
:1950 Author Organization [facility] Address [address] [place] [address] Support Name Relationship Address Phone USHA CORNEJO Unavailable [address] [place] [address] USHA CORNEJO Unavailable [address] [place] [address] Insurance Providers: All historical and current Section [...] Haji [place] Apr 05, [id number] [address] P ATIENT SUPPLEMEN ARE 2018 09 [id number] [phone] ILLARD LIU SUPPL 1A EMENT [place] Apr 05, [id number] [address], W [facility] SUPPLEMEN ARE 2018 09 [id number] [phone] ILLARD LIU SUPPL 1A ENT [place] MED[place] Oct 03, [id number] [address], [address] [facility] SUPPLEMEN ARE [phone] ILLARD LIU SUPPL EMENT MEDICARE MEDICARE PART Oct 03, PART A [id number] [address],W P ATIENT (WNR) (M) A 2013 EV03 [phone] ILLARD MEDICARE MEDICARE PART Oct 03, PART B [id number] [address],W P ATIENT (WNR) (M) B 2013 EV03 [phone] I[place] MEDICARE MEDICARE PART Oct 03, PART A [id number] [address],W P ATIENT (WNR) (M) A 2013 EV03 [phone] I[place] MEDICARE MEDICARE PART Oct 03, PART B [id number] 800 CLEMENTELayla (WNR) (M) B 2013 EV03 [phone] AMOS [place] MED[place] MEDIC Apr 05, [id number] [phone] Layla MARTÍNEZ PATIENT OF [facility] ARE 2018 09 [id number] 1 AMOS [place] SUPPL 1A EMENT Selected Encounter This section includes the information on record at [place] for the Encounter. Date/Time Encounter Type Encounter Reason Provider Source Description Mar 05, 2021 Outpatient TELEPHONE TRIAGE ICD-10-CM J06.9 STADUM,ALLYSSA A 11:30 AM Encounter Acute upper respiratory infection, unspecified with Provider Comments: Acute upper Respiratory Infection, unspecified IHE Encounter Template Text not used by [place] Assessments - Encounter Diagnoses This section includes the primary and secondary diagnoses documented for the Encounter. Date/Time Primary/Secondary Diagnosis Name Provider Source Diagnosis Mar 05, 2021 PRIMARY Acute upper STADUM,ALLYSSA A [facility] 11:30 AM respiratory infection, unspecified Mar 05, 2021 SECONDARY Acute bronchitis, STADUM,ALLYSSA A [facility] 11:30 AM unspecified Mar 05, 2021 SECONDARY Nicotine STADUM,ALLYSSA A [facility] 11:30 AM dependence, unspecified, in remission Plan of Treatment: Future Appointments (+ 6 months) and Future Tests (+/- 45 days) The Plan of Treatment section includes future care activities for the patient from all [place] treatmentfacilities. This section includes future appointments and future orders which are active, pending orscheduled.Future Appointments This section includes appointments that were scheduled to occur 6 months from the date of the Encounter, up to a maximum of 20 appointments. The data comes from all [place] treatment facilities. Appointment Date/Time Appointment Type Appointment Facili ty Name Mar 12, 2021 03:30 PM AMBULATORY - MEDICINE [facility] May 21, 2021 02:00 PM AMBULATORY - MEDICINE [facility] May 21, 2021 02:30 PM AMBULATORY - MEDICINE [facility] Lab Results: +/- 30 days of the encounter This section includes the Chemistry and Hematology Lab Results on record with PA for the patient. Radiology Reports and Pathology Reports are provided separately, in subsequent sections.Lab Results This section contains the Chemistry/Hematology Results that were resulted 30 days before or 30 daysafter the date of the Encounter. Date/Time Source Result Type Result - Unit Interpretation Reference Range Comment Mar 04, 2021 12:36 PM [facility] COVID-19 DIAGNOSTIC PANEL Specimen Type: NASOPHARYNX (DIASORIN) Comment: Diasor in (437) This is an emergency use authorized test. Testing performed on the [employer] MDX PCR instrument. Ordering Provid er: ALLYSSA HUMPHRIES Report Released Date/Time: Mar 03, 2021 02:07 PM Reporting Lab: [address] [id number] Performing Lab: [address] [address] COVID-19 (DIASORIN) Negative Negative Social History: Smoking Status (Most current) and Tobacco Use (All prior to encounter date) This section includes the most current, and the historical, smoking and tobacco-related health factors from the [place] facility where the Encounter took place.Current Smoking Status This section includes the most current smoking, or tobacco-related health factor, from the [place] facility where the Encounter took place. Date/Time Current Smoking Status Comment Facility May 07, 2016 08:37 AM FORMER TOBACCO USE >1Y <7Y [facility] Tobacco Use History This section includes a history of the smoking, or tobacco- related health factors, that were collected on or before the date of the Encounter. The data comes from the [place] facility where the Encounter took place. Date/Time Smoking Status/Tobacco Use Comment [facility] Jun 07, 2015 09:01 AM FORMER TOBACCO USE >1Y <7Y [facility] May 10, 2013 08:37 AM CURRENT TOBACCO USER [facility] May 04, 2012 08:46 AM CURRENT TOBACCO USER [facility] Jan 08, 2011 08:48 AM CURRENT TOBACCO USER [facility] Encounter Notes: All associated encounter notes This section contains the clinical notes associated to the Encounter. Date/Time Encounter Note(s) Provider Source Mar 05, 2021 01:09 PM TELEPHONE ENCOUNTER NOTE: ALLYSSA HUMPHRIES [facility] LOCAL TITLE: TELEPHONE CARE PROVIDER NOTE STANDARD TITLE: TELEPHONE ENCOUNTER NOTE DATE OF NOTE: MAR 05, 2021@13:09 ENTRY DATE: MAR 05, 2021@13:09:24 AUTHOR: ALLYSSA HUMPHRIES EXP COSIGNER: URGENCY: STATUS: COMPLETED TELEPHONE CARE PROVIDER NOTE Has ADDENDA * ALLEN CORNEOJARD DONNA 70 MALE [place] was identified using full name and last 4 of SSN PENICILLIN (Jan 08, 2013) Per groundskeeper porter note: I had a COVID test yesterday. Today I am coughing up green mucus and yellow is coming out of my sinuses. I think I am getting a sinus infection. I am wondering about getting an antib iotic over the phone. This is all that is new since Wednesday. (Refer to full groundskeeper porter note for additional inf ormation) call back number: Chief Complaint: Cough Pertinent Clinical History: Tobacco dependence i n remission, Traumatic right pneumo- and hemothorax s/p right thoracoscopy, d rainage, decortication-12/04/20 DC. 70 year old vet c/o worsening productive cough x 2 days that is green colored mucous. States fever ongoing up to 100, ongoing sinus congestion, HERNANDEZ to frontal region, rhinorrhea of yellow colored drainage. Denies sob, chest congestion-has been able to clear-he thinks with coughing, fati christina, body aches, n/v/d, anosmia/ageusia, PND. Nonsmo ker-quit 2013, no environmental allergies. No known exposure to anyone ill. Is retired and has not h ad covid19, has been fully vaccinated with booster x1 month ago. Has only b een using cough drops, warm compresses to sinus regions and robitussin for s /s and states is still recovering from pneumo/hemothorax. Is requesting options as is concerned as drainage from lungs is worsening and from sinus regions. Review of Lab/X-ray/Consults: 03/03/21 [facility] N ote reviewed.05/23 & 06/20/20 Covid vaccines. 12/13/20 PCP letter reviewed-The right lung shows less fluid than your prior images. There is still c onsiderable fluid and consolidation of the right lung with possibly still a slight amou nt of air or pneumothorax. 12/06/20 RN note reviewed. 10/24/20 PCP note review ed. 12/11/20 labs reviewed. Assessment/Diagnosis: Acute Upper Respiratory In fection/Bronchitis. Plan: 1. Plenty of fluids, cough drops prn. 2. Tylenol prn, otc cough/cold medications prn. Declines guaifensen. 3. Saline nasal rinses prn. Warm compresses to sinus regions with gentle massage prn. 4. Alessandro called into [facility] [employer] in [place], [place] and heritage form faxed. 5. Monitor closely for worsening s/s. Covid resu lts still pending. Education/Counseling: Diagnosis/rationale for recommendations was disc ussed with . Call-back instructions: was asked to call back if symptoms do no t improve within ( 2-3 ) days, or if: sob, chest congestion or fevers not controlled. Thank you for the opportunity to care for this v eteran! First call resolution: Yes (x) No () NA () Total time spent degreasing solution mixer was: []5 to 10 min, [x] 17 min, []21 to 30 min [ Note to PACT team: ANUSHKA, PACT RN fol low up call recommended in (2-3 ) days ] /pita Humphries NP Nurse Practitioner [facility] Signed: 03/05/2021 13:22 Receipt Acknowledged By: * AWAITING SIGNATURE * AUGUSTINE ENRIQUEZ 03/05/2021 14:54 /pita Mares RN, MSN, CCCTM for AUGUSTINE GUTIÉRREZ 03/05/2021 ADDENDUM STATUS: COMPLETED [place] notified of negative covid19 results. Ve rbalized understanding. /pita Humphries NP Nurse Practitioner [facility] Signed: 03/05/2021 14:56 Receipt Acknowledged By: 03/05/2021 14:57 /pita Mares RN, MSN, CCCTM for AUGUSTINE GUTIÉRREZ
--- OUTSIDE RECORDS SUMMARY | 2022-02-07 12:10 | XMS_ITS | Encounter Summary ---
:1950 Author Organization [facility] Address [address] [place] [address] Support Name Relationship Address Phone USHA CORNEJO Unavailable [address] [place] [address] USHA CORNEJO Unavailable [address] [place] [address] Insurance Providers: All historical and current Section [...] [place] Apr 05, [id number] [address] P ATIENT SUPPLEMEN ARE 2018 09 [id number] [phone] ILLARD LIU SUPPL 1A ENT [place] Apr 05, [id number] [address], W [facility] SUPPLEMEN ARE 2018 09 [id number] [phone] ILLARD LIU SUPPL 1A EMENT [place] Oct 03, [id number] [address], W [facility] SUPPLEMEN ARE [phone] ILLARD LIU SUPPL EMENT MEDICARE MEDICARE PART Oct 03, PART A [id number] [address],W P ATIENT (WNR) (M) A 2013 EV03 [phone] I[place] MEDICARE MEDICARE PART Oct 03, PART B [id number] [address],W P ATIENT (WNR) (M) B 2013 EV03 [phone] [place] MEDICARE MEDICARE PART Oct 03, PART A [id number] [address],W P ATIENT (WNR) (M) A 2013 EV03 [phone] [place] MEDICARE MEDICARE PART Oct 03, PART B [id number] 800 Layla CORNEJO (WNR) (M) B 2013 EV03 [phone] AMOS [facility] MEDICARE MEDIC Apr 05, [id number] [phone] Layla MARTÍNEZ PATIENT OF [place] [facility] 09 [id number] 1 AMOS [place] SUPPL 1A EMENT Selected Encounter This section includes the information on record at [place] for the Encounter. Date/Time Encounter Type Encounter Description Reason Provider Source May 21, 2021 02:39 Outpatient Encounter EVENT (HISTORICAL) PM IHE Encounter Template Text not used by [place] Plan of Treatment: Future Appointments (+ 6 months) and Future Tests (+/- 45 days) The Plan of Treatment section includes future care activities for the [facility] [place] [facility] This section includes future appointments and future orders which are active, pending orscheduled.Future Appointments This section includes appointments that were scheduled to occur 6 months from the date of the Encounter, up to a maximum of 20 appointments. The data comes from all [place] treatment facilities. Appointment Date/Time Appointment Type Appointment Facili ty Name Nov 05, 2021 08:30 AM AMBULATORY - MEDICINE [facility] Nov 05, 2021 09:00 AM AMBULATORY - MEDICINE [facility] Nov 05, 2021 09:30 AM AMBULATORY - MEDICINE [facility] Social History: Smoking Status (Most current) and Tobacco Use (All prior to encounter date) This section includes the most current, and the historical, smoking and tobacco-related health factors from the [place] facility where the Encounter took place.Current Smoking Status This section includes the most current smoking, or tobacco-related health factor, from the [place] facility where the Encounter took place. Date/Time Current Smoking Status Comment Facility May 07, 2016 08:37 AM FORMER TOBACCO USE >1Y <7Y [facility] Tobacco Use History This section includes a history of the smoking, or tobacco- related health factors, that were collected on or before the date of the Encounter. The data comes from the [place] facility where the Encounter took place. Date/Time Smoking Status/Tobacco Use Comment [facility] it Jun 07, 2015 09:01 AM FORMER TOBACCO USE >1Y <7Y [facility] May 10, 2013 08:37 AM CURRENT TOBACCO USER [facility] May 04, 2012 08:46 AM CURRENT TOBACCO USER [facility] Jan 08, 2011 08:48 AM CURRENT TOBACCO USER [facility]
--- OUTSIDE RECORDS SUMMARY | 2022-02-07 12:10 | XMS_ITS | Encounter Summary ---
:1950 Author Organization [facility] Address [address] [place] [address] Support Name Relationship Address Phone USHA CORNEJO Unavailable [address] [place] [address] USHA CORNEJO Unavailable [address] [place] [address] Insurance Providers: All historical and current Section [...] [place] Apr 05, [id number] [address] P ATIENT SUPPLEMEN ARE 2018 09 [id number] [phone] ILLARD LIU SUPPL 1A ENT [place] Apr 05, [id number] [address], W [facility] SUPPLEMEN ARE 2018 09 [id number] [phone] ILLARD LIU SUPPL 1A EMENT [place] MED[place] Oct 03, [id number] [address], W [facility] SUPPLEMEN ARE [phone] ILLARD LIU SUPPL EMENT MEDICARE MEDICARE PART Oct 03, PART A [id number] [address],W P ATIENT (WNR) (M) A 2013 EV03 [phone] ILLARD MEDICARE MEDICARE PART Oct 03, PART B [id number] [address],W P ATIENT (WNR) (M) B 2013 EV03 [phone] ILL[place] MEDICARE MEDICARE PART Oct 03, PART A [id number] [address],W P ATIENT (WNR) (M) A 2013 EV03 [phone] [place] MEDICARE MEDICARE PART Oct 03, PART B [id number] 800 Layla CORNEJO ATIENT (WNR) (M) B 2013 EV03 [phone] [facility]OS [facility] MEDICARE MEDIC Apr 05, [id number] Layla MARTÍNEZ PATIENT OF [place] SUPPLEMEN ARE 2018 09 [id number] 1 AMOS [place] SUPPL 1A EMENT Selected Encounter This section includes the information on record at [place] for the Encounter. Date/Time Encounter Type Encounter Reason Provider Source Description Apr 15, 2021 02:03 Outpatient PRIMARY NALLELY ENCISO PM Encounter CARE/MEDICINE A IHE Encounter Template Text not used by [place] Plan of Treatment: Future Appointments (+ 6 months) and Future Tests (+/- 45 days) The Plan of Treatment section includes future care activities for the [facility] [place] [facility] This section includes future appointments and future orders which are active, pending orscheduled.Future Appointments This section includes appointments that were scheduled to occur 6 months from the date of the Encounter, up to a maximum of 20 appointments. The data comes from all [place] treatment facilities. Appointment Date/Time Appointment Type Appointment Facili ty Name May 21, 2021 02:00 PM AMBULATORY - MEDICINE [facility] May 21, 2021 02:30 PM AMBULATORY - MEDICINE [facility] Social History: Smoking Status (Most current) and Tobacco Use (All prior to encounter date) This section includes the most current, and the historical, smoking and tobacco-related health factors from the [place] facility where the Encounter took place.Current Smoking Status This section includes the most current smoking, or tobacco-related health factor, from the [place] facility where the Encounter took place. Date/Time Current Smoking Status Comment Facility May 07, 2016 08:37 AM FORMER TOBACCO USE >1Y <7Y [facility] Tobacco Use History This section includes a history of the smoking, or tobacco- related health factors, that were collected on or before the date of the Encounter. The data comes from the [place] facility where the Encounter took place. Date/Time Smoking Status/Tobacco Use Comment [facility] it Jun 07, 2015 09:01 AM FORMER TOBACCO USE >1Y <7Y [facility] May 10, 2013 08:37 AM CURRENT TOBACCO USER [facility] May 04, 2012 08:46 AM CURRENT TOBACCO USER [facility] Jan 08, 2011 08:48 AM CURRENT TOBACCO USER [facility] Encounter Notes: All associated encounter notes This section contains the clinical notes associated to the Encounter. Date/Time Encounter Note(s) Provider Source Apr 15, 2021 02:03 PM PRIMARY CARE SECURE MESSAGING: MERCEDES ENCISO [facility] LOCAL TITLE: PRIMARY CARE SECURE MESSAGING STANDARD TITLE: PRIMARY CARE SECURE MESSAGING DATE OF NOTE: APR 15, 2021@14:03:43 ENTRY DATE: APR 15, 2021@13:03:44 AUTHOR: NALLELY ENCISO EXP COSIGNER: URGENCY: STATUS: COMPLETED ------Original Message Sent: 04/15/2021 10:19 AM From: AMY CORNEJO To: [facility]-Primary Care-Estefani Enriquez Subject: Perscriptions I have messaged the Urology team in [place] to dis continue FINASTERIDE 5MG TAB RX#[id number] as the doctor I saw last requested t o discontinue them as I could have dizzy spells and I have been so I quit taki ng them, and now I don't have the dizzy spells. I don't need to pay for someth ing I am not taking!! /jamil/ Nallely Enciso RN [facility] Signed: 04/15/2021 13:03 Receipt Acknowledged By: * AWAITING SIGNATURE * AUGUSTINE ENRIQUEZ * AWAITING SIGNATURE * MALINA BURK
--- OUTSIDE RECORDS SUMMARY | 2022-02-07 12:10 | XMS_ITS | Encounter Summary ---
:1950 Author Organization Department [facility] Address [address] [place] [address] Support Name Relationship Address Phone USHA CORNEJO Unavailable [address] [place] [address] USHA CORNEJO Unavailable [address] [place] [address] Insurance Providers: All historical and current Section [...] [place] Apr 05, [id number] [address] P ATIENT SUPPLEMEN ARE 2018 09 [id number] [phone] ILLARD LIU SUPPL 1A EMENT [place] Apr 05, [id number] [address], W [facility] SUPPLEMEN ARE 2018 09 [id number] [phone] ILLARD LIU SUPPL 1A EMENT [place] MED[place] Oct 03, [id number] [address], W [facility] SUPPLEMEN ARE [phone] ILLARD LIU SUPPL EMENT MEDICARE MEDICARE PART Oct 03, PART A [id number] [address],W P ATIENT (WNR) (M) A 2013 EV03 [phone] ILLARD MEDICARE MEDICARE PART Oct 03, PART B [id number] [address],W P ATIENT (WNR) (M) B 2013 EV03 [phone] ILL[place] MEDICARE MEDICARE PART Oct 03, PART A [id number] [address],W P ATIENT (WNR) (M) A 2013 EV03 [id number] AMOS MEDICARE MEDICARE PART Oct 03, PART B [id number] 800 Layla CORNEJO (WNR) (M) B 2013 EV03 [phone] [facility]OS [place] MEDICARE MEDIC Apr 05, [id number] Layla MARTÍNEZ PATIENT OF PENDING S[facility] ARE 2018 09 [id number] 1 AMOS [place] SUPPL 1A EMENT Selected Encounter This section includes the information on record at [place] for the Encounter. Date/Time Encounter Type Encounter Description Reason Provider Source May 21, 2021 02:00 Outpatient Encounter ADMIN PAT ACTIVTIES PM (MASNONCT) IHE Encounter Template Text not used by [place] Plan of Treatment: Future Appointments (+ 6 months) and Future Tests (+/- 45 days) The Plan of Treatment section includes future care activities for the patient from all [place] treatmentfacilities. This section includes future appointments and future orders which are active, pending orscheduled.Future Appointments This section includes appointments that were scheduled to occur 6 months from the date of the Encounter, up to a maximum of 20 appointments. The data comes from all [place] treatment facilities. Appointment Date/Time Appointment Type Appointment Facili ty Name Nov 05, 2021 08:30 AM AMBULATORY - MEDICINE [facility] Nov 05, 2021 09:00 AM AMBULATORY - MEDICINE [facility] Nov 05, 2021 09:30 [facility] Vital Signs: All taken on the encounter date This section contains inpatient and outpatient Vital Signs collected on the date of the Encounter. Date/Time Temperature Pulse Blood Respiratory SP02 Pain Height Weight Arias dy Source Pressure Rate Mass Index May 21, 4 JAMESTO 2021 02:16 [facility] May 21, 98.4 F 70 119/69 20 /min 95 % 4 72.5 in 220.4 30 JAMEST O 2021 02:09 /min mm[Hg] lb [facility] Social History: Smoking Status (Most current) and Tobacco Use (All prior to encounter date) This section includes the most current, and the historical, smoking and tobacco-related health factors from the [place] facility where the Encounter took place.Current Smoking Status This section includes the most current smoking, or tobacco-related health factor, from the [place] facility where the Encounter took place. Date/Time Current Smoking Status Comment Facility Oct 24, 2020 08:30 AM VA-TOBACCO FORMER USER [facility] Tobacco Use History This section includes a history of the smoking, or tobacco- related health factors, that were collected on or before the date of the Encounter. The data comes from the [place] facility where the Encounter took place. Date/Time Smoking Status/Tobacco Use Comment [facility] Oct 24, 2020 08:30 AM [place]-TOBACCO QUIT 5 TO < 15 YRS [facility] Nov 21, 2019 09:00 AM IA-TOBACCO FORMER USER [facility] Nov 21, 2019 09:00 AM [place]-TOBACCO QUIT 5 TO < 15 YRS [facility] Dec 15, 2017 04:23 PM LIFETIME NON-TOBACCO USER [facility] Mar 03, 2017 08:30 AM FORMER TOBACCO USE >1Y <7Y [facility]
--- OUTSIDE RECORDS SUMMARY | 2022-02-07 12:10 | XMS_ITS | Encounter Summary ---
:1950 Author Organization [facility] Address [address] [place] [address] Support Name Relationship Address Phone USHA CORNEJO Unavailable [address] [place] [address] USHA CORNEJO Unavailable [address] [place] [address] Insurance Providers: All historical and current Section Date Range: From patient's date of to the date document was created.This section includes the names of all active insurance providers for the patient. Insurance Type of Plan Start of End of Group Member Insurance Policy P atient's Provider Coverage Name Policy Policy Number ID Provider's Ahji's Relationship Coverage Coverage Telephone Name to Policy Number Haji [place] Apr 05, [id number] [address] P ATIENT SUPPLEMEN ARE 2018 09 [id number] [phone] ILLARD LIU SUPPL 1A ENT [place] Apr 05, [id number] [address], W [facility] SUPPLEMEN ARE 2018 09 [id number] [phone] ILLARD LIU SUPPL 1A EMENT [place] MED[place] Oct 03, [id number] [address], W [facility] SUPPLEMEN ARE [phone] ILLARD LIU SUPPL EMENT MEDICARE MEDICARE PART Oct 03, PART A [id number] [address],W P ATIENT (WNR) (M) A 2013 [id number] [phone] ILLARD MEDICARE MEDICARE PART Oct 03, PART B [id number] [address],W P ATIENT (WNR) (M) B 2013 EV03 [phone] I[place] MEDICARE MEDICARE PART Oct 03, PART A [id number] [address],W P ATIENT (WNR) (M) A 2013 EV03 [phone] I[place] MEDICARE MEDICARE PART Oct 03, PART B [id number] 800 Layla CORNEJO (WNR) (M) B 2013 [id number] [phone] [facility] MEDICARE MEDIC Apr 05, [id number] [phone] Layla MARTÍNEZ PATIENT OF [place] SUPPLEMEN ARE 2018 09 [id number] 1 AMOS [place] SUPPL 1A EMENT Selected Encounter This section includes the information on record at [place] for the Encounter. Date/Time Encounter Type Encounter Description Reason Provider Source Apr 07, 2021 12:39 Outpatient Encounter EVENT (HISTORICAL) PM IHE Encounter Template Text not used by [place] Plan of Treatment: Future Appointments (+ 6 months) and Future Tests (+/- 45 days) The Plan of Treatment section includes future care activities for the patient from all [place] treatmentfacilities. This section includes future appointments and future orders which are active, pending orscheduled.Future Appointments This section includes appointments that were scheduled to occur 6 months from the date of the Encounter, up to a maximum of 20 appointments. The data comes from all [place] treatment facilities. Appointment Date/Time Appointment Type Appointment Facili ty Name May 21, 2021 02:00 PM AMBULATORY - MEDICINE [facility] May 21, 2021 02:30 PM AMBULATORY - MEDICINE [facility] Social History: Smoking Status (Most current) and Tobacco Use (All prior to encounter date) This section includes the most current, and the historical, smoking and tobacco-related health factors from the [place] facility where the Encounter took place.Current Smoking Status This section includes the most current smoking, or tobacco-related health factor, from the [place] facility where the Encounter took place. Date/Time Current Smoking Status Comment Facility May 07, 2016 08:37 AM FORMER TOBACCO USE >1Y <7Y [facility] Tobacco Use History This section includes a history of the smoking, or tobacco- related health factors, that were collected on or before the date of the Encounter. The data comes from the [place] facility where the Encounter took place. Date/Time Smoking Status/Tobacco Use Comment [facility] it Jun 07, 2015 09:01 AM FORMER TOBACCO USE >1Y <7Y [facility] May 10, 2013 08:37 AM CURRENT TOBACCO USER [facility] May 04, 2012 08:46 AM CURRENT TOBACCO USER [facility] Jan 08, 2011 08:48 AM CURRENT TOBACCO USER [facility] Encounter Notes: All associated encounter notes This section contains the clinical notes associated to the Encounter. Date/Time Encounter Note(s) Provider Source Apr 07, 2021 12:39 PM NONVA CONSULT: [facility] TITLE: COMMUNITY CARE-ORTHOPEDIC CONSULT STANDARD TITLE: NONVA CONSULT DATE OF NOTE: APR 07, 2021@12:39 ENTRY DATE: APR 15, 2021@12:41:12 AUTHOR: MATIAS CHRISTIANSON EXP COSIGNER: URGENCY: STATUS: COMPLETED VistA Imaging - Scanned Document SCANNED DOCUMENT SIGNATURE NOT REQUIRED Electronically Filed: 04/15/2021 by: MATIAS CHRISTIANSON
--- OUTSIDE RECORDS SUMMARY | 2022-02-07 12:10 | XMS_ITS | Encounter Summary ---
:1950 Author Organization [facility] Address [address] [place] [address] Support Name Relationship Address Phone USHA CORNEJO Unavailable [address] [place] [address] USHA CORNEJO Unavailable [address] [place] [address] Insurance Providers: All historical and current Section [...] [place] Apr 05, [id number] [address],W P ATIENT SUPPLEMEN ARE 2018 09 [id number] [phone] ILLARD LIU SUPPL 1A EMENT [place] Apr 05, [id number] [address], W [facility] SUPPLEMEN ARE 2018 09 [id number] [phone] ILLARD LIU SUPPL 1A EMENT [place] MED[place] Oct 03, [id number] [address], W [facility] SUPPLEMEN ARE [phone] ILLARD LIU SUPPL EMENT MEDICARE MEDICARE PART Oct 03, PART B [id number] [address],W P ATIENT (WNR) (M) B 2013 EV03 [phone] ILLARD MEDICARE MEDICARE PART Oct 03, PART A [id number] [address],W P ATIENT (WNR) (M) A 2013 EV03 [phone] ILLARD MEDICARE MEDICARE PART Oct 03, PART A [id number] [address],W P ATIENT (WNR) (M) A 2013 EV03 [phone] ILLARD MEDICARE MEDICARE PART Oct 03, PART B [id number] 800 Layla CORNEJO ATIENT (WNR) (M) B 2013 [id number] [facility]OS [facility] MEDICARE MEDIC Apr 05, [id number] [phone] Layla MARTÍNEZ PATIENT OF [facility] ARE 2018 09 [id number] 1 AMOS [place] SUPPL 1A EMENT Selected Encounter This section includes the information on record at [place] for the Encounter. Date/Time Encounter Type Encounter Reason Provider Source Description Mar 12, 2021 HC PRO PHONE TELEPHONE PRIMARY ICD-10-CM RIMA GUTIÉRREZJudit Syed 03:30 PM CALL 5-10 MIN CARE R68.89 Other general symptoms and signs with Provider Comments: General Symptoms & Signs IHE Encounter Template Text not used by [place] Assessments - Encounter Diagnoses This section includes the primary and secondary diagnoses documented for the Encounter. Date/Time Primary/Secondary Diagnosis Name Provider Source Diagnosis Mar 12, 2021 PRIMARY Other general AUGUSTINE GUTIÉRREZ [facility] 03:30 PM symptoms and CLINIC signs Plan of Treatment: Future Appointments (+ 6 months) and Future Tests (+/- 45 days) The Plan of Treatment section includes future care activities for the patient from all [place] treatmentfacilities. This section includes future appointments and future orders which are active, pending orscheduled.Future Appointments This section includes appointments that were scheduled to occur 6 months from the date of the Encounter, up to a maximum of 20 appointments. The data comes from all [place] treatment facilities. Appointment Date/Time Appointment Type Appointment Facili ty Name May 21, 2021 02:00 PM AMBULATORY - MEDICINE [facility] May 21, 2021 02:30 PM AMBULATORY - MEDICINE [facility] Lab Results: +/- 30 days of the encounter This section includes the Chemistry and Hematology Lab Results on record with [place] for the patient. Radiology Reports and Pathology Reports are provided separately, in subsequent sections.Lab Results This section contains the Chemistry/Hematology Results that were resulted 30 days before or 30 daysafter the date of the Encounter. Date/Time Source Result Type Result - Unit Interpretation Reference Range Comment Mar 04, 2021 12:36 PM [facility] COVID-19 DIAGNOSTIC PANEL Specimen Type: NASOPHARYNX (DIASORIN) Comment: Diasor in (437) This is an emergency use authorized test. Testing performed on the [employer] MDX PCR instrument. Ordering Provid er: ALLYSSA RIZVI Report Released Date/Time: Mar 03, 2021 02:07 PM Reporting Lab: [facility] [address] [facility] [address] Performing Lab: [facility] [address] [facility] [address] COVID-19 (DIASORIN) Negative Negative Social History: Smoking Status (Most current) and Tobacco Use (All prior to encounter date) This section includes the most current, and the historical, smoking and tobacco-related health factors from the [facility] where the Encounter took place.Current Smoking Status This section includes the most current smoking, or tobacco-related health factor, from the [facility] where the Encounter took place. Date/Time Current Smoking Status Comment Facility Oct 24, 2020 08:30 AM [place]-TOBACCO FORMER USER [facility] Tobacco Use History This section includes a history of the smoking, or tobacco- related health factors, that were collected on or before the date of the Encounter. The data comes from the [facility] where the Encounter took place. Date/Time Smoking Status/Tobacco Use Comment [facility] Oct 24, 2020 08:30 AM [place]-TOBACCO QUIT 5 TO < 15 YRS [facility] Nov 21, 2019 09:00 AM [place]-TOBACCO FORMER USER [facility] Nov 21, 2019 09:00 AM [place]-TOBACCO QUIT 5 TO < 15 YRS [facility] Dec 15, 2017 04:23 PM LIFETIME NON-TOBACCO USER [facility] Mar 03, 2017 08:30 AM FORMER TOBACCO USE >1Y <7Y [facility] Encounter Notes: All associated encounter notes This section contains the clinical notes associated to the Encounter. Date/Time Encounter Note(s) Provider Source Mar 12, 2021 03:30 PM TELEPHONE ENCOUNTER NOTE: AUGUSTINE GUTIÉRREZ [facility] LOCAL TITLE: TELEPHONE CONTACT NOTE STANDARD TITLE: TELEPHONE ENCOUNTER NOTE DATE OF NOTE: MAR 12, 2021@15:30 ENTRY DATE: MAR 13, 2021@11:20:34 AUTHOR: AUGUSTINE GUTIÉRREZ EXP COSIGNER: URGENCY: STATUS: COMPLETED S: [place] states that he is feeling good. He has a dry cough left but it is not bad. He states that the anti biotics did the trick. [facility]. O: phone call COVID test 03/04/21 negative A: URI nearly all resolved. P: RTC prn. 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
--- OUTSIDE RECORDS SUMMARY | 2022-02-07 12:10 | XMS_ITS | Encounter Summary ---
:1950 Author Organization [facility] Address [address] [place] [address] Support Name Relationship Address Phone USHA CORNEJO Unavailable [address] [place] [address] USHA CORNEJO Unavailable [address] [place] [address] Insurance Providers: All historical and current Section [...] [place] Apr 05, [id number] [address],W P ATIENT SUPPLEMEN ARE 2018 09 [id number] [phone] ILLARD LIU SUPPL 1A EMENT [place] Apr 05, [id number] [address], W [facility] SUPPLEMEN ARE 2018 09 [id number] [phone] ILLARD LIU SUPPL 1A ENT [employer] MEDIC Oct 03, [id number] [address], W [facility] SUPPLEMEN ARE [phone] ILLARD LIU SUPPL EMENT MEDICARE MEDICARE PART Oct 03, PART A [id number] [address],W P ATIENT (WNR) (M) A 2013 EV03 [phone] I[facility]ARD MEDICARE MEDICARE PART Oct 03, PART B [id number] [address],W P ATIENT (WNR) (M) B 2013 EV03 [phone] I[facility]ARD MEDICARE MEDICARE PART Oct 03, PART A [id number] [address],W P ATIENT (WNR) (M) A 2013 EV03 [phone] I[facility] MEDICARE MEDICARE PART Oct 03, PART B [id number] 800 CLEMENTELayla OLIVAREZ (WNR) (M) B 2013 EV03 [phone] [facility] [place] MEDICARE MEDIC Apr 05, [id number] [phone] Layla MARTÍNEZ [facility] [place] [facility] 2018 09 [id number] 1 AMOS [place] SUPPL 1A EMENT Selected Encounter This section includes the information on record at [place] for the Encounter. Date/Time Encounter Type Encounter Reason Provider Source Description Mar 05, 2021 HC PRO PHONE TELEPHONE TRIAGE ICD-10-CM Z71.9 RA KIKA ROMAN 08:10 AM CALL 5-10 MIN Counseling, Judit unspecified with Provider Comments: Counseling, unspecified IHE Encounter Template Text not used by [place] Assessments - Encounter Diagnoses This section includes the primary and secondary diagnoses documented for the Encounter. Date/Time Primary/Secondary Diagnosis Name Provider Source Diagnosis Mar 05, 2021 PRIMARY ABEL Tinajero RACHEL [facility] 08:10 AM unspecified A Plan of Treatment: Future Appointments (+ 6 [...] 12, 2021 03:30 PM AMBULATORY - MEDICINE [facility] May 21, 2021 02:00 PM AMBULATORY - MEDICINE [facility] May 21, 2021 02:30 PM AMBULATORY - MEDICINE [facility] Lab Results: +/- 30 days of the encounter This section includes the Chemistry and Hematology Lab Results on record with [place] for the patient. Radiology Reports and Pathology Reports are provided separately, in subsequent sections.Lab Results This section contains the Chemistry/Hematology Results that were resulted 30 days before or 30 daysafter the date of the Encounter. Date/Time Source Result Type Result - Unit Interpretation Reference Range Comment Mar 04, 2021 12:36 PM [facility] COVID-19 DIAGNOSTIC PANEL Specimen Type: NASOPHARYNX (DIASORIN) Comment: Diasor in (437) This is an emergency use authorized test. Testing performed on the [employer] MDX PCR instrument. Ordering Provid er: MARY HUMPHRIES Report Released Date/Time: Mar 03, 2021 02:07 PM Reporting Lab: [facility] [address] [facility] [id number] Performing Lab: [facility] [address] [facility] [address] COVID-19 (DIASORIN) Negative Negative Social History: Smoking [...] 08:37 AM FORMER TOBACCO USE >1Y <7Y [facility] Tobacco Use History This section includes a history of the smoking, or tobacco- related health factors, that were collected on or before the date of the Encounter. The data comes from the [place] facility where the Encounter took place. Date/Time Smoking Status/Tobacco Use Comment [facility] it Jun 07, 2015 09:01 AM FORMER TOBACCO USE >1Y <7Y [facility] May 10, 2013 08:37 AM CURRENT TOBACCO USER [facility] May 04, 2012 08:46 AM CURRENT TOBACCO USER [facility] Jan 08, 2011 08:48 AM CURRENT TOBACCO USER [facility] Encounter Notes: All associated encounter notes This section contains the clinical notes associated to the Encounter. Date/Time Encounter Note(s) Provider Source Mar 05, 2021 08:10 AM TELEPHONE ENCOUNTER NOTE: AUSTEN ROMAN [facility] LOCAL TITLE: TELEPHONE CARE NURSING TRIAGE STANDARD TITLE: TELEPHONE ENCOUNTER NOTE DATE OF NOTE: MAR 05, 2021@08:10:44 ENTRY DATE: MAR 05, 2021@08:19:46 AUTHOR: AUSTEN ROMAN EXP COSIGNER: URGENCY: STATUS: COMPLETED TELEPHONE CARE NURSING TRIAGE Has ADDENDA * Chief Complaint: Not applicable to call. The following identifiers were used to verify th is patient: . SSN. Other: Name. Author: AUSTEN ROMAN Caller Area: [address] [place] [address] The patient, AMY CORNEJO ([id number]) Ph one: called the call center. Caller Response: OTHER Class Code: Counseling, unspecified. Contact Advised to contact Telephone Care for any questions, concerns, new or worsening symptoms; services available 26/10. Imported Information: NURSES NOTES PATIENT CONCERN/DURATION/ONSET: Case Management WHAT HAS PATIENT TRIED TO TREAT THE SYMPTOMS: n/a HISTORY/PREVIOUS TREATMENT: I had a COVID test yesterda y. Today I am coughing up green mucus and yellow is coming out of my sinuses. I think I am getting a sinus infection. I am wondering about getting an antibiotic over the p jose. This is all that is new since Wednesday. WHAT IS PATIENT GOAL FOR THE CALL: Kerrick requests as above with call back. Please call at [phone] or . 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 Advised caller note pl aced and Message Patient Account Liaison sent to appropriate team for follow-up. Caller verbal ized understanding through teach back method at time of call. Evaluation/Management Code: HC PRO PHONE CALL 5- 10 MIN ([id number]). Starting at: 03/05/2021 @ 8:10:44 AM Ending at: 03/05/2021 @ 8:18:01 AM Length: 7 minutes. Patient's Email Address: Type of call: *CASE MANAGEMENT. 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 Results pending. States he is now coughing up gr een phlegm, has yellow phlegm from his sinuses, running a fever around 99-100. Chest sore he thinks from coughing and recent broken ribs Reached out to Mary Humphries NP and she will revie w notes. /es/ Toshia Han RN CBOC Shaan Signed: 03/05/2021 11:37
--- OUTSIDE RECORDS SUMMARY | 2022-02-07 12:10 | XMS_ITS | Encounter Summary ---
:1950 Author Organization [facility] Address [address] [place] [address] Support Name Relationship Address Phone USHA CORNEJO Unavailable [address] [place] [address] USHA CORNEJO Unavailable [address] [place] [address] Insurance Providers: All historical and current Section [...] H[place] Apr 05, [id number] [address],W P ATIENT SUPPLEMEN ARE 2018 09 [id number] [phone] ILLARD LIU SUPPL 1A ENT [place] Apr 05, [id number] [address], W [facility] SUPPLEMEN ARE 2018 09 [id number] [phone] ILLARD LIU SUPPL 1A EMENT [place] MEDIC Oct 03, [id number] [address], W [facility] SUPPLEMEN ARE [phone] ILLARD LIU SUPPL EMENT MEDICARE MEDICARE PART Oct 03, PART B [id number] [address],W P ATIENT (WNR) (M) B 2013 EV03 [phone] I[facility] MEDICARE MEDICARE PART Oct 03, PART A [id number] [address],W P ATIENT (WNR) (M) A 2013 EV03 [phone] [facility] MEDICARE MEDICARE PART Oct 03, PART A [id number] [address],W P ATIENT (WNR) (M) A 2013 EV03 [phone] [facility] MEDICARE MEDICARE PART Oct 03, PART B [id number] 800 Layla CORNEJOIENT (WNR) (M) B 2013 EV03 [phone] [facility] MEDICARE MEDIC Apr 05, [id number] [phone] Layla MARTÍNEZ PATIENT OF [place] [facility] 2018 09 [id number] 1 [facility] [place] SUPPL 1A EMENT Selected Encounter This section includes the information on record at [place] for the Encounter. Date/Time Encounter Type Encounter Description Reason Provider Source August 19, 2021 12:00 Outpatient Encounter EVENT (HISTORICAL) AM IHE Encounter Template Text not used by [place] Plan of Treatment: Future Appointments (+ 6 months) and Future Tests (+/- 45 days) The Plan of Treatment section includes future care activities for the patient [facility] [place] [facility] This section includes future appointments and future orders which are active, pending orscheduled.Future Appointments This section includes appointments that were scheduled to occur 6 months from the date of the Encounter, up to a maximum of 20 appointments. The data comes from all [place] treatment facilities. Appointment Date/Time Appointment Type Appointment Facili ty Name Nov 05, 2021 08:30 AM AMBULATORY - MEDICINE [facility] Nov 05, 2021 09:00 [facility] Nov 05, 2021 09:30 AM AM[facility]ULAT[facility] - MEDICINE [facility] Dec 22, 2021 09:00 AM AMBULATORY MEDICINE [facility] Dec 22, 2021 09:30 [facility] Dec 25, 2021 10:30 AM AMBULATORY - SURGERY [facility] Dec 25, 2021 11:30 AM AMBULATORY - MEDICINE [facility] Feb 19, 2022 09:00 AM AMBULATORY - MEDICINE [facility] Immunizations: All administered on the encounter date This section contains immunizations associated to the Encounter. Immunization Series Date Issued Reaction Comments COVID-19 (MODERNA), MRNA, LNP-S, PF, 100 4 August 19, 2021 MCG/0.5ML DOSE OR 50 MCG/0.25ML DOSE Social History: Smoking Status (Most current) and Tobacco Use (All prior to encounter date) This section includes the most current, and the historical, smoking and tobacco-related health factors from the [place] facility where the Encounter took place.Current Smoking Status This section includes the most current smoking, or tobacco-related health factor, from the [place] facility where the Encounter took place. Date/Time Current Smoking Status Comment Facility May 07, 2016 08:37 AM FORMER TOBACCO USE >1Y <7Y [facility] Tobacco Use History This section includes a history of the smoking, or tobacco- related health factors, that were collected on or before the date of the Encounter. The data comes from the [place] facility where the Encounter took place. Date/Time Smoking Status/Tobacco Use Comment Facil ity Jun 07, 2015 09:01 AM FORMER TOBACCO USE >1Y <7Y [facility] May 10, 2013 08:37 AM CURRENT TOBACCO USER [facility] May 04, 2012 08:46 AM CURRENT TOBACCO USER [facility] Jan 08, 2011 08:48 AM CURRENT TOBACCO USER [facility]
--- OUTSIDE RECORDS SUMMARY | 2022-02-07 12:10 | XMS_ITS | Encounter Summary ---
:1950 Author Organization [facility] Address [address] [place] [address] Support Name Relationship Address Phone USHA CORNEJO Unavailable [address] [place] [address] USHA CORNEJO Unavailable [address] [place] [address] Insurance Providers: All historical and current Section [...] H[place] Apr 05, [id number] P ATIENT SUPPLEMEN ARE 2018 09 [id number] [phone] ILL[place] LIU SUPPL 1A EMENT [place] Apr 05, [id number], W [facility] SUPPLEMEN ARE 2018 09 [id number] [phone] ILLARD LIU SUPPL 1A EMENT [place] Oct 03, [id number] [address], [address] [facility] SUPPLEMEN ARE [phone] ILLARD LIU SUPPL EMENT MEDICARE MEDICARE PART Oct 03, PART A [id number] [address],W P ATIENT (WNR) (M) A 2013 EV03 [phone] I[place] MEDICARE MEDICARE PART Oct 03, PART B [id number] [address],W P ATIENT (WNR) (M) B 2013 EV03 [phone] [place] MEDICARE MEDICARE PART Oct 03, PART A [id number] [address],W P ATIENT (WNR) (M) A 2013 EV03 [phone] [facility] MEDICARE MEDICARE PART Oct 03, PART B [id number] 800 Layla CORNEJO ATIENT (WNR) (M) B 2013 EV03 [phone] [place] MED[place] MED[place] Apr 05, [id number] [phone] Layla MARTÍNEZ [facility] 2018 09 [id number] 1 [facility] SUPPL 1A EMENT Selected Encounter This section includes the information on record at [place] for the Encounter. Date/Time Encounter Type Encounter Reason Provider Source Description May 21, 2021 OFFICE O/P EST PRIMARY ICD-10-CM M17.12 GRACIELA ENRIQUEZ 02:30 PM LOW 20-29 MIN CARE/MEDICINE Unilateral primary osteoarthritis, left knee with Provider Comments: Unilateral Primary Osteoarthritis, left Knee IHE Encounter Template Text not used by [facility] Assessments - Encounter Diagnoses This section includes the primary and secondary diagnoses documented for the Encounter. Date/Time Primary/Secondary Diagnosis Name Provider Source Diagnosis May 21, 2021 PRIMARY Unilateral GRACIELA ENRIQUEZ [facility] 02:52 PM primary CLINIC osteoarthritis, left knee Plan of Treatment: Future Appointments (+ 6 months) and Future Tests (+/- 45 days) The Plan of Treatment section includes future care activities for the patient from all [place] treatmentfacilities. This section includes future appointments and future orders which are active, pending orscheduled.Future Appointments This section includes appointments that were scheduled to occur 6 months from the date of the Encounter, up to a maximum of 20 appointments. The data comes from all [place] treatment facilities. Appointment Date/Time Appointment Type Appointment Facili ty Name Nov 05, 2021 08:30 AM AMBULATORY - MEDICINE [facility] Nov 05, 2021 09:00 AM AMBULATORY - MEDICINE [facility] Nov 05, 2021 09:30 [facility] Vital Signs: All taken on the encounter date This section contains inpatient and outpatient Vital Signs collected on the date of the Encounter. Date/Time Temperature Pulse Blood Respiratory SP02 Pain Height Weight Arias dy Source Pressure Rate Mass Index May [address] [facility] 02:16 [facility] [place] PM CLINIC May 21, 98.4 F 70 119/69 20 /min 95 % 4 72.5 in 220.4 30 [facility] O 2021 02:09 /min mm[Hg] lb WN [facility] Social History: Smoking Status (Most current) and Tobacco Use (All prior to encounter date) This section includes the most current, and the historical, smoking and tobacco-related health factors from the [facility] where the Encounter took place.Current Smoking Status This section includes the most current smoking, or tobacco-related health factor, from the [facility] where the Encounter took place. Date/Time Current Smoking Status Comment Facility Oct 24, 2020 08:30 AM VA-TOBACCO FORMER USER [facility] Tobacco Use History This section includes a history of the smoking, or tobacco- related health factors, that were collected on or before the date of the Encounter. The data comes from the [facility] where the Encounter took place. Date/Time Smoking Status/Tobacco Use Comment [facility] Oct 24, 2020 08:30 AM [place]-TOBACCO QUIT 5 TO < [address] [facility] Nov 21, 2019 09:00 AM [place]-TOBACCO FORMER USER [facility] Nov 21, 2019 09:00 AM [place]-TOBACCO QUIT 5 TO < [address] [facility] Dec 15, 2017 04:23 PM LIFETIME NON-TOBACCO USER [facility] Mar 03, 2017 08:30 AM FORMER TOBACCO USE >1Y <7Y [facility] Encounter Notes: All associated encounter notes This section contains the clinical notes associated to the Encounter. Date/Time Encounter Note(s) Provider Source May 21, 2021 02:49 PM PROCEDURE NOTE: GRACIELA ENRIQUEZ [facility] LOCAL TITLE: INVASIVE PROCEDURE NOTE STANDARD TITLE: PROCEDURE NOTE DATE OF NOTE: MAY 21, 2021@14:49 ENTRY DATE: MAY 21, 2021@14:49:59 AUTHOR: GRACIELA ENRIQUEZ EXP COSIGNER: URGENCY: STATUS: COMPLETED presents with gradua lly increasing left knee stiffness and pain. He has known underlying osteoarthritis. He has had jono icosteroid injections in the past - most recent October. He states h e gets 6-12 months of pain improvement typically after an injection. He currently notes stiffness and aching in particular after prolonged sitting. No instabili ty, redness, warmth or effusion. He has mild discomfort with walking. Exam - left knee - no warmth or effusion, no pain to pa lpation, gait normal Impression: 1. Left knee osteoarthritis - corticosteroid inj ection performed today. INVASIVE PROCEDURE: * Required Zamora: Procedure: left knee corticosteroid injection Indication: left knee arthritis pain Individuals Present at Procedure: fideyarely melinda, Praveena Cohen RN Procedure Site: left knee Procedure Side: left Procedure Note: After sterile prep, 1% lidocain e 1 mL and 40mg triamcinolone were injected into the left knee via a lateral approach using a 25 ga needle. No complications. Complications: none Estimated Blood Loss: none INFORMED CONSENT COMPLETED: * Yes. PATIENT IDENTIFICATION: * Confirmed by having patient state two identifie rs: Full name, Date of , which was verified against the medical r ecord. SITE MARKING: * Procedure site marking not indicated. Was in th e presence of the patient from the time of informed consent through start of procedure. TIME OUT: Prior to start of procedure, a time- out was conducted to confirm correct patient, procedure and site. IMAGING DATA: * No imaging used for the procedure. /jamil/ Graciela Enriquez MD Provider, [facility] Signed: 05/21/2021 14:52 May 21, 2021 02:12 PM PRIMARY CARE NURSING NOTE: VICENTE DICKEY [facility] LOCAL TITLE: PRIMARY CARE NURSING NOTE STANDARD TITLE: PRIMARY CARE NURSING NOTE DATE OF NOTE: MAY 21, 2021@14:12 ENTRY DATE: MAY 21, 2021@14:12:24 AUTHOR: VICENTE DICKEY EXP COSIGNER: URGENCY: STATUS: COMPLETED REASON FOR VISIT/CONCERNS: VAP for cortisone inj ection to left knee. Last cortisone injection October 24, 2020. Had a horseba ck riding injury on 11/07/20 which has affected left knee and right ankle. Ra newton pain /10. LEVEL OF CONSCIOUSNESS: Alert, Appropriate, Orie nted [...] Does the patient report any new allergies? no Latex Allergy: Does patient have latex allergy or sensitivity? No MEDICATION REVIEW for MEDICATION RECONCILIATION: * ACTIVE OUTPATIENT MEDICATIONS: Active and Recently Outpatient Medicatio ns (including Supplies): Active Outpatient Medications Status 1) ATORVASTATIN CALCIUM 20MG TAB TAKE ONE-HALF T ABLET BY ACTIVE MOUTH AT BEDTIME FOR CHOLESTEROL 2) SILDENAFIL CITRATE 100MG TAB TAKE ONE TABLET BY MOUTH ACTIVE NEEDED 1 HR. PRIOR TO SEXUAL ACTIVITY, NO EA RLY REFILLS 3) TAMSULOSIN HCL 0.4MG CAP TAKE ONE CAPSULE BY MOUTH ACTIVE EVERY 24 HOURS AFTER [...] TABLET MOUTH EVERY DAY 8 Total Medications Medication review for medication reconciliation done. No changes noted. Non-VA Medication Discrepancies Identified: pro biotic capsule, one po daily Provider notified. PAIN ASSESSMENT: Pain Screening: Patient's last recorded pain score: 4 (05/21/19 22 14:09) Does patient have pain?: Yes Patient pain rating. 4 Has ongoing problems with pain?:Yes Is on pain control medications/treatments?: No Comprehensive Pain Assessment: Origin/Cause of pain: Comment: arthritis to knee, left, and right ank le Location of pain: Comment: left knee Quality: Describe the pain. Comment: Sharp, Aching, Throbbing, Intermittent Onset, duration, patterns, alleviating/aggravat ing factors: Comment: longstanding arthritis pain, right ank le h/o surgical fixation with plate and screws Effects of pain on day to day living. Comment: Physical Activity Pain Goal: 0 Patient provided information on [...] Comment: Verbalized Understanding PLAN OF CARE: Assessment and Plan: Per Advance Directive Outpatient/2019: ADVANCE DIRECTIVE NOTIFICATION: Patient was given written notification of the f ollowing rights: 1. Accept or refuse any medical treatment. 2. Complete a durable power of staff attorney for [facility] care. 3. Complete a living will. The patient has no Advance Directive currently on file. Does the patient want to create an Advance Dire ctive for Health Care? The [place] Advance Directive information folder was given to patient/family. The patient has no questions about completing formerly [facility] advance directive forms. Fall History Screen: FALL HISTORY SCREEN During the past 12 months, have you had any fal ls? Patient reports having one fall without injury requiring treatment. MEDICATIONS: Patient is on one of the following medication c lasses: Antihypertensives, Antidepressants, Antipsychot ics, Diuretics, or Controlled substance medication used for pain. Outpatient Nutrition Screen: NUTRITION SCREEN LAB VALUES: Glucose: 100 (12/11/20 14:16) Hgb A1C: SLT - Lab Tests Selected Collection DT Specimen Test Name Result Units R ef Range 10/24/2020 09:22 BLOOD HEMOGLOBIN A1C 5.5 % 4.0 - 6.0 Comment: Target A1C values should be individual ized. Better understanding Comment: of A1C test result accuracy is essenti al if clinicians are to Comment: interpret results for Veterans, and di scuss treatment options Comment: through the process of Shared Decision Making. Comment: Comment: Providers may contact the Laboratory f or performance Comment: characteristics of this assay. Lipid profile: Collection DT Spec CHOL TRIG HDL LDL-c a 10/24/2020 09:22 PLASM 132 68 60 58 b 11/21/2019 09:24 SERUM 140 91 57 65 COMMENTS: a. CHOLESTEROL comments: Desirable: <200 mg/dL Borderline High: 200-239 mg/dL High: >=240 mg/dL HDL comments: <40 mg/dL: Low HDL-cholesterol (major risk fact or for CHD) >= 60 mg/dL: High HDL-Cholesterol (Negative r isk factor for CHD) Reference range is based on fasting specimen. eGFR results >60 are somewhat imprecise. Chronic Kidney Disease less than 60 ml/min/1.73 m2. Kidney failure less than 15 ml/min/1.73 m2. LDL comments: <100 mg/dL Optimal 100-129 mg/dL Near or above optimal 130-159 mg/dL Borderline high 160-189 mg/dL High >= 190 mg/dL Very High b. Potassium to be performed on plasma sample CHOLESTEROL comments: Desirable: <200 mg/dL Borderline High: 200-239 mg/dL High: >240 mg/dL HDL comments: <40 mg/dL: Low HDL-cholesterol (major risk fact or for CHD) Reference range is based on fasting specimen. New Reference Range 08/12/06 - Based on the [place] [employer]'s guidelines - fasting glucose of 1 00 to 125 mg/dl is categorized as impaired fasting glucose(IFG). TRIGLYCERIDE comments: Normal: <150 mg/dL Borderline High: 150-199 mg/dL High: 200-499 mg/dL Very High: >/= 500 mg/dL eGFR results >60 are somewhat imprecise. Chronic Kidney Disease less than 60 ml/min/1.73 m2. Kidney failure less than 15 ml/min/1.73 m2. LDL comments: <100 mg/dL Optimal 100-129 mg/dL Near or above optimal 130-159 mg/dL Borderline high 160-189 mg/dL High >= 190 mg/dL Very High Lipid Profile Non-Fasting: Collection DT Specimen Test Name Result Units R ef Range 10/24/2020 09:22 PLASMA CHOLESTEROL 132 mg/dL R ef: SEE COMMENTS 10/24/2020 09:22 PLASMA TRIGLYCERIDE 68 mg/dL 0 - 150 10/24/2020 09:22 PLASMA HDL 60 mg/dL Ref: SEE COMMENTS 10/24/2020 09:22 PLASMA VLDL CALCULATION 14 md/ dL 5 - 40 Comment: CHOLESTEROL comments: Comment: Desirable: <200 mg/dL Comment: Borderline High: 200-239 mg/dL Comment: High: >=240 mg/dL Comment: HDL comments: Comment: <40 mg/dL: Low HDL-cholesterol (major risk factor for CHD) Comment: >= 60 mg/dL: High HDL-Cholesterol (Ne gative risk factor for CHD) Comment: Reference range is based on fasting sp ecimen. Comment: eGFR results >60 are somewhat imprecis e. Comment: Chronic Kidney Disease less than 60 ml /min/1.73 m2. Comment: Kidney failure less than 15 ml/min/1.7 3 m2. Comment: LDL comments: Comment: <100 mg/dL Optimal Comment: 100-129 mg/dL Near or above optimal Comment: 130-159 mg/dL Borderline high Comment: 160-189 mg/dL High Comment: >= 190 mg/dL Very High Patient's last BMI = 29.5 Is BMI less than 21? No UNPLANNED weight loss of MORE THAN 10 pounds ov er the LAST 2 MONTHS? No Hgb A1c 6.5 or greater? Information not available Hgb A1c 5.7-6.4 or fasting blood glucose over 1 00 without a diagnosis of diabetes (criteria for prediabetes)? Information not available Serum Cholesterol over 200 and/or Triglycerides over 150? Information not available Is patient receiving Total Parenteral Nutrition (TPN) or Tube Feedings? No How do you feel about the way you are presently eating and would you like to speak with someone about this? No If the patient answered Yes to any of the ite ms above, please place a Nutrition referral. Nutrition referral not applicable. In the last year, have you had a New Onset of s wallowing difficulty with coughing or choking while drinking at each meal ? No Depression Screening: Perform PHQ-2 A PHQ-2 screen was performed. The score was 0 w hich is a negative screen for depression. Over the past two weeks, how often have you bee n bothered by the following problems? 1. Little interest or pleasure in doing things Not at all 2. Feeling down, depressed, or hopeless Not at all COVID-19 Immunization: Moderna COVID-19 Vaccine given previously Patient received a prior dose of the Moderna [place] VID-19 Vaccine. Date: February 11, 2021 Series: Series 3 Location: [facility] per hardcopy card /es/ SINDHU Rodney [facility] Signed: 05/21/2021 14:22
--- OUTSIDE RECORDS SUMMARY | 2022-02-07 12:10 | XMS_ITS | Encounter Summary ---
:1950 Author Organization [facility] Address [address] [place] [address] Support Name Relationship Address Phone USHA CORNEJO Unavailable [address] [place] [address] USHA CORNEJO Unavailable [address] [place] [address] Insurance Providers: All historical and current Section [...] [place] Apr 05, [id number],W P ATIENT SUPPLEMEN ARE 2018 09 [id number] [phone] ILLARD LIU SUPPL 1A EMENT [place] Apr 05, [id number] [address], W [facility] SUPPLEMEN ARE 2018 09 [id number] [phone] ILLARD LIU SUPPL 1A EMENT [place] Oct 03, [id number] [address], W [facility] SUPPLEMEN ARE [phone] ILLARD LIU SUPPL EMENT MEDICARE MEDICARE PART Oct 03, PART B [id number] [address],W P ATIENT (WNR) (M) B 2013 EV03 [phone] ILL[place] MEDICARE MEDICARE PART Oct 03, PART A [id number] [address],W P ATIENT (WNR) (M) A 2013 EV03 [phone] [place] MEDICARE MEDICARE PART Oct 03, PART A [id number] [address],W P ATIENT (WNR) (M) A 2013 EV03 [phone] [place] MEDICARE MEDICARE PART Oct 03, PART B [id number] 800 Layla CORNEJO ATIENT (WNR) (M) B 2013 [id number] [place] MED[place]ARE MEDIC Apr 05, [id number] Layla MARTÍNEZ PATIENT OF [place] SUPPLEMEN ARE 2018 09 [id number] 1 AMOS [place] SUPPL 1A EMENT Selected Encounter This section includes the information on record at [place] for the Encounter. Date/Time Encounter Type Encounter Description Reason Provider Source Mar 04, 2021 01:00 Outpatient Encounter GENERAL INTERNAL PM MEDICINE IHE Encounter Template Text not used by [place] Plan of Treatment: Future Appointments (+ 6 months) and Future Tests (+/- 45 days) The Plan of Treatment section includes future care activities for the patient from all [place] treatmentfacilities. This section includes future appointments and future orders which are active, pending orscheduled.Future Appointments This section includes appointments that were scheduled to occur 6 months from the date of the Encounter, up to a maximum of 20 appointments. The data comes from all [place] treatment facilities. Appointment Date/Time Appointment Type Appointment Facili ty Name Mar 05, 2021 11:30 AM AMBULATORY - MEDICINE [facility] Mar 12, 2021 03:30 PM AMBULATORY - MEDICINE [facility] May 21, 2021 02:00 PM AMBULATORY - MEDICINE [facility] May 21, 2021 02:30 PM AMBULATORY MEDICINE [facility] Lab Results: +/- 30 days of the encounter This section includes the Chemistry and Hematology Lab Results on record with [place] for the patient. Radiology Reports and Pathology Reports are provided separately, in subsequent sections.Lab Results This section contains the Chemistry/Hematology Results that were resulted 30 days before or 30 daysafter the date of the Encounter. Date/Time Source Result Type Result - Unit Interpretation Reference Range Comment Mar 04, 2021 12:36 PM [facility] COVID-19 DIAGNOSTIC PANEL Specimen Type: NASOPHARYNX (DIASORIN) Comment: Diasor in (437) This is an emergency use authorized test. Testing performed on the Zelgor Liason MDX PCR instrument. Ordering Provid er: ALLYSSA RIZVI Report Released Date/Time: Mar 03, 2021 02:07 PM Reporting Lab: [facility] [address] [place] [address] Performing Lab: [facility] [address] [facility] [address] COVID-19 (DIASORIN) Negative Negative Social History: Smoking Status (Most current) and Tobacco Use (All prior to encounter date) This section includes the most current, and the historical, smoking and tobacco-related health factors from the [place] facility where the Encounter took place.Current Smoking Status This section includes the most current smoking, or tobacco-related health factor, from the [place] facility where the Encounter took place. Date/Time Current Smoking Status Comment Facility Oct 24, 2020 08:30 AM VA-TOBACCO FORMER USER [facility] Tobacco Use History This section includes a history of the smoking, or tobacco- related health factors, that were collected on or before the date of the Encounter. The data comes from the [place] facility where the Encounter took place. Date/Time Smoking Status/Tobacco Use Comment [facility] Oct 24, 2020 08:30 AM [place]-TOBACCO QUIT 5 TO < 15 YRS [facility] Nov 21, 2019 09:00 AM VA-TOBACCO FORMER USER [facility] Nov 21, 2019 09:00 AM [place]-TOBACCO QUIT 5 TO < 15 YRS [facility] Dec 15, 2017 04:23 PM LIFETIME NON-TOBACCO USER [facility] Mar 03, 2017 08:30 AM FORMER TOBACCO USE >1Y <7Y [facility]
--- OUTSIDE RECORDS SUMMARY | 2022-02-07 12:10 | XMS_ITS | Encounter Summary ---
:1950 Author Organization Department [facility] Address [address] [place] [id number] Support Name Relationship Address Phone USHA CORNEJO Unavailable [address] [place] [address] USHA CORNEJO Unavailable [address] [place] [address] Insurance Providers: All historical and current Section [...] Haji [place] Apr 05, [id number] [address] P ATIENT SUPPLEMEN ARE 2018 09 [id number] [phone] I[place] LIU SUPPL 1A EMENT [place] Apr 05, [id number] [address], W [facility] SUPPLEMEN ARE 2018 09 [id number] [phone] I[place] LIU SUPPL 1A EMENT [employer] [place] Oct 03, [id number] [address], W [facility] SUPPLEMEN ARE [phone] ILLARD LIU SUPPL EMENT MEDICARE MEDICARE PART Oct 03, PART A [id number] [address],W P ATIENT (WNR) (M) A 2013 EV03 [phone] [place] MEDICARE MEDICARE PART Oct 03, PART B [id number] [address],W P ATIENT (WNR) (M) B 2013 EV03 [phone] [place] MEDICARE MEDICARE PART Oct 03, PART A [id number] [address],W P ATIENT (WNR) (M) A 2013 EV03 [phone] [facility] MEDICARE MEDICARE PART Oct 03, PART B [id number] 800 Layla CORNEJO (WNR) (M) B 2013 EV03 [id number] [facility] MED[place] MED[place] Apr 05, [id number] Layla MARTÍNEZ PATIENT OF [facility] ARE 2018 09 [id number] 1 AM[facility] [place] SUPPL 1A EMENT Selected Encounter This section includes the information on record at [place] for the Encounter. Date/Time Encounter Type Encounter Description Reason Provider Source Nov 05, 2021 08:30 Outpatient Encounter ADMIN PAT ACTIVTIES AM (MASNONCT) IHE Encounter Template Text not used by [place] Plan of Treatment: Future Appointments (+ 6 months) and Future Tests (+/- 45 days) The Plan of Treatment section includes future care activities for the [facility] [place] [facility] This section includes future appointments and future orders which are active, pending orscheduled.Future Appointments This section includes appointments that were scheduled to occur 6 months from the date of the Encounter, up to a maximum of 20 appointments. The data comes from all [place] treatment [facility]. Appointment Date/Time Appointment Type Appointment Facili ty Name Dec 22, 2021 09:00 AM [facility] MEDICINE [facility] Dec 22, 2021 09:30 AM [facility] Dec 25, 2021 10:30 AM [facility] SURGERY [facility] Dec 25, 2021 11:30 AM [facility] Feb 19, 2022 09:00 AM AMBULATORY [facility] Feb 20, 2022 07:30 AM [facility] Active, Pending, and Scheduled Orders This section includes a listing of several types of active, pending, and scheduled orders, including clinic medications orders, diagnostic test orders, procedure orders and consult orders; where the start date of the order is 45 days before the date of the Encounter or 45 days after the date of the Encounter. The data comes from all [place] treatment [facility]. Test Date/Time Test Type Test Details Facility Name Nov 06, 2021 07:21 AM Consult Order COMMUNITY CARE-DERMATOLOGY [facility] Cons [facility] Lab Results: +/- 30 days of [...] Reference Range Comment Nov 05, 2021 09:26 [facility] HEMOGLOBIN A1C Specimen Type: BLOOD AM Comment: [...] AM Reporting Lab: [facility] [address] [place] [address] Performing Lab: [facility] [address] [place] [address] HEMOGLOBIN A1C 5.6 4.0-6.0 Nov 05, 2021 [facility] LIPID PROFILE, Specimen Ty pe: PLASMA 09:26 [...] AM Reporting Lab: [facility] [address] [place] [address] Performing Lab: [facility] [address] [place] [address] CHOLESTEROL 128 SEE COMMENTS TRIGLYCERIDE 59 0-150 HDL 59 SEE COMMENTS LDL MEASURED 61 SEE COMMENTS VLDL CALCULATION 12 5-40 Nov 05, 2021 09:26 AM [facility] CHEM7 Speci men Type: PLASMA Comment: SEA [...] AM Reporting Lab: [facility] [address] [place] [address] Performing Lab: [facility] [address] [place] [address] CREATININE 1.0 0.7-1.2 UREA NITROGEN 15 8-23 GLUCOSE 108 74-109 SODIUM 140 136-145 POTASSIUM 4.0 3.5-5.0 CHLORIDE 107 98-107 CO2 21 L 22-29 EGFR_CKD_EPI 79.0 >=60 Nov 05, 2021 09:26 AM [facility] CBC+DIFF Speci men Type: BLOOD No comment enter ed. Ordering Provid er: AUGUSTINE ENRIQUEZ Report Released Date/Time: Nov 05, 2021 08:42 AM Reporting Lab: [facility] [address] [place] [address] Performing Lab: [facility] [address] [place] [address] WBC 5.7 4.8-10.8 RBC 4.79 4.5-6.1 HGB [...] Arias dy Source Pressure Rate Mass Index Nov 052021 08:56 WN [facility] Nov 05, 98.2 F 61 117/69 20 /min 95 % 2 72.5 in 223.2 30 JAMEST O 2021 08:52 /min mm[Hg] lb [facility] Social History: Smoking Status (Most current) and Tobacco Use (All prior to encounter date) This section includes the most current, and the historical, smoking and tobacco-related health factors from the [place] facility where the Encounter took place.Current Smoking Status This section includes the most current smoking, or tobacco-related health factor, from the [place] facility where the Encounter took place. Date/Time Current Smoking Status Comment Facility Nov 05, 2021 09:00 AM VA-TOBACCO FORMER USER [facility] Tobacco Use History This section includes a history of the smoking, or tobacco- related health factors, that were collected on or before the date of the Encounter. The data comes from the [place] facility where the Encounter took place. Date/Time Smoking Status/Tobacco Use Comment [facility] corinne Nov 05, 2021 09:00 AM VA-TOBACCO QUIT 15 YRS OR MORE [facility] Oct 24, 2020 08:30 AM VA-TOBACCO FORMER USER [facility] Oct 24, 2020 08:30 AM VA-TOBACCO QUIT 5 TO < 15 YRS [facility] Nov 21, 2019 09:00 AM VA-TOBACCO FORMER USER [facility] Nov 21, 2019 09:00 AM VA-TOBACCO QUIT 5 TO < 15 YRS [facility] Dec 15, 2017 04:23 PM LIFETIME NON-TOBACCO USER [facility] Mar 03, 2017 08:30 AM FORMER TOBACCO USE >1Y <7Y [facility]
--- OUTSIDE RECORDS SUMMARY | 2022-02-07 12:11 | XMS_ITS | Encounter Summary ---
:1950 Author Organization [facility] Address [address] [place] [address] Support Name Relationship Address Phone USHA CORNEJO Unavailable [address] [place] [address] USHA CORNEJO Unavailable [address] [place] [address] Insurance Providers: All historical and current Section [...] [place] Apr 05, [id number],W P ATIENT SUPPLEMEN ARE 2018 09 [id number] [phone] ILLARD LIU SUPPL 1A ENT [employer] [place] Apr 05, [id number] [address], W [facility] SUPPLEMEN ARE 2018 09 [id number] [phone] ILLARD LIU SUPPL 1A EMENT [employer] [place] Oct 03, [id number] [address], W [facility] SUPPLEMEN ARE [phone] ILLARD LIU SUPPL EMENT MEDICARE MEDICARE PART Oct 03, PART A [id number] [address],W P ATIENT (WNR) (M) A 2013 EV03 [phone] [employer] MEDICARE MEDICARE PART Oct 03, PART B [id number] [address],W P ATIENT (WNR) (M) B 2013 EV03 [phone] [place] MEDICARE MEDICARE PART Oct 03, PART A [id number] [address],W P ATIENT (WNR) (M) A 2013 EV03 [phone] [place] MEDICARE MEDICARE PART Oct 03, PART B [id number] 800 Layla CORNEJO ATIENT (WNR) (M) B 2013 EV03 [phone] [facility] MED[place] MEDIC Apr 05, [id number] [phone] Layla MARTÍNEZ PATIENT OF [place] SUPPLEMEN ARE 2018 09 [id number] 1 AMOS [place] SUPPL 1A EMENT Selected Encounter This section includes the information on record at [place] for the Encounter. Date/Time Encounter Type Encounter Description Reason Provider Source Feb 11, 2021 12:00 Outpatient Encounter EVENT (HISTORICAL) AM IHE Encounter Template Text not used by [place] Plan of Treatment: Future Appointments (+ 6 months) and Future Tests (+/- 45 days) The Plan of Treatment section includes future care activities for the patient from all [place] treatmentfacilities. This section includes future appointments and future orders which are active, pending orscheduled.Future Appointments This section includes appointments that were scheduled to occur 6 months from the date of the Encounter, up to a maximum of 20 appointments. The data comes from all [place] treatment facilities. Appointment Date/Time Appointment Type Appointment Facili ty Name Mar 03, 2021 04:00 PM AMBULATORY MEDICINE [facility] Mar 04, 2021 01:00 PM AMBUL[facility]ORY MEDICINE [facility] Mar 05, 2021 11:30 AM AMBULATORY MEDICINE [facility] Mar 12, 2021 03:30 PM [facility]ORY MEDICINE [facility] May 21, 2021 02:00 PM [facility]ORY MEDICINE [facility] May 21, 2021 02:30 PM AMBULATORY MEDICINE [facility] Lab Results: +/- 30 days of the encounter This section includes the Chemistry and Hematology Lab Results on record with [place] for the patient. Radiology Reports and Pathology Reports are provided separately, in subsequent sections.Lab Results This section contains the Chemistry/Hematology Results that were resulted 30 days before or 30 daysafter the date of the Encounter. Date/Time Source Result Type Result - Unit Interpretation Reference Range Comment Mar 04, 2021 12:36 PM [facility] COVID-19 DIAGNOSTIC PANEL Specimen Type: NASOPHARYNX (DIASORIN) Comment: Diasor in (437) This is an emergency use authorized test. Testing performed on the [employer] MDX PCR instrument. Ordering Provid er: [facility] Judit Report Released Date/Time: Mar 03, 2021 02:07 PM Reporting Lab: [facility] [address] [facility] [address] Performing Lab: [facility] [address] [facility] [address] COVID-19 (DIASORIN) Negative Negative Immunizations: All administered on the encounter date This section contains immunizations associated to the Encounter. Immunization Series Date Issued Reaction Comments COVID-19 (MODERNA), MRNA, LNP-S, PF, 100 MCG OR 3 Feb 50 MCG DOSE Social History: Smoking Status (Most current) and Tobacco Use (All prior to encounter date) This section includes the most current, and the historical, smoking and tobacco-related health factors from the [place] facility where the Encounter took place.Current Smoking Status This section includes the most current smoking, or tobacco-related health factor, from the [place] facility where the Encounter took place. Date/Time Current Smoking Status Comment Facility May 07, 2016 08:37 AM FORMER TOBACCO USE >1Y <7Y [facility] Tobacco Use History This section includes a history of the smoking, or tobacco- related health factors, that were collected on or before the date of the Encounter. The data comes from the [place] facility where the Encounter took place. Date/Time Smoking Status/Tobacco Use Comment [facility] Jun 07, 2015 09:01 AM FORMER TOBACCO USE >1Y <7Y [facility] May 10, 2013 08:37 AM CURRENT TOBACCO USER [facility] May 04, 2012 08:46 AM CURRENT TOBACCO USER [facility] Jan 08, 2011 08:48 AM CURRENT TOBACCO USER [facility]
--- OUTSIDE RECORDS SUMMARY | 2022-02-07 12:11 | XMS_ITS | Encounter Summary ---
:1950 Author Organization [facility] Address [address] [place] [address] Support Name Relationship Address Phone USHA CORNEJO Unavailable [address] [place] [address] USHA CORNEJO Unavailable [address] [place] [address] Insurance Providers: All historical and current Section [...] [place] Apr 05, [id number] [address],W P ATIENT SUPPLEMEN ARE 2018 09 [id number] [phone] ILLARD LIU SUPPL 1A ENT [place] Apr 05, [id number] [address], W [facility] SUPPLEMEN ARE 2018 09 [id number] [phone] ILLARD LIU SUPPL 1A EMENT [employer] [place] Oct 03, [id number] [address], W [facility] SUPPLEMEN ARE [phone] ILLARD LIU SUPPL EMENT MEDICARE MEDICARE PART Oct 03, PART A [id number] [address],W P ATIENT (WNR) (M) A 2013 EV03 [phone] [employer] MEDICARE MEDICARE PART Oct 03, PART B [id number] [address],W P ATIENT (WNR) (M) B 2013 EV03 [phone] [employer] MEDICARE MEDICARE PART Oct 03, PART A [id number] [address],W P ATIENT (WNR) (M) A 2013 EV03 [phone] [place] MEDICARE MEDICARE PART Oct 03, PART B [id number] 800 Layla CORNEJO ATIENT (WNR) (M) B 2013 EV03 [phone] [facility] [place] MED[place] MEDIC Apr 05, [id number] [phone] Layla MARTÍNEZ PATIENT OF [place] SUPPLEMEN ARE 2018 09 [id number] 1 AMOS [place] SUPPL 1A EMENT Selected Encounter This section includes the information on record at [place] for the Encounter. Date/Time Encounter Type Encounter Description Reason Provider Source Feb 24, 2021 01:12 Outpatient Encounter EVENT (HISTORICAL) PM IHE Encounter Template Text not used by [place] Plan of Treatment: Future Appointments (+ 6 months) and Future Tests (+/- 45 days) The Plan of Treatment section includes future care activities for the patient from all [place] treatmentfacilities. This section includes future appointments and future orders which are active, pending orscheduled.Future Appointments This section includes appointments that were scheduled to occur 6 months from the date of the Encounter, up to a maximum of 20 appointments. The data comes from all [place] treatment facilities. Appointment Date/Time Appointment Type Appointment Facili ty Name Mar 03, 2021 04:00 PM AMBULATORY MEDICINE Mar 04, 2021 01:00 PM AMBULATORY MEDICINE [facility] Mar 05, 2021 11:30 AM AMBULATORY MEDICINE Mar 12, 2021 03:30 PM AMBULATORY MEDICINE [facility] May 21, 2021 02:00 PM AMBULATORY MEDICINE [facility] May 21, 2021 02:30 PM AMBULATORY MEDICINE [facility] Lab Results: +/- 30 days of the encounter This section includes the Chemistry and Hematology Lab Results on record with [place] for the patient. Radiology Reports and Pathology Reports are provided separately, in subsequent sections.Lab Results This section contains the Chemistry/Hematology Results that were resulted 30 days before or 30 daysafter the date of the Encounter. Date/Time Source Result Type Result - Unit Interpretation Reference Range Comment Mar 04, 2021 12:36 PM COVID-19 DIAGNOSTIC PANEL Specimen Type: NASOPHARYNX (DIASORIN) Comment: Diasor in (437) This is an emergency use authorized test. Testing performed on the [employer] MDX PCR instrument. Ordering Provid er: ALLYSSA RIZVI Judit Report Released Date/Time: Mar 03, 2021 02:07 PM Reporting Lab: [address] [facility] [phone] Performing Lab: [address] [facility] [address] COVID-19 (DIASORIN) Negative Negative Social History: Smoking Status (Most current) and Tobacco Use (All prior to encounter date) This section includes the most current, and the historical, smoking and tobacco-related health factors from the [facility] where the Encounter took place.Current Smoking Status This section includes the most current smoking, or tobacco-related health factor, from the [facility] where the Encounter took place. Date/Time Current Smoking Status Comment Facility May 07, 2016 08:37 AM FORMER TOBACCO USE >1Y <7Y Tobacco Use History This section includes a history of the smoking, or tobacco- related health factors, that were collected on or before the date of the Encounter. The data comes from the [place] facility where the Encounter took place. Date/Time Smoking Status/Tobacco Use Comment Facil ity Jun 07, 2015 09:01 AM FORMER TOBACCO USE >1Y <7Y May 10, 2013 08:37 AM CURRENT TOBACCO USER May 04, 2012 08:46 AM CURRENT TOBACCO USER Jan 08, 2011 08:48 AM CURRENT TOBACCO USER Encounter Notes: All associated encounter notes This section contains the clinical notes associated to the Encounter. Date/Time Encounter Note(s) Provider Source Feb 24, 2021 01:12 PM NONVA CONSULT: [facility] TITLE: COMMUNITY CARE-ORTHOPEDIC CONSULT STANDARD TITLE: NONVA CONSULT DATE OF NOTE: FEB 24, 2021@13:12 ENTRY DATE: MAR 27, 2021@13:14 AUTHOR: THERESE DE JESUS EXP COSIGNER: URGENCY: STATUS: COMPLETED VistA Imaging - Scanned Document SCANNED DOCUMENT SIGNATURE NOT REQUIRED Electronically Filed: 03/27/2021 by: THERESE DE JESUS VACC MSA
--- OUTSIDE RECORDS SUMMARY | 2022-02-07 12:11 | XMS_ITS | Encounter Summary ---
:1950 Author Organization [facility] Address [address] [place] [address] Support Name Relationship Address Phone USHA CORNEJO Unavailable [address] [place] [address] USHA CORNEJO Unavailable [address] [place] [address] Insurance Providers: All historical and current Section [...] [place] Apr 05, [id number],W P ATIENT SUPPLEMEN ARE 2018 09 [id number] [phone] ILLARD LIU SUPPL 1A EMENT [place] Apr 05, [id number], W [facility] SUPPLEMEN ARE 2018 09 [id number] [phone] ILLARD LIU SUPPL 1A ENT [place] Oct 03, [id number] [address], W [facility] SUPPLEMEN ARE [phone] ILLARD LIU SUPPL EMENT MEDICARE MEDICARE PART Oct 03, PART A [id number] [address],W P ATIENT (WNR) (M) A 2013 EV03 [phone] ILLARD MEDICARE MEDICARE PART Oct 03, PART B [id number] [address],W P ATIENT (WNR) (M) B 2013 EV03 [phone] ILLARD MEDICARE MEDICARE PART Oct 03, PART A [id number] [address],W P ATIENT (WNR) (M) A 2013 EV03 [phone] ILLARD MEDICARE MEDICARE PART Oct 03, PART B [id number] 800 CLEMENTELayla Nakia BAUER (WNR) (M) B 2013 EV03 [phone] AMOS [place] MED[place] MEDIC Apr 05, [id number] [phone] Layla MARTÍNEZ PATIENT OF [facility] ARE 2018 09 [id number] 1 AMOS HATFIELD SUPPL 1A EMENT Selected Encounter This section includes the information on record at ID for the Encounter. Date/Time Encounter Type Encounter Reason Provider Source Description Mar 03, 2021 PRO PHONE TELEPHONE TRIAGE ICD-10-CM Z71.9 CARMITA DE 12:05 PM CALL 5-10 MIN Counseling, C unspecified with Provider Comments: Counseling, unspecified IHE Encounter Template Text not used by ID Assessments - Encounter Diagnoses This section includes the primary and secondary diagnoses documented for the Encounter. Date/Time Primary/Secondary Diagnosis Name Provider Source Diagnosis Mar 03, 2021 PRIMARY CounselingKENISHA MAUREEN C [facility] 12:05 PM unspecified Plan of Treatment: Future Appointments (+ 6 months) and Future Tests (+/- 45 days) The Plan of Treatment section includes future care activities for the patient from all ID treatmentfacilities. This section includes future appointments and future orders which are active, pending orscheduled.Future Appointments This section includes appointments that were scheduled to occur 6 months from the date of the Encounter, up to a maximum of 20 appointments. The data comes from all ID treatment facilities. Appointment Date/Time Appointment Type Appointment Facili ty Name Mar 04, 2021 01:00 PM AMBULATORY - MEDICINE [facility] Mar 05, 2021 11:30 AM AMBULATORY - MEDICINE [facility] Mar 12, 2021 03:30 PM AMBULATORY - MEDICINE [facility] May 21, 2021 02:00 PM AMBULATORY - MEDICINE [facility] May 21, 2021 02:30 PM AMBULATORY - MEDICINE [facility] Lab Results: +/- 30 days of the encounter This section includes the Chemistry and Hematology Lab Results on record with ID for the patient. Radiology Reports and Pathology Reports are provided separately, in subsequent sections.Lab Results This section contains the Chemistry/Hematology Results that were resulted 30 days before or 30 daysafter the date of the Encounter. Date/Time Source Result Type Result - Unit Interpretation Reference Range Comment Mar 04, 2021 12:36 PM [facility] COVID-19 DIAGNOSTIC PANEL Specimen Type: NASOPHARYNX (DIASORIN) Comment: Diasor in (437) This is an emergency use authorized test. Testing performed on the IdeaString MDX PCR instrument. Ordering Provid er: TOYMUNAALLYSSA Morales Judit Report Released Date/Time: Mar 03, 2021 02:07 PM Reporting Lab: [facility] [address] [facility] [id number] Performing Lab: [facility] [address] [facility] [id number] COVID-19 (DIASORIN) Negative Negative Social History: Smoking Status (Most current) and Tobacco Use (All prior to encounter date) This section includes the most current, and the historical, smoking and tobacco-related health factors from the ID facility where the Encounter took place.Current Smoking Status This section includes the most current smoking, or tobacco-related health factor, from the ID facility where the Encounter took place. Date/Time Current Smoking Status Comment Facility May 07, 2016 08:37 AM FORMER TOBACCO USE >1Y <7Y [facility] Tobacco Use History This section includes a history of the smoking, or tobacco- related health factors, that were collected on or before the date of the Encounter. The data comes from the ID facility where the Encounter took place. Date/Time Smoking Status/Tobacco Use Comment [facility] Jun 07, 2015 09:01 AM FORMER TOBACCO USE >1Y <7Y [facility] May 10, 2013 08:37 AM CURRENT TOBACCO USER [facility] May 04, 2012 08:46 AM CURRENT TOBACCO USER [facility] Jan 08, 2011 08:48 AM CURRENT TOBACCO USER [facility] Encounter Notes: All associated encounter notes This section contains the clinical notes associated to the Encounter. Date/Time Encounter Note(s) Provider Source Mar 03, 2021 12:05 PM TELEPHONE ENCOUNTER NOTE: NAMITA DE [facility] LOCAL TITLE: TELEPHONE CARE NURSING TRIAGE STANDARD TITLE: TELEPHONE ENCOUNTER NOTE DATE OF NOTE: MAR 03, 2021@12:05:43 ENTRY DATE: MAR 03, 2021@12:17:15 AUTHOR: NAMITA DE EXP COSIGNER: URGENCY: STATUS: COMPLETED Chief Complaint: Sore Throat The following identifiers were used to verify th is patient: DOB. AKHTAR. Comments: NURSES NOTES: [place] has POSITIVE COVID-19 scre en at time of call; see below PATIENT CONCERN/DURATION/ONSET: [place] c/o I thinking I'm getting bronchitis. reports symptoms X1 day: low grade fever (in 99' s), mild cough with yellowish mucous, sore throat 2- 06/12. [place] denies white patches in throat, SO B, wheezes, n/v/d, h/a, chest pain, or LOC at time of call. Verbalizes pneumot horax in November with 1 month hospitalization and still recovering. WHAT HAS PATIENT TRIED TO TREAT THE SYMPTOMS: wa rm fluids, acetaminophen HISTORY/PREVIOUS TREATMENT: WHAT IS PATIENT GOAL FOR THE CALL: treatment for symptoms Was the [facility] considered (TELE or VVC)? Yes; t riage upgraded because of Veterans recent medication history/injuries. 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 This RN recommends assigned care team interaction within 24 hours d ue to severity of symptoms; Advised [id number] interactions with a ssigned care team are limited at this time due to COVID-19 protocol. Advised v eteran interaction available with [facility] within recommended timeframe and [place] agrees to referral of care to [facility]; direct hand off given to [facility]. Advised if their symptoms change/worsen they may seek care at ID ER 26/10, or local medical facility (without pre-authorization of care/paym ent) (disclaimer read and explained). Home care instructions and warning s igns provided. verbalizes understanding via teach back method. Apaja message sent to [facility] with appointment date/time as scheduled with [facility] at time of call. Author: NAMITA DE Caller Area: [address] [place] [address] The patient, AMY CORNEJO ([id number]) Ph one: called the call center. Caller Response: APPT LESS THAN 24 HOURS FINANCIAL DISCLAIMER The following disclaimer was read to the caller: advised that recommendation for care pro vided during the call does not constitute an approval or authorization for payment by the ID or its staff. Triage Staff provided the [facility] Call Center [phone] number and instruction for notifica tion of ER visit within 72 hours. Class Code: Counseling, unspecified. Contact By not following the recomme nded advice could make your symptoms worse, or even life threatening. Advised to contact Telephone Care for any questions, concerns, new or worsening symptoms; services available 26/10. Imported Information: Clinical Contact/Call Center Coronavirus Disease 2019 (COVID-19) Screen, shanita. July 2020 DIAGNOSIS AND TESTING STATUS: Has [place] been diagnosed with COVID-19: () Yes* Date: (continue screening) (x) No (Continue Screening) Comment(s): Is waiting for COVID-19 test results: () Yes (Continue Screening) (x) No (Continue Screening) Comment: SCREEN: Signs and Symptoms: a. Fever or chills: (x) Yes (x) Fever () Chills () No Comment(s): b. New or worsening cough or shortness of breat h: (x) Yes Check all that apply: (x) Cough () Shortness of breath (Dyspnea) () No Comment(s): c. Any cold or flu-like symptoms: (x) Yes Check all that apply: () Cold like symptoms () Runny Nose (Rhinorrhea) (x) Sore Throat () Flu-like symptoms () Fatigue () Muscle Pain (Myalgia) () No Comment(s): d. New onset diarrhea, nausea or vomiting: () Yes Check all that apply: () Diarrhea () Nausea () Vomiting (x) No Comment(s): e. New onset headache, loss of taste or loss of smell () Yes Check all that apply: () Headache () Loss of taste () Loss of smell (x) No Comment(s): EXPOSURE: Exposure (within 6 feet for more than 15 minute s) in the last two weeks (14 days) to someone with known or suspected matias e of COVID-19: () Yes (x) No Comment(s): SCREEN RESULT: Any symptom or exposure= positive screen (x) POSITIVE SCREEN: Patient has a Positive sym ptom and/or exposure. Follow-up required. () Negative Screen Advised : The best way to prevent illness is to avoid bein g exposed to this virus. However, as a reminder, the Center for Disease C ontrol and Prevention (CDC) recommends everyday actions to help prevent the spread of respiratory diseases, including: o Avoid close contact with people who are sick. o Avoid touching your eyes, nose, and mouth. o Stay home when you are sick. o Cover your cough or sneeze with a tissue, then throw the tissue in the trash. o Wash your hands often with soap and water for at least 20 seconds, especially after going to the bathroom; before e ating; and after blowing your nose, coughing, or sneezing. o If soap and water are not readily available, u se an alcohol-based hand load dispatcher local with at least 60% alcohol. Always wash hands with soap and water if hands are visibly dirty. o Clean and disinfect frequently touched objects and surfaces using a regular household cleaning spray or wipe. o Follow CDCs recommendations for using a face m ask. A face mask should definitely be used by people who have COVID-19 and are showing symptoms. This is to protect oth ers from the risk of getting infected. An excellent site for inform ation is Angella Joy.gov and CDC.Gov/coronavirus. Contact us at [facility]: Yevgeniy , [place] , [facility] if you have s/s of Coronavirus as listed ab ove. verbalized understanding via teach back method. Evaluation/Management Code: HC PRO PHONE CALL 5- 10 MIN ([id number]). Starting at: 03/03/2021 @ 12:05:43 PM Ending at: 03/03/2021 @ 12:12:24 PM Length: 6 minutes. Nurse Notes: Protocol Used: Sore Throat Protocol-Based Disposition: Home Care Override (Final) Disposition: Call PCP or Video Visit within 24 Hours Override Reason: Nurse judgment Positive Triage Question: * [1] Sore throat is the only symptom AND [2] so re throat present < 48 hours Care Advice Discussed: * Reassurance and Education - Most mild sore throats and intermittent sore throats are just part of a cold and can be treated at home. - The presence of a cough, hoarseness or nasal symptoms points to a viral infection as the cause of the sore throat. - Dry air and smoking can cause or aggravate a sore throat. * Sore Throat - Here are some simple things you can do to juan at and reduce sore throat pain. - Sip warm chicken broth or apple juice. - Suck on hard candy or an ebjy-aiz-zbioxbb thr oat lozenge. - Gargle with warm salt water four times a day. To make salt water, put 1/2 teaspoon of salt in 8 oz (240 ml) of warm water. - Avoid cigarette smoke. * Soft Diet - Eat a soft diet. - Cold drinks, popsicles, and milk shakes are e specially good. Avoid citrus fruits. * Drink Plenty Liquids - Drink plenty of liquids. This is important to prevent dehydration. - A healthy adult should drink 8 cups (240 ml) or more of liquid each day. * Pain and Fever Medicines - Acetaminophen - Extra Strength Tylenol: Take 1,000 mg (two 500 mg pills) every 8 hours as needed. Each Extra Strength Tyl enol pill has 500 mg of acetaminophen. The most you should take each day is 3,000 mg (6 pills a day). - Ibuprofen (e.g., Motrin, Advil): Take 400 mg (two 200 mg pills) by mouth every 6 hours. The most you should take each day is 1,200 mg (six 200 mg pills), unless your doctor has told you to take more. * Reasons To Call Back - Sore throat is the only symptom And lasts ove r 48 hours - Sore throat with cold symptoms, and sore thro at lasts over 5 days - Fever lasts over 3 days - You become worse Negative Triage Questions: * SEVERE difficulty breathing (e.g., struggling for each breath, speaks in single words, stridor) * Sounds like a life-threatening emergency to [facility] triager * [1] Drooling or spitting out saliva (because c an't swallow) AND [2] normal breathing * Unable to open mouth completely * [1] Difficulty breathing AND [2] not severe * Fever > 104 F (40 C) * [1] Refuses to drink anything AND [2] for > 12 hours * [1] Drinking very little AND [2] dehydration s uspected (e.g., no urine > 12 hours, very dry mouth, very lightheaded) * Patient sounds very sick or weak to the triage r * SEVERE (e.g., excruciating) throat pain * [1] Pus on tonsils (back of throat) AN D [2] fever AND [3] swollen neck lymph nodes (glands) * [1] Rash AND [2] widespread (especially chest and abdomen) * Earache also present * Fever present > 3 days (72 hours) * Diabetes mellitus or weak immune system (e.g., HIV positive, cancer chemo, splenectomy, organ transplant, chronic steroids) * History of rheumatic fever * [1] Adult is leaving on a trip AND [2] request s an antibiotic NOW * [1] Positive throat culture or rapid strep new[place] t (according to lab, PCP, caller, etc.) AND [2] NO standing order to call in prescription for antibiotic * [1] Exposure to family member (or spou se or boyfriend/girlfriend) with test- proven strep AND [2] within last 10 days * [1] Sore throat is the only symptom AND [2] pr esent > 48 hours * [1] Sore throat with cough/cold symptoms AND [ 2] present > 5 days Patient's Email Address: Type of call: TC SYMPTOM APPT. /jamil/ Namita De, RN, BSN, MSN Ed VISN23 Daytime Nurse Triage Signed: 03/03/2021 12:17
--- OUTSIDE RECORDS SUMMARY | 2022-02-07 12:11 | XMS_ITS | Encounter Summary ---
:1950 Author Organization [facility] Address [address] [place] [address] Support Name Relationship Address Phone USHA CORNEJO Unavailable [address] [place] [address] USHA CORNEJO Unavailable [address] [place] [address] Insurance Providers: All historical and current Section [...] [place] Apr 05, [id number] [address],W P ATIENT SUPPLEMEN ARE 2018 09 [id number] [phone] ILLARD LIU SUPPL 1A EMENT [place]BS [place] Apr 05, [id number] [address], W [facility] SUPPLEMEN ARE 2018 09 [id number] [phone] ILLARD LIU SUPPL 1A ENT BC[place] Oct 03, [id number] [address], W [facility] SUPPLEMEN ARE [phone] ILLARD LIU SUPPL EMENT MEDICARE MEDICARE PART Oct 03, PART A [id number] [address],W P ATIENT (WNR) (M) A 2013 EV03 [phone] ILL[place] MEDICARE MEDICARE PART Oct 03, PART B [id number] [address],W P ATIENT (WNR) (M) B 2013 EV03 [phone] ILL[place] MEDICARE MEDICARE PART Oct 03, PART A [id number] [address],W P ATIENT (WNR) (M) A 2013 EV03 [phone] [place] MEDICARE MEDICARE PART Oct 03, PART B [id number] 800 CLEMENTELayla OLIVAREZ (WNR) (M) B 2013 EV03 [phone] AM[facility] [place] BC MEDICARE MEDIC Apr 05, [id number] [phone] Layla MARTÍNEZ PATIENT OF [facility] ARE 2018 09 [id number] 1 AMOS HATFIELD SUPPL 1A EMENT Selected Encounter This section includes the information on record at [facility] for the Encounter. Date/Time Encounter Type Encounter Reason Provider Source Description Mar 03, 2021 Outpatient TELEPHONE TRIAGE ICD-10-CM J06.9 MARY HUMPHRIES 04:00 PM Encounter Acute upper respiratory infection, unspecified with Provider Comments: Acute upper Respiratory Infection, unspecified IHE Encounter Template Text not used by [place] Assessments - Encounter Diagnoses This section includes the primary and secondary diagnoses documented for the Encounter. Date/Time Primary/Secondary Diagnosis Name Provider Source Diagnosis Mar 03, 2021 PRIMARY Acute upper MARY HUMPHRIES [facility] 04:00 PM respiratory infection, unspecified Plan of Treatment: Future Appointments (+ 6 months) and Future Tests (+/- 45 days) The Plan of Treatment section includes future care activities for the patient from all [place] treatmentfacilities. This section includes future appointments and future orders which are active, pending orscheduled.Future Appointments This section includes appointments that were scheduled to occur 6 months from the date of the Encounter, up to a maximum of 20 appointments. The data comes from all [place] treatment facilities. Appointment Date/Time Appointment Type Appointment Facili ty Name Mar 04, 2021 01:00 PM AMBULATORY - MEDICINE [facility] Mar 05, 2021 11:30 AM AMBULATORY - MEDICINE [facility] Mar 12, 2021 03:30 PM AMBULATORY - MEDICINE [facility] May 21, 2021 02:00 PM AMBULATORY - MEDICINE [facility] May 21, 2021 02:30 PM [facility] Lab Results: +/- 30 days of the encounter This section includes the Chemistry and Hematology Lab Results on record with [facility] for the patient. Radiology Reports and Pathology Reports are provided separately, in subsequent sections.Lab Results This section contains the Chemistry/Hematology Results that were resulted 30 days before or 30 daysafter the date of the Encounter. Date/Time Source Result Type Result - Unit Interpretation Reference Range Comment Mar 04, 2021 12:36 PM [facility] COVID-19 DIAGNOSTIC PANEL Specimen Type: NASOPHARYNX (DIASORIN) Comment: Silvino in (437) This is an emergency use authorized test. Testing performed on the [employer] MDX PCR instrument. Ordering Provid er: MARY HUMPHRIES Report Released Date/Time: Mar 03, 2021 02:07 PM Reporting Lab: [address] [address] Performing Lab: [facility] [address] [facility] [address] COVID-19 (DIASORIN) Negative Negative Social History: Smoking Status (Most current) and Tobacco Use (All prior to encounter date) This section includes the most current, and the historical, smoking and tobacco-related health factors from the [facility] where the Encounter took place.Current Smoking Status This section includes the most current smoking, or tobacco-related health factor, from the [place] facility where the Encounter took place. Date/Time Current Smoking Status Comment Facility May 07, 2016 08:37 AM FORMER TOBACCO USE >1Y <7Y [facility] Tobacco Use History This section includes a history of the smoking, or tobacco- related health factors, that were collected on or before the date of the Encounter. The data comes from the [place] facility where the Encounter took place. Date/Time Smoking Status/Tobacco Use Comment [facility] Jun 07, 2015 09:01 AM FORMER TOBACCO USE >1Y <7Y [facility] May 10, 2013 08:37 AM CURRENT TOBACCO USER [facility] May 04, 2012 08:46 AM CURRENT TOBACCO USER [facility] Jan 08, 2011 08:48 AM CURRENT TOBACCO USER [facility] Encounter Notes: All associated encounter notes This section contains the clinical notes associated to the Encounter. Date/Time Encounter Note(s) Provider Source Mar 03, 2021 01:45 PM TELEPHONE ENCOUNTER NOTE: MARY HUMPHRIES [facility] LOCAL TITLE: TELEPHONE CARE PROVIDER NOTE STANDARD TITLE: TELEPHONE ENCOUNTER NOTE DATE OF NOTE: MAR 03, 2021@13:45 ENTRY DATE: MAR 03, 2021@13:45:24 AUTHOR: MARY HUMPHRIES EXP COSIGNER: URGENCY: STATUS: COMPLETED AMY CORNEJO 70 MALE was identified using full name and last 4 of SSN PENICILLIN (Jan 08, 2013) Per rn pool note: c/o I thinking I'm getting bronchitis. [place] reports symptoms X1 day: low grade fever (in 99's), mild cough with yellowish mucous, sore throat 2-06/12. denies white patches in throat, SOB, wheezes, n/v/d, h/a, chest pain, or LOC at t hanane of call. Verbalizes pneumothorax in November with 1 month hospitalization and still recovering. (Refer to full rn pool note for additional inf ormation) [place] call back number: Chief Complaint: Cough Pertinent Clinical History: Tobacco dependence i n remission, Traumatic right pneumo- and hemothorax s/p right thoracoscopy, d rainage, decortication-12/04/20 DC. 70 year old vet c/o cough x1 day that is mainly productive of yellow colored sputum-reports as being in the throat. Reports o ne temp elevated at 99.4, currently 98.8, sinus conges tion, HERNANDEZ to frontal region that is mild, rhinorrhea of clear drainage and sore throat w/o di fficulty swallowing. Denies sob, chest congestion, fatigue, body aches, n/v/d, anosmia/ ageusia, PND. Nonsmoker-quit 2013, no environmental allergies. No known expos ure to anyone ill. Is retired and has not had covid19, has been fully vaccinat ed with booster x1 month ago. Has only been using cough drops for s/s and stat es is still recovering from pneumo/hemothorax. Is requesting options for s/s . Review of Lab/X-ray/Consults : 05/23 & 06/20/20 Covid vaccines. 12/13/20 PCP letter reviewed-The right lung shows less fluid than y our prior images. There is still considerable fluid and consolidation of the right lung with possibly still a slight amount of air or pneumothorax. 12/06/20 RN note reviewed. 10/24/20 PCP note reviewed. 12/11/20 labs reviewed. Assessment/Diagnosis: Acute Upper Respiratory In fection Plan: 1. Plenty of fluids, cough drops prn. 2. Tylenol prn, otc cough/cold medications prn. Declines guaifensen. 3. Saline nasal rinses prn. Warm compresses to sinus regions with gentle massage prn. 4. Covid19 testing tomorrow at [facility], isolate while awaiting results. 5. Monitor for worsening s/s. Education/Counseling: Diagnosis/rationale for recommendations was disc ussed with . Call-back instructions: was asked to call back if symptoms do no t improve within (2-3) days, or if: sob, chest congestion or fevers not controlled. Thank you for the opportunity to care for this v eteran! 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
--- OUTSIDE RECORDS SUMMARY | 2022-02-07 12:13 | XMS_ITS | Encounter Summary ---
:1950 Author Organization [facility] Address [address] [place] [id number] Support Name Relationship Address Phone USHA CORNEJO Unavailable [address] [place] [address] USHA CORNEJO Unavailable [address] [place] [address] Insurance Providers: All historical and current Section [...] Haji [place] Apr 05, [id number] P ATIENT SUPPLEMEN ARE 2018 09 [id number] [phone] ILLARD LIU SUPPL 1A EMENT [place]BS [place] Apr 05, [id number], W [facility] SUPPLEMEN ARE 2018 09 [id number] [phone] ILLARD LIU SUPPL 1A ENT BCBS [place] MEDIC Oct 03, [id number] [address], W [facility] SUPPLEMEN ARE [phone] ILLARD LIU SUPPL EMENT MEDICARE MEDICARE PART Oct 03, PART A [id number] [address],W P ATIENT (WNR) (M) A 2013 EV03 [phone] ILLARD MEDICARE MEDICARE PART Oct 03, PART B [id number] [address],W P ATIENT (WNR) (M) B 2013 EV03 [phone] ILLARD MEDICARE MEDICARE PART Oct 03, PART A [id number] [address],W P ATIENT (WNR) (M) A 2013 EV03 [phone] ILL[place] MEDICARE MEDICARE PART Oct 03, PART B [id number] 800 CLEMENTELayla OLIVAREZ (WNR) (M) B 2013 EV03 [phone] AMOS [place] MED[place] MEDIC Apr 05, [id number] [phone] Layla MARTÍNEZ [facility] OF [place] [facility] 2018 09 [id number] 1 AMOS [place]AT[place] SUPPL 1A EMENT Selected Encounter This section includes the information on record at [place] for the Encounter. Date/Time Encounter Type Encounter Reason Provider Source Description Dec 29, 2021 03:29 Outpatient TELEPHONE TRIAGE TRISHA ESQUIVEL PM Encounter RYANN ROQUE Encounter Template Text not used by [place] [...] 20, 2022 07:30 AM AMBULATORY - SURGERY [facility] Lab Results: +/- 30 days of the [...] Reference Range Comment Dec 22, 2021 08:49 [facility] PROSTATE SPECIFIC Specimen T ype: SERUM [...] Dec 25, 2020 10:29 AM Reporting Lab: [facility] [address] [place] [address] Performing Lab: [facility] [address] [place] [address] PROSTATE SPECIFIC ANTIGEN 17.59 H 0-4 Dec 22, 2021 08:49 [facility] URINALYSIS Specimen Typ e: URINE AM Comment: Patien ts with asymptomatic bacteriuria/funguria/pyuria without UTI symptoms usually do not require treatment with an antimicrobial agent. Ordering Provid er: MALINA BURK Report Released Date/Time: Dec 25, 2020 10:29 AM Reporting Lab: [facility] [address] [place] [address] Performing Lab: [facility] [address] [place] [address] SPECIFIC GRAVITY 1.012 1.000-1.030 URINE KETONES Neg Neg-Trace URINE GLUCOSE Neg Neg-Trace URINE PROTEIN Neg Neg-Trace URINE PH 5.5 5.0-8.0 URINE WBC/HPF 4-7 0-7 URINE BACTERIA 1+ URINE RBC/HPF 8-20 H 0-3 URINE BLOOD 2+ Neg-Trace NITRITE, URINE Neg Neg LEUKOCYTE ESTERASE Trace Neg-Trace URINE MICROSCOPIC YES Social History: Smoking Status (Most current) and [...] 08:37 AM FORMER TOBACCO USE >1Y <7Y [facility] Tobacco Use History This section includes a history of the smoking, or tobacco- related health factors, that were collected on or before the date of the Encounter. The data comes from the [place] facility where the Encounter took place. Date/Time Smoking Status/Tobacco Use Comment [facility] it Jun 07, 2015 09:01 AM FORMER TOBACCO USE >1Y <7Y [facility] May 10, 2013 08:37 AM CURRENT TOBACCO USER [facility] May 04, 2012 08:46 AM CURRENT TOBACCO USER [facility] Jan 08, 2011 08:48 AM CURRENT TOBACCO USER [facility] Radiology Reports: +/- 30 days of [...] the Encounter. The data comes from all [place] treatment facilities. Date/Time Radiology Report Provider Source Dec 25, 2021 11:[address] CHEST W/O CONTRAST: STEPHON MCKNIGHT [facility] AMY CORNEJO [id number] -[birth year] 7 M Exm Date: DEC 25, 2021@11:23 Req Phys: AUGUSTINE ENRIQUEZ Loc: [facility] PACT TEA M 2 (Req'g Loc) Img Loc: OOS CT SCAN Service: Unknown (Case [id number] COMPLETE) CT CHEST W/O CONTRAST (CT De tailed) CPT:78944 Reason for Study: tobacco use, lung cancer scre en Clinical History: Coordinate with: Urology Please contact the ordering provider at Ext. na or pager for critical results. Imaging Status Past 90 Days: No data available Report Status: Verified Date Reported: DEC 25, 2021 Date Verified: DEC 25, 2021 Custom Protection Officer E-Sig:/ES/Setphon Mcknight MD Report: EXAMINATION: CT chest without [...] Primary Interpreting Staff: Stephon Mcknight MD, Radiologist [facility] ([facility] /MIKEL Pathology Reports: +/- 30 days of [...] the Encounter. The data comes from all [place] treatment facilities. Date/Time Pathology Report Provider Source Dec 22, 2021 08:49 AM MICROBIOLOGY REPORT: [facility] Accession [UID]: [id number] [[id number]] Receive d: Dec 23, 2021@07:51 Collection sample: URINE Collection date: Dec 08:49 Provider: MALINA BURK Test(s) ordered: CULT, URINE ................. completed: Dec 25, 2021 10:39 * BACTERIOLOGY FINAL REPORT => Dec 25, 2021 10:5 4 TECH CODE: [id number] CULTURE RESULTS: PSEUDOMONAS AERUGINOSA - Quanti ty: 70,000 CFU/mL ANTIBIOTIC SUSCEPTIBILITY TEST RESULTS: PSEUDOMONAS AERUGINOSA : SUSC INTP GENTAMICIN.................... <=1 S CIPROFLOXACIN................. S S CEFTAZIDIME................... 4 S TOBRAMYCIN.................... <=1 S IMIPENEM (GR NEG)............. 1 S PIPER/TAZO.................... 8 S LEVOFLOXACIN(GN).............. I I =--=--=--=--=--=--=--=--=--=--=--=--=--= --=--=--=--=--=--=--=--=--=--=--=--=-- Performing Laboratory: Bacteriology Report Performed By: [facility] [CLIA# [id number]] [address] [place] [id number] Encounter Notes: All associated encounter notes This section contains the clinical notes associated to the Encounter. Date/Time Encounter Note(s) Provider Source Dec 29, 2021 03:29 PM RN PROGRESS NOTE: TRISHA ESQUIVEL [facility] LOCAL TITLE: CCC: CLINICAL TRIAGE STANDARD TITLE: RN PROGRESS NOTE DATE OF NOTE: DEC 29, 2021@15:29:58 ENTRY DATE: DEC 29, 2021@15:29:58 AUTHOR: TRISHA ESQUIVEL COSIGNER: URGENCY: STATUS: COMPLETED CCC: CLINICAL TRIAGE Has ADDENDA Patient Demographics Patient Name: AMY CORNEJO Patient Primary Address: [address] [place] [address]
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 This content writer was unable to tr ack medication via [facility] and this content writer conferenced ca;; with pharmacy and was mailed from [facility] pharmacy today so expected delivery in 2-3 days. phone number of pharmacy is [phone]. HISTORY/PREVIOUS TREATMENT: last urology appoin tment on 12/25/21. cipro ordered for 30 day supply on 12/25/21 WHAT IS PATIENT GOAL FOR THE CALL: ''short supply of cipro called in for car pick up driver to day.'' GEOPHYSICAL MANAGER DISPOSITION: Triage not completed at time of call as denies new or worsening signs or symptoms at this time. Th is content writer attempted warm handoff to urology clinic, without availability. Advised caller note placed and Message Invoice Checker s ent to urology team for follow-up. Caller verbalized understanding through teach back method at time of call. Best contact phone for is [phone] a nd he is hoping for call back today. Utilized the Triage Tool: No Patient Disposition Patient/Caregiver agrees to plan of care: Yes Summary of Actions Other course(s) of action Generated msg to PACT/Provider Alternative courses of action: and to urology te am Clinical Contact Center Codes Clinic/Location: V23 FAR PHONE CCC RN /jamil/ TRISHA ESQUIVEL RN, V23 [facility] Signed: 12/29/2021 15:30 Receipt Acknowledged By: 12/29/2021 15:51 /es/ Estela Turner LPN Surgery and Specialty Care 12/29/2021 15:56 /es/ MALINA BURK PA-C UROLOGY CLINIC 12/29/2021 ADDENDUM STATUS: COMPLETED 5 day supply called in to [facility] in [place] by SANAM Burk speaking to Rose Mary. Instructed to only take 25 days of the delayed supply that is in the mail. Only to take a total of 30 days. verbalized understanding. /jamil/ Estela Turner LPN Surgery [facility] Specialty Care Signed: 12/29/2021 15:56
--- OUTSIDE RECORDS SUMMARY | 2022-02-07 12:14 | XMS_ITS | Encounter Summary ---
:1950 Author Organization [facility] Address [address] [place] [address] Support Name Relationship Address Phone USHA CORNEJO Unavailable [address] [place] [address] USHA CORNEJO Unavailable [address] [place] [address] Insurance Providers: All historical and current Section [...] [place] Apr 05, [id number] [address],W P ATIENT SUPPLEMEN ARE 2018 09 [id number] [phone] ILLARD LIU SUPPL 1A EMENT [place]BS [place] Apr 05, [id number] [address], W [facility] SUPPLEMEN ARE 2018 09 [id number] [phone] ILLARD LIU SUPPL 1A ENT BCBS [place] MED[place] Oct 03, [id number] [address], W [facility] SUPPLEMEN ARE [phone] ILLARD LIU SUPPL EMENT MEDICARE MEDICARE PART Oct 03, PART B [id number] [address],W P ATIENT (WNR) (M) B 2013 EV03 [phone] ILLARD MEDICARE MEDICARE PART Oct 03, PART A [id number] [address],W P ATIENT (WNR) (M) A 2013 EV03 [phone] ILL[place] MEDICARE MEDICARE PART Oct 03, PART A [id number] [address],W P ATIENT (WNR) (M) A 2013 EV03 [phone] ILL[place] MEDICARE MEDICARE PART Oct 03, PART B [id number] 800 CLEMENTELayla OLIVAREZ (WNR) (M) B 2013 EV03 [phone] AMOS [place] BC MEDICARE MEDIC Apr 05, [id number] [phone] Layla MARTÍNEZ [facility]IENT [place] [facility] 2018 09 [id number] 1 AMOS HATFIELD SUPPL 1A EMENT Selected Encounter This section includes the information on record at [place] for the Encounter. Date/Time Encounter Type Encounter Reason Provider Source Description Dec 30, 2021 02:49 Outpatient TELEPHONE TRIAGE TRISHA ESQUIVEL PM Encounter RYANN ROQUE Encounter Template Text not used by [place] Plan of Treatment: Future Appointments (+ 6 months) and Future Tests (+/- 45 days) The Plan of Treatment section includes future care activities for the patient from all [place] treatmentfacilities. This section includes future appointments and future orders which are active, pending orscheduled.Future Appointments This section includes appointments that were scheduled to occur 6 months from the date of the Encounter, up to a maximum of 20 appointments. The data comes from all [place] treatment facilities. Appointment Date/Time Appointment Type Appointment Facili ty Name Feb 19, 2022 09:00 AM AMBULATORY - MEDICINE [facility] CARL Feb 20, 2022 07:30 AM AMBULATORY - SURGERY [facility] Lab Results: +/- 30 days of the encounter This section includes the Chemistry and Hematology Lab Results on record with [place] for the patient. Radiology Reports and Pathology Reports are provided separately, in subsequent sections.Lab Results This section contains the Chemistry/Hematology Results that were resulted 30 days before or 30 daysafter the date of the Encounter. Date/Time Source Result Type Result - Unit Interpretation Reference Range Comment Dec 22, 2021 08:49 [facility] PROSTATE SPECIFIC Specimen T ype: SERUM [...] Dec 25, 2020 10:29 AM Reporting Lab: [facility] [address] [place] [address] Performing Lab: [facility] [address] [place] [address] PROSTATE SPECIFIC ANTIGEN 17.59 H 0-4 Dec 22, 2021 08:49 [facility] URINALYSIS Specimen Typ e: URINE AM Comment: Patien ts with asymptomatic bacteriuria/funguria/pyuria without UTI symptoms usually do not require treatment with an antimicrobial agent. Ordering Provid er: MALINA BURK Report Released Date/Time: Dec 25, 2020 10:29 AM Reporting Lab: [facility] [address] [place] [address] Performing Lab: [facility] [address] [place] [address] SPECIFIC GRAVITY 1.012 1.000-1.030 URINE KETONES Neg [...] smoking and tobacco-related health factors from the [place] facility where the Encounter took place.Current Smoking Status This section includes the most current smoking, or tobacco-related health factor, from the [place] facility where the Encounter took place. Date/Time Current Smoking Status Comment Facility May 07, 2016 08:37 AM FORMER TOBACCO USE >1Y <7Y [facility] Tobacco Use History This section includes a history of the smoking, or tobacco- related health factors, that were collected on or before the date of the Encounter. The data comes from the [place] facility where the Encounter took place. Date/Time Smoking Status/Tobacco Use Comment [facility] it Jun 07, 2015 09:01 AM FORMER TOBACCO USE >1Y <7Y [facility] May 10, 2013 08:37 AM CURRENT TOBACCO USER [facility] May 04, 2012 08:46 AM CURRENT TOBACCO USER [facility] Jan 08, 2011 08:48 AM CURRENT TOBACCO USER [facility] Radiology Reports: +/- 30 days of [...] the Encounter. The data comes from all [place] treatment facilities. Date/Time Radiology Report Provider Source Dec 25, 2021 11:[address] CHEST W/O CONTRAST: STEPHON MCKNIGHT [facility] AMY CORNEJO [id number] -[birth year] 9 M Exm Date: DEC 25, 2021@11:23 Req Phys: AUGUSTINE ENRIQUEZ Loc: [facility] PACT TEA M 2 (Req'g Loc) Img Loc: OOS CT SCAN Service: Unknown (Case [id number] COMPLETE) CT CHEST W/O CONTRAST (CT De tailed) CPT:10753 Reason for Study: tobacco use, lung cancer scre en Clinical History: Coordinate with: Urology Please contact the ordering provider at Ext. na or pager for critical results. Imaging Status Past 90 Days: No data available Report Status: Verified Date Reported: DEC 25, 2021 Date Verified: DEC 25, 2021 Microfilm Machine Operator E-Sig:/ES/Stephon Mcknight MD Report: EXAMINATION: CT chest [...] Primary Interpreting Staff: Stephon Mcknight MD, Radiologist [facility] /MIKEL Pathology Reports: +/- 30 days of [...] the Encounter. The data comes from all [place] treatment facilities. Date/Time Pathology Report Provider Source Dec 22, 2021 08:49 AM MICROBIOLOGY REPORT: [facility] Accession [UID]: [id number] [[id number]] Receive d: Dec 23, 2021@07:51 Collection sample: URINE Collection date: Dec 08:49 Provider: MALINA BURK Test(s) ordered: CULT, URINE ................. completed: Dec 25, 2021 10:39 * BACTERIOLOGY FINAL REPORT => Dec 25, 2021 10:5 4 TECH CODE: [id number] CULTURE RESULTS: PSEUDOMONAS AERUGINOSA - Quanti ty: 70,000 CFU/mL ANTIBIOTIC SUSCEPTIBILITY TEST RESULTS: PSEUDOMONAS AERUGINOSA : SUSC INTP GENTAMICIN.................... <=1 S CIPROFLOXACIN................. S S CEFTAZIDIME................... 4 S TOBRAMYCIN.................... <=1 S IMIPENEM (GR NEG)............. 1 S PIPER/TAZO.................... 8 S LEVOFLOXACIN(GN).............. I I =--=--=--=--=--=--=--=--=--=--=--=--=--= --=--=--=--=--=--=--=--=--=--=--=--=-- Performing Laboratory: Bacteriology Report Performed By: [facility] [CLIA# [id number]] [address] [place] [address], [place] [address] Encounter Notes: All associated encounter notes This section contains the clinical notes associated to the Encounter. Date/Time Encounter Note(s) Provider Source Dec 30, 2021 02:50 PM RN PROGRESS NOTE: TRISHA ESQUIVEL [facility] LOCAL TITLE: CCC: CLINICAL TRIAGE STANDARD TITLE: RN PROGRESS NOTE DATE OF NOTE: DEC 30, 2021@14:50 ENTRY DATE: DEC 30, 2021@14:50 AUTHOR: TRISHA ESQUIVEL COSIGNER: URGENCY: STATUS: COMPLETED Patient Demographics Patient Name: AMY CORNEJO Patient Primary Address: [address] [place] [address]
[place] [address] Patient : 1950 SSN: [id number] Patient Age: 71 Caller/Recipient Relation to Patient: Self Emergency Contactx: USHA CORNEJO Triage Summary Nurse Summary: PATIENT CONCERN/DURATION/ONSET: [place] c/o ''I' m wondering if I can start an antihistamine like claritin daily. I do have cynthia t kind at home, or I can try another kind too if the provider recommends. I d on't have a history of allergies but for past 1-1.5 weeks I've been hav ing: sinus congestion, slight pain in both ears; rates pain''/10'', eyes get burning feeling at night at times, but not watery; and intermittent irritati ng dry cough. It does seem worse after I'm outside and then go back in the house at night. I dont have a headache today, but do get them at times, but no t worse than my usual headaches. . I took a home covid test yesterday and was negative, and no one else is sick at home. I'm just not sure if its head cold or s ome allergies this fall, but its not awful. I don't think I need an appointment or urgent care or anything.'' denies sinus drainag e, productive cough, wheezing/ shortness of breath, moderate to severe ear pain, sore throat, body a ches, fatigue, CP, weakness, severe pink, or fever/chills. [place] is currently on Cipro and started last e vening for ACUTE PROSTATITIS, ordered by the [place] urology. WHAT HAS PATIENT TRIED TO TREAT THE SYMPTOMS: ''advil once in awhile, my irrigated ears 2 days ago and helped.'' HISTORY/PREVIOUS TREATMENT: ACUTE PROSTATITIS diagnosed on 12/25/21, on ANTBX -cipro for next 30 days. reports hx of Pink due to neck pain.'' WHAT IS PATIENT GOAL FOR THE CALL: Advice for care: ''If my provider thinks I can be on claritin or something for my sinus congestion and if ok to take with the a ntibiotic.'' Was Care Now considered (TELE or VVC)? CARE NOW LIP virtual care not offered du e to 's acceptance of home care recommendation, including home care advice and w arning signs (see below) at time of call. DISPLAY AND BANNER DESIGNER DISPOSITION: Assigned care team WILLIAM schmid 2. PCP is Praveena Enriquez MD. Recommended per system triage is home care recom mendations due to sinus congestion and slight ear pain. agrees with plan of care and verbalizes via teach-back s/s to seek ED/UC (disclaimer read and explained) evaluation as well as home care advice offered (e.g. if symptoms worsen or new symptoms present should seek medical care) and as outlined in education section below . Best contact for is [phone] ([facility] ed). [facility] Coronavirus Disease 2019 (COVI D-19) Screen, shanita. August 2020 DIAGNOSIS AND TESTING STATUS: Has [place] been diagnosed with COVID-19: () Yes* Date: (continue screening) (x) No (Continue Screening) Comment(s): Is waiting for COVID-19 test results: () Yes (Continue Screening) (x) No (Continue Screening) Comment: [place] reports'' took home covid test on 12/29 and was negative.'' SCREEN: Signs and Symptoms: a. Fever or chills: () Yes Check all that apply: () Fever () Chills (x) No Comment(s): b. New or worsening cough or shortness of breat h: () Yes Check all that apply: (x) Cough () Shortness of breath (Dyspnea) () No Comment(s): ''intermittent nonproductive, irrit ating cough'' c. Any cold or flu-like symptoms: () Yes Check all that apply: (x) Cold like symptoms () Runny Nose (Rhinorrhea) () Sore Throat () Flu-like symptoms () Fatigue () Muscle Pain (Myalgia) (x) No Comment(s):sinus congestion, bilateral ear pain d. New onset diarrhea, nausea or vomiting: [...] Comment(s): SCREEN RESULT: Any symptom or exposure= positiv e screen (x) POSITIVE SCREEN: Patient has a Positive sym ptom and/or exposure. Follow-up required. () Negative Screen Pain Score: 1 Conducted triage/discussed symptoms Utilized the Triage Tool: Yes Conducted COVID Screening COVID Screening Results: Positive Chief Complaint: Sinus Congestion System WHEN: Self-care Nurse's Recommendation / WHEN: Selfcare System WHERE: Home Nurse's Recommendation / WHERE: Home Care Covid Screening Patient confirms the following symptoms Cough Confirms exposure in the last 14 days: No known exposure No known exposure POSITIVE symptom/s or exposure COVID Test to Treat Patient has a COVID home test kit Has patient had a test?: Yes Home Test Result is negative with COVID symptoms Test was performed in the last 5 days: Yes FDA authorized test kit Date of Test was: 2021-12-29 00:00:00 Patient Disposition Patient/Caregiver agrees to plan of care: Yes Patient WHERE: Homecare Patient WHEN: Selfcare Summary of Actions Test to Treat Outcome: Patient declined [facility] VCV medical provider appointment Other course(s) of action Provided location of Urgent Care Center Advised of [place] Act [facility] Benefits Generated msg to PACT/Provider Provided guidance for worsening symptoms: *Hart r/Patient* advised to call facilities [facility] or seek [facility] medical attention for new or worsening symptoms Alternative courses of action: message marketing manager health communications s ent to pact team Clinical Contact Center Codes Clinic/Location: V23 FAR PHONE CCC RN TXCC Triage Complete Triage Note: Phone Triage 30 Dec 2021 19:06:59 +0000 [facility] Demographics 71 y/o Male Results CC: Sinus Congestion Software suggested: Self-care Software suggested follow-up location: Home, co [facility] care Values and Measures Duration of CC: 1 Weeks Positive Responses HPI: cough, new or worsening HPI: nasal congestion, duration longer than 2 d ays MEDS: antibiotic VS: respiratory rate not taken VS: temperature not taken Negative Responses Denies: HPI: breathing more rapidly than usual Denies: HPI: chest pain, pleuritic Denies: HPI: cough, moderate to severe Denies: HPI: cough, purulent sputum Denies: HPI: fever, subjective Denies: HPI: headache Denies: HPI: hemoptysis, blood-streaked sputum Denies: HPI: myalgias Denies: HPI: pain, maxillary or frontal sinuses Denies: HPI: rhinorrhea, yellow or brown Denies: HPI: sore throat Denies: HPI: vomiting Denies: HPI: weakness, fatigue, more than usual Denies: HPI: wheezing, new or worsening Denies: MEDS: antibiotic use, duration longer t sheets 3 days Denies: MEDS: chemotherapy Denies: PMH: diabetes Denies: PMH: HIV positive Denies: PMH: sickle cell anemia Denies: PSH: organ transplant Denies: PSH: spleen removed [place] Education Verbal Education Provided for: Nasal or Sinus Congestion Home Care Education Log Home care for nasal or sinus congestion include s: Avoid alcohol. Do not smoking Avoid exposure to secondary smoke Drink plenty of fluids. Get plenty of rest. Use saline nose drops. Blow your nose gently. Place a vaporizer or nebulizer in the bedroom a t night. Apply warm compresses: Apply compresses to your face for 20-30 minutes , 3 times a day. Be aware of the common side effects that may be caused by your medication. Ask your provider if you can take oral antihist amines: Notify your provider if you have nasal or sinus congestion and any of the following: Bloody nasal mucus Brown nasal mucus Difficulty breathing Nasal foreign body: Something is stuck in the nose Persistent vomiting Fever over 102 degrees F (38.8 C) Worsening cough Worsening earache Worsening facial pain Worsening sore throat Worsening headache /es/ TRISHA RYANN ESQUIVEL RN, V23 [facility] Signed: 12/30/2021 14:50
[2022-02-07 12:37] LABS: Chloride* 105 mmol/L (96-114)
[2022-02-07 12:38] LABS: Potassium* 4.8 mmol/L (3.6-5.1); Sodium* 140 mmol/L (135-149)
[2022-02-07 12:40] LABS: Creatinine* 0.9 mg/dL (0.5-1.5); Est. Creatinine Clearance* 76.49; Estimated Glomerular Filt Rate 90 ml/min
[2022-02-07 12:41] LABS: Blood Urea Nitrogen* 17 mg/dL (7-30); Calcium* 9.3 mg/dL (8.4-10.6); Carbon Dioxide* 25 mmol/L (20-32); Glucose* 101 mg/dL (60-115)
== END 2022-02-07 12:22 | disposition home or self-care (01) ==
PROVIDERS: Emergency Provider Family Medicine
DX: U07.1 COVID-19 (principal); R05.9 Cough, unspecified; M79.10 Myalgia, unspecified site
CPT/HCPCS: 36415; 80048; 87502; 87634; 87635; 99283